=== PATIENT | female | born 1935 | race Caucasian/White ===

== ENCOUNTER 2016-11-30 12:50 | Outpatient (CLI) | payer MEDICARE, OTHER | END 2016-11-30 12:51 | disposition home or self-care (01) | DX: Z12.31 Encounter for screening mammogram for malignant neoplasm of breast (principal) ==

== ENCOUNTER 2018-06-23 06:01 | Day surgery (SDC) | payer MEDICARE, OTHER ==
[2018-06-23] MEDS ORDERED: PHENYLEPHRINE 2.5% OPHTH 2 ML DROPS ONE (06:26)
[2018-06-23] MEDS ORDERED: KETOROLAC 0.45% OPHTH DROPS ONE (06:26)
[2018-06-23] MEDS ORDERED: PROPARACAINE 0.5% OPHTH DROPS 15 ML ONE (06:26)
[2018-06-23] MEDS ORDERED: CYCLOPENTOLATE 1% OPHTH DROPS 2 ML ONE (06:26)
[2018-06-23] MEDS ORDERED: PROPARACAINE 0.5% OPHTH DROPS 15 ML LEFTEYE ONE ×2 (06:45→07:24)
[2018-06-23] MEDS ORDERED: KETOROLAC 0.45% OPHTH DROPS LEFTEYE ONE (06:45)
[2018-06-23] MEDS ORDERED: CYCLOPENTOLATE 1% OPHTH DROPS 2 ML LEFTEYE ONE (06:45)
[2018-06-23] MEDS ORDERED: PHENYLEPHRINE 2.5% OPHTH 2 ML DROPS LEFTEYE ONE (06:45)
--- NOTE | 2018-06-23 06:48 | ANESTHESIA ---
Pre-Anesthesia VS, & Labs - Diagnosis Left nuclear sclerotic cataract - Procedure Left phaco with IOL implant Vital Signs: Temp Pulse Resp BP Pulse Ox 36.5 C 74 18 124/75 92 06/23/18 06:38 06/23/18 06:38 06/23/18 06:38 06/23/18 06:38 06/23/18 06:38 Height 5 ft 2 in Weight (kg) 74.6 kg - NPO >8 hours - Is Patient ?: No Home Medications and Allergies Aspirin [Aspir 81] 81 mg PO DAILY 01/08/15 Carvedilol [Coreg] 6.25 mg PO DAILY 01/08/15 Cholecalciferol (Vitamin D3) [Vitamin D3] 1,000 unit PO DAILY 01/08/15 Glipizide [Glipizide ER] 2.5 mg PO DAILY 01/08/15 Levothyroxine [Synthroid] 50 mcg PO QDAC 01/08/15 Lisinopril 20 mg PO DAILY 01/08/15 Rosuvastatin Calcium [Crestor] 20 mg PO DAILY 01/08/15 Amlodipine Besylate 5 mg PO DAILY 01/10/15 Allergies/Adverse Reactions: Allergies Allergy/AdvReac Type Severity Reaction Status Date / Time No Known Drug Allergies Allergy Verified 01/08/15 07:51 Anes History & Medical History - Medical History Cardiovascular: reports: Hypertension, High cholesterol Pulmonary: reports: None, COPD (longtime smoking history) Gastrointestinal: reports: None Urinary: reports: None Musculoskeletal: reports: Osteoarthritis, Chronic back pain Endocrine/Autoimmune: reports: Type 2 diabetes, HyPOthyroidism Skin: reports: None - Surgical History General: Colonoscopy Cardiothoracic: Coronary stent Gynecologic: Hysterectomy, Oophrectomy Exam General: Alert Mouth Openin Fingerbreadth Mallampati classification: II Respiratory: Decreased breath sounds Cardiovascular: Regular rate, Normal S1, Normal S2 Mental/Cognitive Status: Alert/Oriented X3 Plan Anesthesia Type: MAC Consent for Procedure(s) Verified and Reviewed: No Code Status: Attempt Resuscitation ASA classification: 3-Severe systemic disease Is this case an emergency?: No
[2018-06-23] MEDS ORDERED: LACTATED RINGERS 500 ML IV ONE (06:52)
[2018-06-23] MEDS ORDERED: EPINEPHrine 1 MG/ML AMP ONE (07:08)
[2018-06-23] MEDS ORDERED: BRIMONIDINE 0.2% OPHTH DROPS 5 ML ONE (07:09)
[2018-06-23] MEDS ORDERED: TIMOLOL 0.5% OPHTH DROPS ONE (07:09)
[2018-06-23] MEDS ORDERED: TRIAMCIN/MOXIFLOX OPHTHALMIC 0.6 ML VIAL IO ONE (07:09)
[2018-06-23] MEDS ORDERED: BSS/LIDOCAINE/EPINEPHRINE 1 ML SYRINGE ONE (07:10)
[2018-06-23] MEDS ORDERED: VANCOMYCIN OPHTHALMI 8MG/0.8ML 8 MG/0.8 ML SYRINGE IO ONE (07:10)
[2018-06-23] MEDS ORDERED: CHONDR SULF/HYALURONATE SYRINGE IO ONE (07:28)
[2018-06-23] MEDS ORDERED: EPINEPHrine 1 MG/ML AMP IR ONE (07:28)
[2018-06-23] MEDS ORDERED: MIDAZOLAM 2 MG/2 ML VIAL IVP ONE (07:30)
[2018-06-23] MEDS ORDERED: BSS/LIDOCAINE/EPINEPHRINE 1 ML SYRINGE IO ONE (07:37)
[2018-06-23] MEDS ORDERED: BRIMONIDINE 0.2% OPHTH DROPS 5 ML OPTH ONE (07:39)
[2018-06-23] MEDS ORDERED: TIMOLOL 0.5% OPHTH DROPS OPTH ONE (07:39)
[2018-06-23 07:59] VITALS: BP 121/62
--- NOTE | 2018-06-23 09:48 | OPERATIVE REPORT ---
DATE OF SERVICE: 06/23/2018 Physician: Kike Garza MD PREOPERATIVE DIAGNOSIS: Visually significant cataract, left eye. This was her first cataract surgery. POSTOPERATIVE DIAGNOSIS: Visually significant cataract, left eye. NAME OF PROCEDURE: Phacoemulsification with posterior chamber intraocular lens implant, left eye. SURGEON: Dr. Kike Garza. ANESTHESIA: Monitored anesthesia care. COMPLICATIONS: None. OPERATIVE INDICATIONS: This is an 82-year-old woman with progressive vision loss in left eye due to 4+ nuclear sclerotic cataract. Best corrected visual acuity was 20/40 with glare to 20/80 in the lef t eye. Indications for surgery are overall decrease in vision, difficulty seeing street signs, diffi culty driving in low light or at night, and difficulty driving at night because of headlights from ot her vehicles and/or street lights. She was consented at length concerning risks and benefits of aleida ract surgery, after which she expressed a desire to proceed with surgery. OPERATIVE PROCEDURE: Patient was taken into OR #3 and placed under monitored anesthesia care. Surgi priya timeout was conducted confirming correct patient, correct procedure, and correct surgical site. She was given topical anesthesia and prepped and draped in usual sterile fashion. The eye was entere d at the 6 and 3-o'clock positions. Intracameral Shugarcaine was injected into the anterior chamber, followed by Viscoat. A continuous-tear curvilinear capsulorrhexis was performed. Nucleus was hydro dissected and phacoemulsified. The cortex was evacuated using automated infusion and aspiration. Pr ovisc was injected in the capsular bag, and a 21.0-diopter intraocular lens inserted in the bag. Olman roximately 0.8 mL of a mixture of triamcinolone, moxifloxacin, and vancomycin was injected subconjunc tivally in the superior quadrant for infection and inflammation prophylaxis. I and A was used to marlyn boris the viscoelastic materials. Eye was inflated to physiologic pressure using a balanced salt radha ution and found to be watertight. Patient was taken from the operating room in good condition and gi shruthi postoperative instructions. TD: 06/23/2018 07:55
== END 2018-06-23 06:02 | disposition home or self-care (01) ==
LOC: SDS 06:01
PROVIDERS: ATTEND Ophthalmology
PROC: 08RK3JZ Replacement of Left Lens with Synthetic Substitute, Percutaneous Approach (ICD-10-PCS; principal; 2018-06-23 07:30)
DX: H25.12 Age-related nuclear cataract, left eye (principal); E11.9 Type 2 diabetes mellitus without complications; I11.0 Hypertensive heart disease with heart failure; I50.9 Heart failure, unspecified; E78.00 Pure hypercholesterolemia, unspecified; E03.9 Hypothyroidism, unspecified; J44.9 Chronic obstructive pulmonary disease, unspecified; Z87.891 Personal history of nicotine dependence; Z95.5 Presence of coronary angioplasty implant and graft
CPT/HCPCS: 66984; A9270; J3490; V2632

== ENCOUNTER 2018-07-28 05:55 | Day surgery (SDC) | payer MEDICARE, OTHER ==
[2018-07-28] MEDS ORDERED: PHENYLEPHRINE 2.5% OPHTH 2 ML DROPS ONE (06:27)
[2018-07-28] MEDS ORDERED: KETOROLAC 0.45% OPHTH DROPS ONE (06:27)
[2018-07-28] MEDS ORDERED: CYCLOPENTOLATE 1% OPHTH DROPS 2 ML ONE (06:27)
[2018-07-28] MEDS ORDERED: PROPARACAINE 0.5% OPHTH DROPS 15 ML ONE (06:28)
[2018-07-28] MEDS ORDERED: LACTATED RINGERS 500 ML IV ONE (06:50)
[2018-07-28] MEDS ORDERED: EPINEPHrine 1 MG/ML AMP ONE (06:58)
[2018-07-28] MEDS ORDERED: TRIAMCIN/MOXIFLOX OPHTHALMIC 0.6 ML VIAL IO ONE ×3 (06:58→07:44)
[2018-07-28] MEDS ORDERED: VANCOMYCIN OPHTHALMI 8MG/0.8ML 8 MG/0.8 ML SYRINGE IO ONE (06:59)
[2018-07-28] MEDS ORDERED: TIMOLOL 0.5% OPHTH DROPS ONE (06:59)
[2018-07-28] MEDS ORDERED: BRIMONIDINE 0.2% OPHTH DROPS 5 ML ONE (06:59)
[2018-07-28] MEDS ORDERED: BSS/LIDOCAINE/EPINEPHRINE 1 ML SYRINGE ONE (06:59)
[2018-07-28] MEDS ORDERED: PROPARACAINE 0.5% OPHTH DROPS 15 ML RIGHTEYE ONE ×2 (07:00→07:44)
[2018-07-28] MEDS ORDERED: KETOROLAC 0.45% OPHTH DROPS RIGHTEYE ONE (07:00)
[2018-07-28] MEDS ORDERED: PHENYLEPHRINE 2.5% OPHTH 2 ML DROPS RIGHTEYE ONE (07:00)
[2018-07-28] MEDS ORDERED: CYCLOPENTOLATE 1% OPHTH DROPS 2 ML RIGHTEYE ONE (07:00)
--- NOTE | 2018-07-28 07:00 | ANESTHESIA ---
Pre-Anesthesia VS, & Labs - Diagnosis Right senile combined cataract - Procedure Right phaco with IOL implant Height 5 ft 2 in - NPO >8 hours - Is Patient ?: No - Lab Results Lab results reviewed: No Home Medications and Allergies Home Medications: Ambulatory Orders SITagliptin [Januvia] 100 mg PO DAILY 07/27/18 Aspirin [Aspir 81] 81 mg PO DAILY 01/08/15 Carvedilol [Coreg] 6.25 mg PO DAILY 01/08/15 Cholecalciferol (Vitamin D3) [Vitamin D3] 1,000 unit PO DAILY 01/08/15 Glipizide [Glipizide ER] 2.5 mg PO DAILY 01/08/15 Levothyroxine [Synthroid] 75 mcg PO QDAC 01/08/15 Lisinopril 20 mg PO DAILY 01/08/15 Rosuvastatin Calcium [Crestor] 20 mg PO DAILY 01/08/15 Amlodipine Besylate 5 mg PO DAILY 01/10/15 SITagliptin [Januvia] 100 mg PO DAILY 07/27/18 Allergies/Adverse Reactions: Allergies Allergy/AdvReac Type Severity Reaction Status Date / Time No Known Drug Allergies Allergy Verified 07/27/18 14:02 Anes History & Medical History - Anesthetic History Family history of Malignant Hyperthermia: Denies - Medical History Cardiovascular: reports: Congestive heart failure, Hypertension, High cholesterol Pulmonary: reports: Shortness of breath Gastrointestinal: reports: None Urinary: reports: None Neuro: reports: None Musculoskeletal: reports: Osteoarthritis Endocrine/Autoimmune: reports: Type 2 diabetes Skin: reports: None Smoking Status: Former smoker Psychosocial: reports: No issues indicated - Surgical History General: Colonoscopy Cardiothoracic: Coronary stent Gynecologic: Hysterectomy Exam General: Alert Mouth Opening: Greater than 4 Fingerbreadths Neck Mobility: Normal Mallampati classification: II Respiratory: Lungs clear Cardiovascular: Regular rate Extremities: No clubbing Mental/Cognitive Status: Alert/Oriented X3 Cognitive Status: Within normal limits Plan Anesthesia Type: MAC Consent for Procedure(s) Verified and Reviewed: Yes Code Status: Attempt Resuscitation ASA classification: 3-Severe systemic disease Is this case an emergency?: No
[2018-07-28] MEDS ORDERED: MIDAZOLAM 2 MG/2 ML VIAL IVP ONE (07:35)
[2018-07-28] MEDS ORDERED: CHONDR SULF/HYALURONATE SYRINGE IO ONE (07:43)
[2018-07-28] MEDS ORDERED: BRIMONIDINE 0.2% OPHTH DROPS 5 ML OPTH ONE (07:43)
[2018-07-28] MEDS ORDERED: EPINEPHrine 1 MG/ML AMP IVP ONE (07:43)
[2018-07-28] MEDS ORDERED: TIMOLOL 0.5% OPHTH DROPS OPTH ONE (07:43)
[2018-07-28] MEDS ORDERED: BSS/LIDOCAINE/EPINEPHRINE 1 ML SYRINGE IO ONE ×2 (07:44)
[2018-07-28 08:14] VITALS: BP 136/57
--- NOTE | 2018-07-28 08:21 | OPERATIVE REPORT ---
DATE OF SERVICE: 07/28/2018 Physician: Kike Garza MD PREOPERATIVE DIAGNOSIS: Visually significant cataract, right eye. Cataract surgery was performed on the left eye on June 23, 2018. POSTOPERATIVE DIAGNOSIS: Visually significant cataract, right eye. Cataract surgery was performed o n the left eye on June 23, 2018. PROCEDURE: Phacoemulsification with posterior chamber intraocular lens implant, right eye. SURGEON: Kike Garza MD ANESTHESIA: Monitored anesthesia care. COMPLICATIONS: None. OPERATIVE INDICATIONS: This is an 82-year-old woman with progressive vision loss in the right eye du e to 4+ nuclear sclerotic cataract. Best corrected visual acuity was 20/25 with glare to 20/70 in th e right eye. Indications for surgery are overall decrease in vision, difficulty seeing street signs, difficulty driving in low light or at night, difficulty driving at night because of headlights from other vehicles and/or street lights and difficulty with glare or bright lights in any situation. She was consented at length concerning risks and benefits of cataract surgery, after which she expressed her desire to proceed with surgery. OPERATIVE PROCEDURE: The patient was taken into OR #3 and placed under monitored anesthesia care. S urgical timeout was conducted confirming correct patient, correct procedure, and correct surgical sit e. She was given topical anesthesia, and prepped and draped in usual sterile fashion. The eye was e ntered at the 12 and 9 o'clock positions. Intracameral Shugarcaine was injected into the anterior ch vincent, followed by Viscoat. A continuous-tear curvilinear capsulorrhexis was performed. The nucleus was hydrodissected and phacoemulsified. Cortex was evacuated using automated infusion and aspiratio n. Provisc was injected in the capsular bag, and a 22.0 diopter intraocular lens was inserted in the bag. Approximately 0.8 mL of a mixture of triamcinolone, moxifloxacin and vancomycin was injected s ubconjunctivally in the superior quadrant for infection and inflammation prophylaxis. I and A, was u sed to evacuate the viscoelastic material. The eye was inflated to physiologic pressure using balanc ed salt solution and found to be watertight. The patient was taken from the operating room in good c ondition and given postoperative instructions. TD: 07/28/2018 08:07
== END 2018-07-28 05:56 | disposition home or self-care (01) ==
LOC: SDS 05:55
PROVIDERS: ATTEND Ophthalmology
PROC: 08RJ3JZ Replacement of Right Lens with Synthetic Substitute, Percutaneous Approach (ICD-10-PCS; principal; 2018-07-28 07:30)
DX: H25.11 Age-related nuclear cataract, right eye (principal); I50.9 Heart failure, unspecified; E11.9 Type 2 diabetes mellitus without complications; E78.00 Pure hypercholesterolemia, unspecified; Z87.891 Personal history of nicotine dependence; E03.9 Hypothyroidism, unspecified
CPT/HCPCS: 66984; A9270; J3490; V2632

== ENCOUNTER 2018-11-14 19:10 | Outpatient (CLI) | payer MEDICARE, OTHER | END 2018-11-14 19:11 | disposition critical access hospital (66) | LOC: EMS 19:10 | PROVIDERS: ATTEND Surgery | DX: R55 Syncope and collapse (principal); R47.89 Other speech disturbances | CPT/HCPCS: A0425; A0427 ==

== ENCOUNTER 2018-11-14 19:23 | Emergency (ER) | payer MEDICARE, OTHER ==
[2018-11-14 19:54] LABS: BASOPHILS % (AUTO) 0.7 %; EOSINOPHILS # (AUTO) 0.2 10^3/uL (0.0-0.7); EOSINOPHILS % (AUTO) 2.7 %; HGB - HEMOGLOBIN 9.7 g/dL (12.0-16.0); LYMPHOCYTES # (AUTO) 1.4 10^3/uL (1.5-3.5); LYMPHOCYTES % (AUTO) 22.3 %; MEAN CORPUSCULAR HEMOGLOBIN 28.7 pg (27.0-31.0); MEAN CORPUSCULAR HGB CONC 32.9 g/dL (32.0-36.0); MEAN CORPUSCULAR VOLUME 87.2 fL (81.0-99.0); MEAN PLATELET VOLUME 9.1 fL (7.9-10.8); MONOCYTES # (AUTO) 0.7 10^3/uL (0.0-1.0); MONOCYTES % (AUTO) 10.8 %; NEUTROPHILS % (AUTO) 63.5 %; PLT - PLATELET COUNT 155 10^3/uL (130-450); RED BLOOD COUNT 3.38 10^6/uL (4.20-5.40); WHITE BLOOD COUNT 6.3 x10^3/uL (4.8-10.8)
[2018-11-14 20:10] LABS: ALBUMIN 3.2 g/dL (3.2-5.5); ALBUMIN/GLOBULIN RATIO 1.5 (1.0-2.2); BILIRUBIN,TOTAL 0.6 mg/dL (0.2-1.0); CALCIUM 7.8 mg/dL (8.5-10.3); CREATININE 1.7 mg/dL (0.4-1.0); TOTAL PROTEIN 5.3 g/dL (6.7-8.2)
--- NOTE | 2018-11-14 20:44 | ED Physician Documentation ---
PD HPI SYNCOPE - Stated complaint Stated Complaint: SYNCOPE - Chief complaint Chief Complaint: General - History obtained from History obtained from: Patient, Family - History of Present Illness Witnessed: Witnessed Timing - onset: Today Duration: Minutes Preceding symptoms: Light headed. No: Headache, Chest pain, Abdominal pain, Nausea / vomiting Associated symptoms: Diaphoresis. No: Headache, Chest pain, Dyspnea Contributing factors: No: Recent med change, Decreased PO intake (She had finished eating and was seeming comfortable. She denied any abdominal pain cramps or nausea. She got up to go to the next room and looked pale and was sweaty. Her son helped her sit down and she appeared to pass out. There is no fall to it. She woke back up after a minute or so and he tried walking her to the next room and she was still only slightly awake and then seemed to faint completely again. He called 911. Instructed him to lay her down, which she did. She seemed to awaken a bit after that by EMS arrival. EMS did note her blood pressure to be in the 80s systolic and her heart rate to be 55-58. Her son says she had episodes similar to this without fully fainting after meals a couple of times in the last week. She has not had a recent change in medicines. She has had emotional stress with her being in the ICU and has not slept well the past week. She did have a little bit less food intake earlier in the week but had eaten okay this past day or 2.) Injury occurred: No: Fell, Head injury, Neck injury Review of Systems Constitutional: denies: Fever Nose: denies: Rhinorrhea / runny nose, Congestion Throat: denies: Sore throat Cardiac: denies: Chest pain / pressure, Palpitations, Pedal edema, Calf pain Respiratory: denies: Dyspnea, Cough, Wheezing GI: denies: Abdominal Pain, Nausea, Vomiting, Diarrhea Neurologic: reports: Near syncope, Syncope. denies: Generalized weakness, Altered mental status, Headache Psychiatric: reports: Insomnia. 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 Cardiovascular: Coronary stent - Present Medications Home Medications: Ambulatory Orders Medication Instructions Recorded Confirmed Aspirin [Aspir 81] 81 mg PO DAILY 01/08/15 11/14/18 Carvedilol [Coreg] 6.25 mg PO DAILY 01/08/15 11/14/18 Cholecalciferol (Vitamin D3) 1,000 unit PO DAILY 01/08/15 11/14/18 [Vitamin D3] Glipizide [Glipizide ER] 2.5 mg PO DAILY 01/08/15 11/14/18 Levothyroxine [Synthroid] 75 mcg PO QDAC 01/08/15 11/14/18 Lisinopril 20 mg PO DAILY 01/08/15 11/14/18 Rosuvastatin Calcium [Crestor] 20 mg PO DAILY 01/08/15 11/14/18 Amlodipine Besylate 5 mg PO DAILY 01/10/15 11/14/18 SITagliptin [Januvia] 100 mg PO DAILY 07/27/18 11/14/18 hydroCHLOROthiazide 50 mg PO DAILY 11/14/18 11/14/18 [Hydrochlorothiazide] - Allergies Allergies/Adverse Reactions: Allergies Allergy/AdvReac Type Severity Reaction Status Date / Time No Known Drug Allergies Allergy Verified 11/14/18 19:33 - Social History Does the pt smoke?: No Smoking Status: Former smoker Does the pt drink ETOH?: No Does the pt have substance abuse?: No PD ED PE NORMAL - Vitals Vital signs reviewed: Yes (Her vital signs are showing slightly low heart rate initially in the) - General General: Alert and oriented X 3, No acute distress, Well developed/nourished - HEENT HEENT: Ears normal, Moist mucous membranes, Pharynx benign - Neck Neck: Supple, no meningeal sign, No adenopathy - Cardiac Cardiac: RRR, No murmur - Respiratory Respiratory: Clear bilaterally - Abdomen Abdomen: Normal bowel sounds, Soft, Non tender - Back Back: No CVA TTP - Derm Derm: Normal color, Warm and dry - Extremities Extremities: No tenderness to palpate, Normal ROM s pain, No edema, No calf tenderness / cord - Neuro Neuro: Alert and oriented X 3, No motor deficit, Normal speech Results - Vitals Vitals: Vital Signs - 24 hr 11/14/18 11/14/1819 19:29 19:53 20:38 Temperature 36.0 C L Heart Rate 54 L 55 L 70 Heart Rate [ Sitting] Heart Rate [ Standing] Heart Rate [ Supine] Respiratory 16 14 18 Rate Blood Pressure 87/50 L 96/53 L 119/60 Blood Pressure [Sitting] Blood Pressure [Standing] Blood Pressure [Supine] O2 Saturation 94 95 96 11/14/18 11/14/18 11/14/18 21:43 22:28 23:04 Temperature 36.6 C Heart Rate 75 78 Heart Rate [ 96 Sitting] Heart Rate [ 88 Standing] Heart Rate [ 82 Supine] Respiratory 17 18 Rate Blood Pressure 137/68 H 143/77 H Blood Pressure 150/77 H [Sitting] Blood Pressure 156/78 H [Standing] Blood Pressure 135/84 H [Supine] O2 Saturation 97 96 Oxygen O2 Source Room air - EKG (time done) 19:42 Rate: Rate (enter#) (52) Rhythm: Sinus bradycardia [place]: Normal Intervals: Normal [place] QRS: Normal Ischemia: Normal ST segments. No: ST elevation c/w ischemia, ST depression - Labs Labs: Laboratory Tests 11/14/18 11/14/18 11/14/18 19:50 19:50 19:50 WBC 6.3 RBC 3.38 L Hgb 9.7 L Hct 29.5 L MCV 87.2 MCH 28.7 MCHC 32.9 RDW 17.0 H Plt Count 155 MPV 9.1 Neut # (Auto) 4.0 Lymph # (Auto) 1.4 L [place] # (Auto) 0.7 Eos # (Auto) 0.2 Baso # (Auto) 0.0 Absolute Nucleated RBC 0.01 Nucleated RBC % 0.1 Sodium 139 Potassium 3.8 Chloride 106 Carbon Dioxide 26 Anion Gap 7.0 BUN 37 H Creatinine 1.7 H Estimated GFR (MDRD) 29 L Glucose 185 H Calcium 7.8 L Magnesium 1.9 Total Bilirubin 0.6 AST 20 ALT 25 Alkaline Phosphatase 41 L Troponin I Total Protein 5.3 L Albumin 3.2 Globulin 2.1 Albumin/Globulin Ratio 1.5 Lipase 39 11/14/18 19:50 WBC RBC Hgb Hct MCV MCH MCHC RDW Plt Count MPV Neut # (Auto) Lymph # (Auto) [place] # (Auto) Eos # (Auto) Baso # (Auto) Absolute Nucleated RBC Nucleated RBC % Sodium Potassium Chloride Carbon Dioxide Anion Gap BUN Creatinine Estimated GFR (MDRD) Glucose Calcium Magnesium Total Bilirubin AST ALT Alkaline Phosphatase Troponin I < 0.04 Total Protein Albumin Globulin Albumin/Globulin Ratio Lipase PD MEDICAL DECISION MAKING - ED course Complexity details: considered differential (She had transient low blood pressure and heart rate. She has been not sleeping as well because her is in the ICU. She has been taking her medicines regularly. Her son says she has been eating okay and drinking fluids. On her however if her medications are just having an increased effect of her baseline even though the doses are the same. I would have her decrease her carvedilol given both some relative bradycardia and transient hypotension. She is also on lisinopril twice a day according to her med send list presented by her son. I would decrease that to once daily. She seems okay here and shared decision is to not necessarily need to admit her in the hospital as she has been doing well here for a few hours.), d/w patient Departure - Departure Disposition: 01 Home, Self Care Clinical Impression: Transient hypotension Syncopal episodes Qualifiers: Syncope type: unspecified Qualified Code(s): R55 - Syncope and collapse Condition: Stable Record reviewed to determine appropriate education?: Yes Instructions: ED Syncope Vasovagal Follow-Up: Justice Markham MD [Primary Care Provider] - Comments: Stay well-hydrated. Try to sleep well tonight. I would hold your carvedilol (Coreg) medication until follow-up with your primary care provider. Also take the lisinopril only once daily instead of twice as it says on your list. Continue your other medications. Return if further episodes of lightheadedness. Follow-up with your primary care later this week, call in the morning for an appointment. Discharge Date/Time: 11/14/18 23:04
[2018-11-14] MEDS ORDERED: SODIUM CHLORIDE 0.9% 500 ML IV ONE (21:09)
[2018-11-14 23:05] VITALS: BP 143/77
== END 2018-11-14 23:04 | disposition home or self-care (01) ==
LOC: EDUNIT# → ED 19:23
DX: I95.89 Other hypotension (principal); R00.1 Bradycardia, unspecified; R55 Syncope and collapse; I11.0 Hypertensive heart disease with heart failure; I50.9 Heart failure, unspecified; E11.9 Type 2 diabetes mellitus without complications; Z79.84 Long term (current) use of oral hypoglycemic drugs; Z79.82 Long term (current) use of aspirin; Z87.891 Personal history of nicotine dependence
CPT/HCPCS: 36415; 80053; 83690; 83735; 84484; 85025; 93005; 99284

== ENCOUNTER 2018-11-17 08:00 | Outpatient (CLI) | payer MEDICARE, OTHER ==
[2018-11-17 13:14] LABS: BASOPHILS # (AUTO) 0.1 10^3/uL (0.0-0.1); BASOPHILS % (AUTO) 0.6 %; EOSINOPHILS # (AUTO) 0.2 10^3/uL (0.0-0.7); EOSINOPHILS % (AUTO) 1.3 %; HGB - HEMOGLOBIN 11.9 g/dL (12.0-16.0); LYMPHOCYTES # (AUTO) 1.7 10^3/uL (1.5-3.5); LYMPHOCYTES % (AUTO) 11.1 %; MEAN CORPUSCULAR HEMOGLOBIN 29.1 pg (27.0-31.0); MEAN CORPUSCULAR HGB CONC 33.6 g/dL (32.0-36.0); MEAN CORPUSCULAR VOLUME 86.6 fL (81.0-99.0); MEAN PLATELET VOLUME 9.7 fL (7.9-10.8); MONOCYTES % (AUTO) 6.7 %; NEUTROPHILS % (AUTO) 80.3 %; PLT - PLATELET COUNT 183 10^3/uL (130-450); RED BLOOD COUNT 4.09 10^6/uL (4.20-5.40); RED CELL DISTRIBUTION WIDTH 16.8 % (12.0-15.0)
[2018-11-17 13:30] LABS: ALBUMIN 3.9 g/dL (3.2-5.5); ALBUMIN/GLOBULIN RATIO 1.2 (1.0-2.2); BILIRUBIN,TOTAL 0.7 mg/dL (0.2-1.0); CALCIUM 9.4 mg/dL (8.5-10.3); CREATININE 1.6 mg/dL (0.4-1.0); TOTAL PROTEIN 7.1 g/dL (6.7-8.2)
[2018-11-17 13:41] LABS: FERRITIN 16.5 ng/mL (11.0-306.8)
[2018-11-17 13:45] LABS: FOLATE 22.46 ng/mL (5.90 - >24.8)
== END 2018-11-17 23:59 | disposition home or self-care (01) ==
LOC: LAB.WCP 08:00
PROVIDERS: ATTEND Family Medicine
DX: D50.9 Iron deficiency anemia, unspecified (principal); E03.9 Hypothyroidism, unspecified
CPT/HCPCS: 36415; 80053; 82607; 82728; 82746; 83540; 83921; 84443; 84466; 85025

== ENCOUNTER 2018-11-22 09:16 | Outpatient (CLI) | payer MEDICARE, OTHER | END 2018-11-22 09:17 | disposition home or self-care (01) | LOC: DI 09:16 | PROVIDERS: ATTEND Family Medicine | DX: R55 Syncope and collapse (principal); I25.10 Atherosclerotic heart disease of native coronary artery without angina pectoris; D50.9 Iron deficiency anemia, unspecified; E03.9 Hypothyroidism, unspecified; I10 Essential (primary) hypertension; I07.1 Rheumatic tricuspid insufficiency | CPT/HCPCS: 93306 ==

== ENCOUNTER 2018-11-25 06:57 | Outpatient (CLI) | payer MEDICARE, OTHER | END 2018-11-25 06:58 | disposition short-term general hospital (02) | LOC: EMS 06:57 | PROVIDERS: ATTEND Surgery | DX: I95.9 Hypotension, unspecified (principal); R00.1 Bradycardia, unspecified | CPT/HCPCS: A0425; A0427 ==

== ENCOUNTER 2019-01-09 09:24 | Outpatient (CLI) | payer MEDICARE, OTHER | END 2019-01-09 09:25 | disposition critical access hospital (66) | LOC: EMS 09:24 | PROVIDERS: ATTEND Surgery | DX: S01.01XA Laceration without foreign body of scalp, initial encounter (principal); W01.190A Fall on same level from slipping, tripping and stumbling with subsequent striking against furniture, initial encounter; Y92.003 Bedroom of unspecified non-institutional (private) residence as the place of occurrence of the external cause | CPT/HCPCS: A0425; A0429 ==

== ENCOUNTER 2019-01-09 09:34 | Emergency (ER) | payer MEDICARE, OTHER ==
[2019-01-09] MEDS ORDERED: LIDOCAINE-EPINEPH-TETRACAINE 3 ML SYRINGE TOP STA (09:45)
[2019-01-09] MEDS ORDERED: ACETAMINOPHEN 325 MG TABLET PO STA (09:45)
--- NOTE | 2019-01-09 09:48 | ED Physician Documentation ---
PD HPI HEAD INJURY - Stated complaint Stated Complaint: FALL/ HEAD LAC - Chief complaint Chief Complaint: Trauma Hd/Nk - History obtained from History obtained from: Patient - History of Present Illness Mechanism of head injury: Fell (She says she was in the kitchen and turned and lost her footing and tripped and fell striking her forehead on the edge of the counter. She did fall to the ground but caught herself with her hands. She denied being knocked out. She did not feel badly prior to that.) Where head injury occurred: Home Timing - onset: Today Location of injury: Front Associated symptoms: No: LOC, AMS, Nausea / vomiting Symptoms worsen with: Palpation Contributing factors: No: Anticoagulated, Intoxicated Similar symptoms before: Has not had sx before Review of Systems Constitutional: denies: Fever, Chills Nose: denies: Rhinorrhea / runny nose, Congestion Throat: denies: Sore throat Cardiac: denies: Chest pain / pressure, Palpitations, Pedal edema Respiratory: denies: Cough GI: denies: Nausea, Vomiting, Diarrhea Skin: reports: Laceration (s) (just today) Neurologic: denies: Focal weakness, Syncope, Altered mental status PD PAST MEDICAL HISTORY - Past Medical History Cardiovascular: Congestive heart failure, Hypertension, High cholesterol Respiratory: Shortness of breath Neuro: None Endocrine/Autoimmune: Type 2 diabetes GI: None : None HEENT: None Psych: None Musculoskeletal: Osteoarthritis Derm: None - Past Surgical History 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 Cardiovascular: Coronary stent - Present Medications Home Medications: Ambulatory Orders Medication Instructions Recorded Confirmed Aspirin [Aspir 81] 81 mg PO DAILY 01/08/15 01/09/19 Carvedilol [Coreg] 6.25 mg PO DAILY 01/08/15 01/09/19 Cholecalciferol (Vitamin D3) 2,000 unit PO DAILY 01/08/15 01/09/19 [Vitamin D3] Glipizide [Glipizide ER] 2.5 mg PO DAILY 01/08/15 01/09/19 Levothyroxine [Synthroid] 75 mcg PO QDAC 01/08/15 01/09/19 Rosuvastatin Calcium [Crestor] 20 mg PO DAILY 01/08/15 01/09/19 Amlodipine Besylate 5 mg PO DAILY 01/10/15 01/09/19 SITagliptin [Januvia] 100 mg PO DAILY 07/27/18 01/09/19 Ferrous Sulfate 1 tab ORAL DAILY 01/09/19 01/09/19 Gabapentin 1 cap ORAL DAILY 01/09/19 01/09/19 - Allergies Allergies/Adverse Reactions: Allergies Allergy/AdvReac Type Severity Reaction Status Date / Time No Known Drug Allergies Allergy Verified 01/09/19 09:40 - Social History Does the pt smoke?: No Smoking Status: Former smoker Does the pt drink ETOH?: No Does the pt have substance abuse?: No PD ED PE NORMAL - Vitals Vital signs reviewed: Yes - General General: Alert and oriented X 3, No acute distress, Well developed/nourished - HEENT HEENT: Pharynx benign, Dentition benign, Other (Upper forehead into the frontal scalp shows a 6 cm laceration without any foreign body. It goes full-thickness through the skin showing the [place]ale[place]. No obvious foreign bodies. 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, No motor deficit, No sensory deficit, Normal speech Eye Opening: Spontaneous Motor: Obeys Commands Verbal: Oriented GCS Score: 15 Results - Vitals Vitals: Vital Signs - 24 hr 01/09/19 01/09/19 09:36 11:23 Temperature 36.5 C 36.8 C Heart Rate 89 69 Respiratory 18 16 Rate Blood Pressure 183/69 H 179/71 H O2 Saturation 95 96 Oxygen O2 Source Room air - Rads (name of study) head CT Radiology: Prelim report reviewed, EMP read contemporaneously (No acute bleeding or fractures.), See rad report Procedures - Laceration (location) frontal forehead and scalp Length in cm: 6 Wound type: Linear, Into subcut fat, Clean. No: Contaminated Neurovascular status: Sensory intact Anesthesia: LET, Lidocaine 1% with epi Wound Preparation: Wound explored, To the base. No: FB identified Deep layer closure: Vicryl, size #-0 - enter number (4), # sutures - enter number (5) Skin layer closure: Nylon, Running, Size #-0 - enter number (5), Sutures - enter # (18) Other: Patient tolerated well, No complications, Tetanus UTD Complexity: Intermediate PD MEDICAL DECISION MAKING - ED course Complexity details: considered differential, d/w patient Departure - Departure Disposition: 01 Home, Self Care Clinical Impression: Fall from slip, trip, or stumble Qualifiers: Encounter type: initial encounter Qualified Code(s): W01.0XXA - Fall on same level from slipping, tripping and stumbling without subsequent striking against object, initial encounter Laceration of forehead Qualifiers: Encounter type: initial encounter Qualified Code(s): S01.81XA - Laceration without foreign body of other part of head, initial encounter Condition: Stable Record reviewed to determine appropriate education?: Yes Instructions: ED Laceration Facial Sutr Tape Follow-Up: Justice Markham MD [Primary Care Provider] - Comments: It is okay to wash and shower. Clean off the wound twice a day with soap and water, or peroxide and water. Apply some antibiotic ointment to it to keep it moist. Also to watch for signs of infection such as purulence, redness or increasing pain. Return to your primary care or the ER at the specified time for suture removal. Suture removal 8 to 10 days. Discharge Date/Time: 01/09/19 11:26
--- NOTE | 2019-01-09 10:34 | CT Report ---
Reason: fell and struck frontal /forehead Procedure Date: 01/09/2019 Accession Number: [id number] / [id number] Procedure: CT - HEAD WO CPT Code: FULL RESULT: EXAM: CT HEAD EXAM DATE: 01/09/2019 10:19 AM. CLINICAL HISTORY: Fell and struck frontal/forehead. COMPARISON: None. TECHNIQUE: Multiaxial CT images were obtained from the foramen magnum to the vertex. Reformats: Sagittal and coronal. IV contrast: None. In accordance with CT protocol optimization, one or more of the following dose reduction techniques were utilized for this exam: automated exposure control, adjustment of mA and/or KV based on patient size, or use of iterative reconstructive technique. FINDINGS: Parenchyma: There is a small focal area of encephalomalacia involving the right frontal cortex and subcortical white matter consistent with sequela of remote infarction. There is confluent low density in the periventricular white matter most likely indicating chronic microvascular ischemic changes. No intraparenchymal hemorrhage. No evidence of mass, midline shift, or CT findings of acute infarction. Extraaxial Spaces: Normal for age. No subdural or epidural collections identified. Ventricles: Normal in size and position. Sinuses and Orbits: Imaged paranasal sinuses, orbits, and mastoids show no significant abnormality. Bones: No evidence of fracture or calvarial defect. Other: Soft tissue swelling over the right forehead and frontal scalp with small focal laceration. IMPRESSION: 1. Right frontal scalp injury with small laceration. No evidence of calvarial fracture or acute intracranial injury/hemorrhage. 2. 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 No evidence of acute infarction by CT. RAD[facility]
[2019-01-09 11:24] VITALS: BP 179/71
== END 2019-01-09 11:26 | disposition home or self-care (01) ==
LOC: EDUNIT# → ED 09:34
DX: S01.01XA Laceration without foreign body of scalp, initial encounter (principal); S01.81XA Laceration without foreign body of other part of head, initial encounter; W01.198A Fall on same level from slipping, tripping and stumbling with subsequent striking against other object, initial encounter; Y92.000 Kitchen of unspecified non-institutional (private) residence as the place of occurrence of the external cause; I10 Essential (primary) hypertension; E11.9 Type 2 diabetes mellitus without complications; Z79.84 Long term (current) use of oral hypoglycemic drugs; Z79.82 Long term (current) use of aspirin; Z87.891 Personal history of nicotine dependence
CPT/HCPCS: 12032; 70450; 99282; 99283; A9270

== ENCOUNTER 2019-02-25 08:46 | Inpatient (IN) | payer MEDICARE, OTHER ==
[2019-02-25] MEDS ORDERED: CHERRY SYRUP 10 ML UDC PO ONE (10:34)
[2019-02-25] MEDS ORDERED: IPRATROPIUM/ALBUTEROL 3 ML NEB INH STA (10:34)
[2019-02-25] MEDS ORDERED: DEXAMETHASONE 10 MG/ML VIAL PO STA (10:34)
--- NOTE | 2019-02-25 10:37 | ED Physician Documentation ---
PD HPI URI - Stated complaint Stated Complaint: CONGESTED/COUGH - Chief complaint Chief Complaint: Resp - History obtained from History obtained from: Patient, Family - History of Present Illness Timing - onset: How many weeks ago (1) Timing duration: Weeks (1) Timing details: Gradual onset, Still present Associated symptoms: Chills, Nasal congestion, Rhinorrhea, Productive cough, Dyspnea Improves by: Rest, Medication Worsened by: Activity Similar symptoms before: Diagnosis (pneumonia) Recently seen: Not recently seen - Additional information Additional information: 83-year-old female developed chills 1 week ago and subsequently developed a cough and congestion and the cough worsened throughout the week as did increasing exertional dyspnea. Her daughter has asked her to come to the emergency department the past 2 days in a row the patient is finally acquiesced and is here today. Review of Systems Constitutional: reports: Chills. denies: Fever Eyes: denies: Decreased vision Ears: denies: Ear pain Nose: reports: Rhinorrhea / runny nose, Congestion Throat: denies: Sore throat Cardiac: denies: Chest pain / pressure, Palpitations Respiratory: reports: Dyspnea, Cough, Wheezing GI: reports: Diarrhea. denies: Abdominal Pain, Nausea, Vomiting : denies: Dysuria, Frequency Skin: denies: Rash Musculoskeletal: denies: Neck pain, Back pain PD PAST MEDICAL HISTORY - Past Medical History Cardiovascular: Congestive heart failure, Hypertension, High cholesterol Respiratory: COPD, Shortness of breath Neuro: None Endocrine/Autoimmune: Type 2 diabetes GI: None PRISONER CLASSIFICATION INTERVIEWER: None : None HEENT: None Psych: None Musculoskeletal: Osteoarthritis Derm: None - Past Surgical History Past Surgical History: Yes General: Colonoscopy /PRISONER CLASSIFICATION INTERVIEWER: Hysterectomy Cardiovascular: Coronary stent - Present Medications Home Medications: Ambulatory Orders Medication Instructions Recorded Confirmed Aspirin [Aspir 81] 81 mg PO DAILY 01/08/15 01/09/19 Carvedilol [Coreg] 6.25 mg PO DAILY 01/08/15 01/09/19 Cholecalciferol (Vitamin D3) 2,000 unit PO DAILY 01/08/15 01/09/19 [Vitamin D3] Glipizide [Glipizide ER] 2.5 mg PO DAILY 01/08/15 01/09/19 Levothyroxine [Synthroid] 75 mcg PO QDAC 01/08/15 01/09/19 Rosuvastatin Calcium [Crestor] 20 mg PO DAILY 01/08/15 01/09/19 Amlodipine Besylate 5 mg PO DAILY 01/10/15 01/09/19 SITagliptin [Januvia] 100 mg PO DAILY 07/27/18 01/09/19 Ferrous Sulfate 1 tab ORAL DAILY 01/09/19 01/09/19 Gabapentin 1 cap ORAL DAILY 01/09/19 01/09/19 - Allergies Allergies/Adverse Reactions: Allergies Allergy/AdvReac Type Severity Reaction Status Date / Time No Known Drug Allergies Allergy Verified 02/25/19 09:03 - Social History Does the pt smoke?: No Smoking Status: Never smoker Does the pt drink ETOH?: No Does the pt have substance abuse?: No - Immunizations Immunizations are current?: Yes - POLST Patient has POLST: No PD ED PE NORMAL - Vitals Vital signs reviewed: Yes (hypoxia on RA) - General General: Alert and oriented X 3, No acute distress, Well developed/nourished - HEENT HEENT: Atraumatic, PERRL, EOMI, Other (minimal inflamation to the left TM along the umbo ) - Neck Neck: Supple, no meningeal sign, No bony TTP - Cardiac Cardiac: RRR, No murmur - Respiratory Respiratory: No respiratory distress, Other (marked diminished breath sounds bilat with audible wheeze) - Abdomen Abdomen: Soft, Non tender - Back Back: No CVA TTP, No spinal TTP - Derm Derm: Normal color, Warm and dry, No rash - Extremities Extremities: No deformity, No edema - Neuro Neuro: Alert and oriented X 3, fusing machine tender 2-12 intact, No motor deficit, No sensory deficit, Normal speech Eye Opening: Spontaneous Motor: Obeys Commands Verbal: Oriented GCS Score: 15 - Psych Psych: Normal mood, Normal affect Results - Vitals Vitals: Vital Signs - 24 hr 02/25/19 02/25/19 02/25/19 09:00 11:11 11:49 Temperature 36.1 C L Heart Rate 55 L 53 L 79 Respiratory 18 18 18 Rate Blood Pressure 117/61 O2 Saturation 87 L 92 02/25/19 11:53 Temperature Heart Rate 55 L Respiratory 20 Rate Blood Pressure 147/69 H O2 Saturation 91 L Oxygen O2 Source Nasal cannula Oxygen Flow Rate 2 - Labs Labs: Laboratory Tests 02/25/19 02/25/19 02/25/19 10:50 10:50 10:50 WBC 11.2 H RBC 4.14 L Hgb 12.3 Hct 38.7 MCV 93.5 MCH 29.7 MCHC 31.8 L RDW 13.5 Plt Count 207 MPV 10.8 Neut # (Auto) 9.1 H Lymph # (Auto) 1.3 L [place] # (Auto) 0.7 Eos # (Auto) 0.1 Baso # (Auto) 0.0 Absolute Nucleated RBC 0.00 Nucleated RBC % 0.0 Sodium 141 Potassium 3.7 Chloride 102 Carbon Dioxide 28 Anion Gap 11.0 BUN 23 H Creatinine 1.2 H Estimated GFR (MDRD) 43 L Glucose 129 H Lactic Acid Calcium 8.6 Total Bilirubin 0.7 AST 16 ALT 15 Alkaline Phosphatase 64 Troponin I < 0.04 B-Natriuretic Peptide Total Protein 7.3 Albumin 3.3 Globulin 4.0 Albumin/Globulin Ratio 0.8 L Lipase 28 02/25/19 02/25/19 10:50 10:50 WBC RBC Hgb Hct MCV MCH MCHC RDW Plt Count MPV Neut # (Auto) Lymph # (Auto) [place] # (Auto) Eos # (Auto) Baso # (Auto) Absolute Nucleated RBC Nucleated RBC % Sodium Potassium Chloride Carbon Dioxide Anion Gap BUN Creatinine Estimated GFR (MDRD) Glucose Lactic Acid 0.8 Calcium Total Bilirubin AST ALT Alkaline Phosphatase Troponin I B-Natriuretic Peptide 215 H Total Protein Albumin Globulin Albumin/Globulin Ratio Lipase - Rads (name of study) chest Radiology: Prelim report reviewed (Impression: 1. Mild congestive heart failure. Asymmetric right basilar opacity may be from atelectasis or ALIYAH airspace disease possible pneumonia consider follow-up two-view chest x-ray. Left basilar atelectasis.), EMP read indepedently, See rad report Procedures - IVC sono (time) 1235 Bedside IVC sono: IVC measures (cm) (1.71), IVC collapsed c insp (cm) (0.84), Collapsibility index (0.5), Euvolemia PD MEDICAL DECISION MAKING - ED course Complexity details: reviewed old records, reviewed results, re-evaluated patient, considered differential, d/w patient, d/w family ED course: 83-year-old female arrives to the emergency department with tight wheezes and hypoxia on examination. She is administered a DuoNeb treatment with some improvement her chest x-ray is read as possible CHF and I find no evidence of CHF. We did interrogate the inferior vena cava she has a collapse of 50% and BNP is in the low 200 range. The patient did respond to the DuoNeb treatment she was administered dexamethasone as well and she does appear to have infiltrate bilaterally on her chest x-ray. She has elevated white blood cell count and is afebrile. She is administered Rocephin here in the emergency department and admission for pneumonia with hypoxia is sought. Departure - Departure Disposition: [facility] DC/Xfer Clinical Impression: Pneumonia Qualifiers: Pneumonia type: due to unspecified organism Laterality: bilateral Lung location: lower lobe of lung Qualified Code(s): J18.1 - Lobar pneumonia, unspecified organism Condition: Stable
[2019-02-25 10:59] LABS: BASOPHILS % (AUTO) 0.3 %; EOSINOPHILS # (AUTO) 0.1 10^3/uL (0.0-0.7); EOSINOPHILS % (AUTO) 0.5 %; HGB - HEMOGLOBIN 12.3 g/dL (12.0-16.0); LYMPHOCYTES # (AUTO) 1.3 10^3/uL (1.5-3.5); LYMPHOCYTES % (AUTO) 11.5 %; MEAN CORPUSCULAR HEMOGLOBIN 29.7 pg (27.0-31.0); MEAN CORPUSCULAR HGB CONC 31.8 g/dL (32.0-36.0); MEAN CORPUSCULAR VOLUME 93.5 fL (81.0-99.0); MEAN PLATELET VOLUME 10.8 fL (7.9-10.8); MONOCYTES # (AUTO) 0.7 10^3/uL (0.0-1.0); MONOCYTES % (AUTO) 6.1 %; NEUTROPHILS # (AUTO) 9.1 10^3/uL (1.5-6.6); NEUTROPHILS % (AUTO) 81.2 %; PLT - PLATELET COUNT 207 10^3/uL (130-450); RED BLOOD COUNT 4.14 10^6/uL (4.20-5.40); RED CELL DISTRIBUTION WIDTH 13.5 % (12.0-15.0); WHITE BLOOD COUNT 11.2 x10^3/uL (4.8-10.8)
--- NOTE | 2019-02-25 11:09 | XRAY Report ---
Reason: chest pain Procedure Date: 02/25/2019 Accession Number: [id number] / [id number] Procedure: XR - Chest 1 View X-Ray CPT Code: 86610 FULL RESULT: EXAM: CHEST RADIOGRAPHY EXAM DATE: 02/25/2019 10:48 AM. CLINICAL HISTORY: Chest pain. COMPARISON: CHEST 2 VIEW PA/LAT 02/16/2017 9:53 AM. TECHNIQUE: 1 view. FINDINGS: Lungs/Pleura: Mild diffuse interstitial fullness. Elongated bibasilar opacities likely due to atelectasis. Asymmetric right basilar opacity. Mediastinum: Atherosclerotic aortic calcifications. Other: Bilateral shoulder calcific tendinosis. IMPRESSION: 1. Mild congestive heart failure. 2. Asymmetric right basilar opacity may be from atelectasis and airspace disease. Possible pneumonia. Consider follow-up two-view chest x-ray. 3. Left basilar atelectasis. RADIA
[2019-02-25 11:11] LABS: ALBUMIN 3.3 g/dL (3.2-5.5); ALBUMIN/GLOBULIN RATIO 0.8 (1.0-2.2); BILIRUBIN,TOTAL 0.7 mg/dL (0.2-1.0); CALCIUM 8.6 mg/dL (8.5-10.3); CREATININE 1.2 mg/dL (0.4-1.0); TOTAL PROTEIN 7.3 g/dL (6.7-8.2)
[2019-02-25] MEDS ORDERED: cefTRIAXone 1 GM in SODIUM CHLORIDE 0.9% MINIBAG 100 ML IV STA (11:32)
[2019-02-25] MEDS ORDERED: ACETAMINOPHEN 325 MG TABLET PO PRN (13:03)
[2019-02-25] MEDS ORDERED: ZOLPIDEM 5 MG TABLET PO PRN (13:03)
[2019-02-25] MEDS ORDERED: SODIUM CHLORIDE FLUSH 0.9% 10 ML SYRINGE IVP PRN (13:03)
[2019-02-25] MEDS ORDERED: ONDANSETRON 4 MG/2 ML VIAL IVP PRN (13:03)
[2019-02-25] MEDS ORDERED: ALBUTEROL NEB 2.5 MG/3 ML INH PRN (13:09)
[2019-02-25] MEDS ORDERED: IPRATROPIUM/ALBUTEROL 3 ML NEB INH PRN (13:10)
--- NOTE | 2019-02-25 14:05 | HISTORY & PHYSICAL EXAMINATION ---
Chief Complaint - Chief Complaint Chief Complaint: cough, SOB History of Present Illness - Admitted From Admitted From:: ER - History Obtained From History obtained from: pt - History of Present Illness HPI Comment/Other: Ms. Campuzano is 83-yrs-old female with a PMH significant for HTN, CKD, HLD, CHF, COPD, SOB, DM2, osteoarthritis, who present ER complain of cough, shortness of breath. Pt report she has not been well for a week. Then she developed cough with yellowish sputum. In this Wednesday she felt very chill but she denies fever. She denies chest pain, headache, abdominal pain, nausea, vomiting. CXR reveals mild congestive heart failure, asymmetric right basilar opacity, possible pneumonia, and left basilar atelectasis. Lab test reveals pt has 1.2 creatinine, elevated WBC to 11.2. Pt is afebrile at ER. Her sats was down to 87% on room air. pt was admitted for above medical reason. History - Past Medical History Cardiovascular: reports: Congestive heart failure, Hypertension, High cholesterol Respiratory: reports: COPD, Shortness of breath Neuro: reports: None Endocrine/Autoimmune: reports: Type 2 diabetes GI: reports: None PEER SPECIALIST: reports: None : reports: None HEENT: reports: None Psych: reports: None Musculoskeletal: reports: Osteoarthritis Derm: reports: None MRSA Hx?: No - Past Surgical History General: reports: Colonoscopy /PEER SPECIALIST: reports: Hysterectomy Cardiovascular: reports: Coronary stent - Family & Social History Family History Comment/Other: pt is living at [facility]. pt had three children, two sons and one daughter. Daughter is living with her now because her was from three monthsa ago. Social History Notes: pt report she quitted cigarette smoking 10 yrs ago. she denies alcohol and drug abuse. - POLST Patient has POLST: No Meds/Allgy - Home Medications Home Medications: Ambulatory Orders Medication Instructions Recorded Confirmed Aspirin [Aspir 81] 81 mg PO DAILY 01/08/15 02/25/19 Carvedilol [Coreg] 6.25 mg PO BID 01/08/15 02/25/19 Cholecalciferol (Vitamin D3) 2,000 unit PO DAILY 01/08/15 02/25/19 [Vitamin D3] Glipizide [Glipizide ER] 2.5 mg PO DAILY 01/08/15 02/25/19 Levothyroxine [Synthroid] 75 mcg PO QDAC 01/08/15 02/25/19 Rosuvastatin Calcium [Crestor] 30 mg PO DAILY 01/08/15 02/25/19 Amlodipine Besylate 5 mg PO DAILY 01/10/15 02/25/19 SITagliptin [Januvia] 100 mg PO DAILY 07/27/18 02/25/19 Ferrous Sulfate 325 mg ORAL DAILY 01/09/19 02/25/19 Gabapentin 1 cap ORAL TID 01/09/19 02/25/19 - Allergies Allergies/Adverse Reactions: Allergies Allergy/AdvReac Type Severity Reaction Status Date / Time No Known Drug Allergies Allergy Verified 02/25/19 09:03 Review of Systems - Constitutional Constitutional: reports: Fatigue, Chills. denies: Fever, Malaise, Weakness, Poor appetite, Diaphoresis, Night sweats - Eyes Eyes: denies: Pain, Irritation, Amaurosis, Blurred vision, Spots in vision, Field loss, Vision loss, Dipolpia - Ears, Nose & Throat Ears, Nose & Throat: denies: Ear pain, Hearing loss, Hearing aids, Tinnitus, Vertigo, Nasal pain, Nasal discharge, Nosebleeds, Nasal obstruction, Nasal congestion, Postnasal drainage, Sore throat, Hoarseness, Mouth lesions - Cardiovascular Cariovascular: reports: Exertional dyspnea. denies: Irregular heart rate, Palpitations, Chest pain, Edema, Lightheadedness, Syncope, Decr. exercise mervin erance - Respiratory Respiratory: reports: Sputum production, SOB with exertion. denies: Wheezing, Snoring, Hemoptysis, Orthopnea, SOB at rest, Apnea, Stridor, Pleuritic pain - Gastrointestinal Gastrointestinal: denies: Abdominal pain, Abdominal distention, Constipation, Diarrhea, Change in bowel habits, Rectal bleeding, Black stools, Bloody stools, Nausea, Bile emesis, Jarvis blood emesis, Coffee grounds emesis, Reflux/heartburn - Genitourinary Genitourinary: denies: Dysuria, Frequency, Urgency, Hematuria, Incontinence, Flank pain, Nocturia, Urethral discharge - Musculoskeletal Musculoskeletal: denies: Muscle pain, Back pain, Muscle aches, Stiffness, Limited range of motion, Muscle weakness, Gout, Joint pain - Integumentary Integumentary: denies: Rash, Pruritis, Lesions, Dryness, Lumps, Acne, Pigment changes, Nail changes - Neurological Neurological: denies: General weakness, Focal weakness, Headache, Dizziness, Numbness, Memory problems, Pre-existing deficit, Abnormal gait, Seizures, Incoordination, Slurred speech - Psychiatric Psychiatric: denies: Depression, Anxiety, Suicidal, Delusions, Hallucinations, Homicidal - Endocrine Endocrine: denies: Polyuria, Polydypsia, Polyphagia, Intolerance to cold, Intolerance to heat - Hematologic/Lymphatic Hematologic/Lymphatic: denies: Anemia, Bruising, Petechiae, Blood clots, Lymphadenopathy, Bleeding tendencies Exam - Vital Signs Reviewed Vital Signs: Yes Vital Signs: Vital Signs x48h Temp Pulse Resp BP Pulse Ox 02/25/19 13:32 73 19 150/70 H 93 02/25/19 11:53 55 L 20 147/69 H 91 L 02/25/19 11:49 79 18 92 02/25/19 11:11 53 L 18 02/25/19 09:00 36.1 C L 55 L 18 117/61 87 L - Physical Exam General Appearance: positive: No acute distress, Alert. negative: Lethargic Eyes Bilateral: positive: Normal inspection, PERRL, No lid inflammation, Conjunctivae nml ENT: positive: ENT inspection nml, Pharynx nml, No signs of dehydration. negative: Purulent nasal drainage, Pharyngeal erythema, Oral lesions Neck: positive: Nml inspection, Thyroid nml, No JVD, Trachea midline. negative: Thyromegaly, Lymphadenopathy (R), Lymphadenopathy (L), Stiff neck, Swelling/bruising, Tracheal deviation Respiratory: positive: Chest non-tender, No respiratory distress. negative: Wheezes, Rales, Rhonchi Cardiovascular: positive: Regular rate & rhythm, No murmur, No gallop. negative: Irregularly irregular, Extrasystoles, Tachycardia, Bradycardia, JVD present, Systolic murmur, Diastolic murmur Peripheral Pulses: positive: 2+ Abdomen: positive: Non-tender, No organomegaly, Nml bowel sounds, No distention. negative: Tenderness, Guarding, Rebound Back: positive: Nml inspection. negative: CVA tenderness (R), CVA tenderness (L) Skin: positive: Color nml, No rash, Warm, Dry. negative: Cyanosis, Diaphoresis, Pallor Extremities: positive: Non-tender, Nml appearance. negative: Calf tenderness, Shashi's sign/cords Neurologic/Psychiatric: positive: Oriented x3, Sensation nml, Mood/affect nml. negative: Weakness, Sensory loss, Facial droop, Slurred/abnml speech, Depressed mood/affect Sepsis Event Note (H) - Evaluation Current Stage of Sepsis: Ruled out Conclusion/Plan - Problem List (1) Pneumonia Conclusion/Plan: pt present cough with sputum, CXR indicate pneumonia antibiotics for pt sputum culture blood culture Qualifiers: Pneumonia type: due to unspecified organism Laterality: bilateral Lung location: lower lobe of lung Qualified Code(s): J18.1 - Lobar pneumonia, unspecified organism (2) Respiratory failure with hypoxia Conclusion/Plan: pt has 87% sat on room air, pt has pneumonia and hx of COPD treatment of underline of pneumonia and COPD O2 supplement as needed (3) DM2 (diabetes mellitus, type 2) Conclusion/Plan: pt take meds not insulin at home. glucose is 129 now slide scale, check A1C, hypoglycemia (4) HTN (hypertension) Conclusion/Plan: stable, will reconcile home BP meds (5) CKD (chronic kidney disease) stage 3, GFR 30-59 ml/min Conclusion/Plan: pt has hx of CKD stage 3, today GFR 43. hydration to pt, avoid nephrotoxical agent, daily lab monitor (6) COPD (chronic obstructive pulmonary disease) Conclusion/Plan: pt has no home INH. today pt has 87%sat on room air Albuterol and Duoneb PRN (7) CHF (congestive heart failure), NYHA class I Conclusion/Plan: pt has hx of CHF. in 11/15 ECHO reveals moderate right ventricle high abnormal pressure. pt seems to have right heart failure, diastolic precaution IVF. CXR did not reveals pleural effusion or pulmonary edema continue home meds, Coreg, Aspirin. closely monitor pt (8) Full code status Conclusion/Plan: pt request full code - Lab Results Fish Bones: 02/25/19 10:50 02/25/19 10:50 Core Measures - Anticipated LOS I expect patient to be DC'd or transferred within 96 hours.: Yes - DVT/VTE - Prophylaxis VTE/DVT Device ordered at admit?: Yes VTE/DVT Prophylaxis med ordered at admit?: Yes
[2019-02-25 14:14] LABS: HEMOGLOBIN A1C 0.68 g/dL; HEMOGLOBIN A1C % 6.6 % (4.6-6.2)
[2019-02-25] MEDS ORDERED: AZITHROMYCIN INJ 500 MG in SODIUM CHLORIDE 0.9% 250 ML IV SCH (16:00)
[2019-02-25] MEDS: SODIUM CHLORIDE FLUSH 0.9% 10 ML SYRINGE IVP SCH (16:07)
[2019-02-25] MEDS: SODIUM CHLORIDE 0.9% 500 ML IV PRN (16:07)
[2019-02-25] MEDS: INSULIN ASPART 300 UNIT/3 ML PEN SUBQ SCH ×2 (19:19→21:05)
[2019-02-25] MEDS: FAMOTIDINE 20 MG TABLET PO SCH (21:03)
[2019-02-25] MEDS: CARVEDILOL 3.125 MG TABLET PO SCH (21:03)
[2019-02-25] MEDS: guaiFENesin 600 MG TABLET PO SCH (21:03)
[2019-02-25] MEDS: GABAPENTIN 300 MG CAPSULE PO SCH (21:58)
[2019-02-25] MEDS: CEFEPIME 1 GM in SODIUM CHLORIDE 0.9% MINIBAG 100 ML IV SCH (21:58)
[2019-02-26] MEDS: SODIUM CHLORIDE FLUSH 0.9% 10 ML SYRINGE IVP SCH ×3 (04:38→17:07)
[2019-02-26 06:29] LABS: BASOPHILS % (AUTO) 0.1 %; EOSINOPHILS # (AUTO) 0.1 10^3/uL (0.0-0.7); EOSINOPHILS % (AUTO) 1.7 %; HGB - HEMOGLOBIN 11.9 g/dL (12.0-16.0); LYMPHOCYTES # (AUTO) 0.8 10^3/uL (1.5-3.5); LYMPHOCYTES % (AUTO) 11.6 %; MEAN CORPUSCULAR HEMOGLOBIN 29.5 pg (27.0-31.0); MEAN CORPUSCULAR HGB CONC 32.2 g/dL (32.0-36.0); MEAN CORPUSCULAR VOLUME 91.6 fL (81.0-99.0); MEAN PLATELET VOLUME 11.5 fL (7.9-10.8); MONOCYTES # (AUTO) 0.3 10^3/uL (0.0-1.0); MONOCYTES % (AUTO) 3.8 %; NEUTROPHILS # (AUTO) 5.7 10^3/uL (1.5-6.6); NEUTROPHILS % (AUTO) 82.5 %; PLT - PLATELET COUNT 200 10^3/uL (130-450); RED BLOOD COUNT 4.04 10^6/uL (4.20-5.40); RED CELL DISTRIBUTION WIDTH 13.2 % (12.0-15.0); WHITE BLOOD COUNT 6.9 x10^3/uL (4.8-10.8)
[2019-02-26] MEDS: CEFEPIME 1 GM in SODIUM CHLORIDE 0.9% MINIBAG 100 ML IV SCH ×3 (06:32→21:33)
[2019-02-26] MEDS: GABAPENTIN 300 MG CAPSULE PO SCH ×3 (06:34→21:32)
[2019-02-26] MEDS: LEVOTHYROXINE 25 MCG TABLET PO SCH (06:34)
[2019-02-26 06:37] LABS: CALCIUM 8.4 mg/dL (8.5-10.3); CREATININE 0.9 mg/dL (0.4-1.0); MAGNESIUM 2.3 mg/dL (1.7-2.8)
[2019-02-26] MEDS ORDERED: cefTRIAXone 1 GM in SODIUM CHLORIDE 0.9% MINIBAG 100 ML IV SCH (09:00)
[2019-02-26] MEDS ORDERED: cefTRIAXone 1 GM VIAL IVP SCH (09:00)
[2019-02-26] MEDS: INSULIN ASPART 300 UNIT/3 ML PEN SUBQ SCH ×4 (09:05→21:32)
[2019-02-26] MEDS: amLODIPine 5 MG TABLET PO SCH (09:19)
[2019-02-26] MEDS: FAMOTIDINE 20 MG TABLET PO SCH ×2 (09:19→21:32)
[2019-02-26] MEDS: CARVEDILOL 3.125 MG TABLET PO SCH ×2 (09:20→21:32)
[2019-02-26] MEDS: guaiFENesin 600 MG TABLET PO SCH ×2 (09:20→21:32)
[2019-02-26] MEDS: ASPIRIN EC 81 MG TABLET PO SCH (09:20)
[2019-02-26] MEDS: POLYETHYLENE GLYCOL 3350 17 GM PACKET PO SCH (09:24)
[2019-02-26] MEDS: ENOXAPARIN 40 MG/0.4 ML SYRINGE SUBQ SCH (09:40)
[2019-02-26] MEDS: IPRATROPIUM/ALBUTEROL 3 ML NEB INH SCH ×3 (11:33→20:18)
--- NOTE | 2019-02-26 16:37 | PROVIDER PROGRESS NOTE ---
Subjective - Subjective Pt reports feeling: Improved Subjective: pt report she felt better, breath better. but pt still has cough and mild shortness of breath. pt denies fever,chill, chest pain. Current Medications - Current Medications Current Medications: Active Medications Acetaminophen (Tylenol) 650 mg PO Q4HR PRN PRN Reason: Pain 1 to 4 Albuterol () 2.5 mg INH RTQ4H PRN PRN Reason: Wheezing Albuterol/Ipratropium (Duoneb) 3 ml INH Q4HR PRN PRN Reason: Wheezing Last Admin: 02/26/19 07:37 Dose: 3 ml Albuterol/Ipratropium (Duoneb) 3 ml INH RTQID [facility] Last Admin: 02/26/19 15:35 Dose: 3 ml Amlodipine Besylate (Norvasc) 5 mg PO DAILY [facility] Last Admin: 02/26/19 09:19 Dose: 5 mg Aspirin (Ecotrin) 81 mg PO DAILY [facility] Last Admin: 02/26/19 09:20 Dose: 81 mg Carvedilol (Coreg) 6.25 mg PO BID [facility] Last Admin: 02/26/19 09:20 Dose: 6.25 mg Enoxaparin Sodium (Lovenox) 40 mg SUBQ DAILY [facility] Last Admin: 02/26/19 09:40 Dose: 40 mg Famotidine (Pepcid) 20 mg PO BID [facility] Last Admin: 02/26/19 09:19 Dose: 20 mg Gabapentin (Neurontin) 300 mg PO TID [facility] Last Admin: 02/26/19 14:31 Dose: 300 mg Guaifenesin (Mucinex) 600 mg PO BID [facility] Last Admin: 02/26/19 09:20 Dose: 600 mg Sodium Chloride (Normal Saline 0.9%) 500 mls @ 0 mls/hr IV Q24H PRN PRN Reason: TKO RATE Last Infusion: 02/26/19 15:30 Dose: 20 mls/hr Cefepime HCl 1 gm/ Sodium (Chloride) 100 mls @ 200 mls/hr IV TID [facility] Last Infusion: 02/26/19 14:56 Dose: Infused Insulin Aspart (Novolog) 1 - 9 unit SUBQ 0800,1200,1700,2100 [facility]; Protocol Last Admin: 02/26/19 12:35 Dose: 3 unit Levothyroxine Sodium (Synthroid) 75 mcg PO QDAC [facility] Last Admin: 02/26/19 06:34 Dose: 75 mcg Ondansetron HCl (Zofran Inj) 4 mg IVP Q6HR PRN PRN Reason: Nausea / Vomiting Polyethylene Glycol (Miralax) 17 gm PO DAILY [facility] Last Admin: 02/26/19 09:24 Dose: 17 gm Sodium Chloride (Normal Saline Flush 0.9%) 10 ml IVP PRN PRN PRN Reason: NEEDED PER PROVIDER ORDERS Sodium Chloride (Normal Saline Flush 0.9%) 10 ml IVP 0100,0900,1700 [facility] Last Admin: 02/26/19 09:24 Dose: Not Given Zolpidem Tartrate (Ambien) 5 mg PO QPM PRN PRN Reason: Insomnia Aspirin [Aspir 81] 81 mg PO DAILY 01/08/15 Carvedilol [Coreg] 6.25 mg PO BID 01/08/15 Cholecalciferol (Vitamin D3) [Vitamin D3] 2,000 unit PO DAILY 01/08/15 Glipizide [Glipizide ER] 2.5 mg PO DAILY 01/08/15 Levothyroxine [Synthroid] 75 mcg PO QDAC 01/08/15 Rosuvastatin Calcium [Crestor] 30 mg PO DAILY 01/08/15 Amlodipine Besylate 5 mg PO DAILY 01/10/15 SITagliptin [Januvia] 100 mg PO DAILY 07/27/18 Ferrous Sulfate 325 mg ORAL DAILY 01/09/19 Gabapentin 1 cap ORAL TID 01/09/19 Objective - Vital Signs/Intake & Output Reviewed Vital Signs: Yes Vital Signs: Vital Signs x48h Temp Pulse Pulse Resp BP Pulse Ox 02/26/19 15:55 36.6 C 53 L 18 130/76 94 02/26/19 15:35 68 20 02/26/19 11:34 76 20 02/26/19 10:00 36.9 C 63 18 150/58 H 90 L Intake & Output: Intake & Output 02/23/19 02/24/19 02/25/19 02/26/19 23:59 23:59 23:59 23:59 Intake Total 326 1039.333 Balance 326 1039.333 - Objective General Appearance: positive: No acute distress, Alert. negative: Lethargic Eyes Bilateral: positive: Normal inspection, PERRL, No lid inflammation, Conjunctivae nml ENT: positive: ENT inspection nml, Pharynx nml, No signs of dehydration. negative: Purulent nasal drainage, Pharyngeal erythema, Oral lesions Neck: positive: Nml inspection, Thyroid nml, No JVD, Trachea midline. negative: Thyromegaly, Lymphadenopathy (R), Lymphadenopathy (L), Stiff neck, Swelling/bruising, Tracheal deviation Respiratory: positive: Chest non-tender, No respiratory distress. negative: Wheezes, Rales, Rhonchi Cardiovascular: positive: Regular rate & rhythm, No murmur, No gallop. negative: Irregularly irregular, Extrasystoles, Tachycardia, Bradycardia, JVD present, Systolic murmur, Diastolic murmur Peripheral Pulses: 2+ Radial (R), 2+ Radial (L), 2+ Dorsalis pedis (R), 2+ Dorsalis pedis (L) Abdomen: positive: Non-tender, No organomegaly, Nml bowel sounds, No distention. negative: Tenderness, Guarding, Rebound Back: positive: Nml inspection. negative: CVA tenderness (R), CVA tenderness (L) Skin: positive: Color nml, No rash, Warm, Dry. negative: Cyanosis, Diaphoresis, Pallor Extremities: positive: Non-tender, Nml appearance. negative: Calf tenderness, Shashi's sign/cords Neurologic/Psychiatric: positive: Oriented x3, Motor nml, Sensation nml, Mood/affect nml. negative: Weakness, Sensory loss, Facial droop, Slurred/abnml speech, Depressed mood/affect - Lab Results Fish Bones: 02/26/19 06:10 02/26/19 06:10 Other Labs: Lab Results x24hrs 02/26/19 02/26/19 02/26/19 Range/Units 16:31 11:36 07:47 WBC (4.8-10.8) x10^3/uL RBC (4.20-5.40) 10^6/uL Hgb (12.0-16.0) g/dL Hct (37.0-47.0) % MCV (81.0-99.0) fL MCH (27.0-31.0) pg MCHC (32.0-36.0) g/dL RDW (12.0-15.0) % Plt Count (130-450) 10^3/uL MPV (7.9-10.8) fL Neut # (Auto) (1.5-6.6) 10^3/uL Lymph # (Auto) (1.5-3.5) 10^3/uL [place] # (Auto) (0.0-1.0) 10^3/uL Eos # (Auto) (0.0-0.7) 10^3/uL Baso # (Auto) (0.0-0.1) 10^3/uL Absolute Nucleated RBC x10^3/uL Nucleated RBC % /100WBC Sodium (135-145) mmol/L Potassium (3.5-5.0) mmol/L Chloride (101-111) mmol/L Carbon Dioxide (21-32) mmol/L Anion Gap (6-13) BUN (6-20) mg/dL Creatinine (0.4-1.0) mg/dL Estimated GFR (MDRD) (>89) Glucose (70-100) mg/dL POC Whole Bld Glucose 165 H 213 H 174 H (70 - 100) mg/dL Calcium (8.5-10.3) mg/dL Magnesium (1.7-2.8) mg/dL Troponin I (<0.49) ng/mL TSH (0.34-5.60) uIU/mL 02/26/19 02/26/19 02/26/19 Range/Units 06:10 06:10 06:10 WBC 6.9 (4.8-10.8) x10^3/uL RBC 4.04 L (4.20-5.40) 10^6/uL Hgb 11.9 L (12.0-16.0) g/dL Hct 37.0 (37.0-47.0) % MCV 91.6 (81.0-99.0) fL MCH 29.5 (27.0-31.0) pg MCHC 32.2 (32.0-36.0) g/dL RDW 13.2 (12.0-15.0) % Plt Count 200 (130-450) 10^3/uL MPV 11.5 H (7.9-10.8) fL Neut # (Auto) 5.7 (1.5-6.6) 10^3/uL Lymph # (Auto) 0.8 L (1.5-3.5) 10^3/uL [place] # (Auto) 0.3 (0.0-1.0) 10^3/uL Eos # (Auto) 0.1 (0.0-0.7) 10^3/uL Baso # (Auto) 0.0 (0.0-0.1) 10^3/uL Absolute Nucleated RBC 0.00 x10^3/uL Nucleated RBC % 0.0 /100WBC Sodium 142 (135-145) mmol/L Potassium 4.3 (3.5-5.0) mmol/L Chloride 104 (101-111) mmol/L Carbon Dioxide 27 (21-32) mmol/L Anion Gap 11.0 (6-13) BUN 27 H (6-20) mg/dL Creatinine 0.9 (0.4-1.0) mg/dL Estimated GFR (MDRD) 60 L (>89) Glucose 193 H (70-100) mg/dL POC Whole Bld Glucose (70 - 100) mg/dL Calcium 8.4 L (8.5-10.3) mg/dL Magnesium 2.3 (1.7-2.8) mg/dL Troponin I (<0.49) ng/mL TSH 1.29 (0.34-5.60) uIU/mL 02/25/19 02/25/19 02/25/19 Range/Units 21:02 16:40 16:33 WBC (4.8-10.8) x10^3/uL RBC (4.20-5.40) 10^6/uL Hgb (12.0-16.0) g/dL Hct (37.0-47.0) % MCV (81.0-99.0) fL MCH (27.0-31.0) pg MCHC (32.0-36.0) g/dL RDW (12.0-15.0) % Plt Count (130-450) 10^3/uL MPV (7.9-10.8) fL Neut # (Auto) (1.5-6.6) 10^3/uL Lymph # (Auto) (1.5-3.5) 10^3/uL [place] # (Auto) (0.0-1.0) 10^3/uL Eos # (Auto) (0.0-0.7) 10^3/uL Baso # (Auto) (0.0-0.1) 10^3/uL Absolute Nucleated RBC x10^3/uL Nucleated RBC % /100WBC Sodium (135-145) mmol/L Potassium (3.5-5.0) mmol/L Chloride (101-111) mmol/L Carbon Dioxide (21-32) mmol/L Anion Gap (6-13) BUN (6-20) mg/dL Creatinine (0.4-1.0) mg/dL Estimated GFR (MDRD) (>89) Glucose (70-100) mg/dL POC Whole Bld Glucose 263 H 276 H (70 - 100) mg/dL Calcium (8.5-10.3) mg/dL Magnesium (1.7-2.8) mg/dL Troponin I < 0.04 (<0.49) ng/mL TSH (0.34-5.60) uIU/mL ABX Reporting Has patient been on IV antibiotics over the past 48 hours?: Yes Sepsis Event Note (H) - Evaluation Current Stage of Sepsis: Ruled out Assessment/Plan - Problem List (1) Pneumonia Impression: 02/26 pt's WBC is normal. pt report her breath is better. 94% sats on 2 liter of O2. but pt present cough with pulmonary congestion continue antibiotics Cefepime sputum is pending blood culture is negative pt present cough with sputum, CXR indicate pneumonia antibiotics for pt sputum culture blood culture (2) Respiratory failure with hypoxia Conclusion/Plan: 02/26 94% sats on 2 liter of O2 treat underline of pneumonia and COPD pt has 87% sat on room air, pt has pneumonia and hx of COPD treatment of underline of pneumonia and COPD O2 supplement as needed (3) DM2 (diabetes mellitus, type 2) Conclusion/Plan: pt take meds not insulin at home. glucose is 129 now slide scale, check A1C, hypoglycemia (4) HTN (hypertension) Conclusion/Plan: stable, will reconcile home BP meds (5) CKD (chronic kidney disease) stage 3, GFR 30-59 ml/min Conclusion/Plan: pt has hx of CKD stage 3, today GFR 43. hydration to pt, avoid nephrotoxical a gent, daily lab monitor (6) COPD (chronic obstructive pulmonary disease) Conclusion/Plan: pt has no home INH. today pt has 87%sat on room air Albuterol and Duoneb PRN (7) CHF (congestive heart failure), NYHA class I Conclusion/Plan: pt has hx of CHF. in 11/15 ECHO reveals moderate right ventricle high abnormal pressure. pt seems to have right heart failure, diastolic precaution IVF. CXR did not reveals pleural effusion or pulmonary edema continue home meds, Coreg, Aspirin. closely monitor pt Qualifiers: Pneumonia type: due to unspecified organism Laterality: bilateral Lung location: lower lobe of lung Qualified Code(s): J18.1 - Lobar pneumonia, unspecified organism
[2019-02-26] MEDS: SODIUM CHLORIDE 0.9% 500 ML IV PRN (22:15)
[2019-02-27] MEDS: SODIUM CHLORIDE FLUSH 0.9% 10 ML SYRINGE IVP SCH ×4 (02:06→23:47)
[2019-02-27] MEDS: CEFEPIME 1 GM in SODIUM CHLORIDE 0.9% MINIBAG 100 ML IV SCH ×3 (06:10→21:27)
[2019-02-27] MEDS: LEVOTHYROXINE 25 MCG TABLET PO SCH (06:11)
[2019-02-27] MEDS: GABAPENTIN 300 MG CAPSULE PO SCH ×3 (06:12→21:27)
[2019-02-27 06:47] LABS: BASOPHILS % (AUTO) 0.2 %; EOSINOPHILS % (AUTO) 0.1 %; HGB - HEMOGLOBIN 12.1 g/dL (12.0-16.0); LYMPHOCYTES # (AUTO) 1.8 10^3/uL (1.5-3.5); LYMPHOCYTES % (AUTO) 13.7 %; MEAN CORPUSCULAR HEMOGLOBIN 29.1 pg (27.0-31.0); MEAN CORPUSCULAR HGB CONC 31.7 g/dL (32.0-36.0); MEAN CORPUSCULAR VOLUME 91.8 fL (81.0-99.0); MEAN PLATELET VOLUME 11.6 fL (7.9-10.8); MONOCYTES # (AUTO) 0.7 10^3/uL (0.0-1.0); MONOCYTES % (AUTO) 5.5 %; NEUTROPHILS # (AUTO) 10.2 10^3/uL (1.5-6.6); PLT - PLATELET COUNT 259 10^3/uL (130-450); RED BLOOD COUNT 4.16 10^6/uL (4.20-5.40); RED CELL DISTRIBUTION WIDTH 13.3 % (12.0-15.0); WHITE BLOOD COUNT 12.8 x10^3/uL (4.8-10.8)
[2019-02-27 07:11] LABS: CALCIUM 8.3 mg/dL (8.5-10.3)
[2019-02-27] MEDS: INSULIN ASPART 300 UNIT/3 ML PEN SUBQ SCH ×4 (07:28→21:26)
[2019-02-27] MEDS: CARVEDILOL 3.125 MG TABLET PO SCH ×2 (08:01→21:26)
[2019-02-27] MEDS: ASPIRIN EC 81 MG TABLET PO SCH (08:01)
[2019-02-27] MEDS: amLODIPine 5 MG TABLET PO SCH (08:01)
[2019-02-27] MEDS: ENOXAPARIN 40 MG/0.4 ML SYRINGE SUBQ SCH (08:02)
[2019-02-27] MEDS: FAMOTIDINE 20 MG TABLET PO SCH ×2 (08:02→21:26)
[2019-02-27] MEDS: POLYETHYLENE GLYCOL 3350 17 GM PACKET PO SCH (08:02)
[2019-02-27] MEDS: guaiFENesin 600 MG TABLET PO SCH ×2 (08:02→21:26)
[2019-02-27] MEDS: IPRATROPIUM/ALBUTEROL 3 ML NEB INH SCH ×4 (08:10→17:52)
[2019-02-27] MEDS: VANCOMYCIN INJ 1 GM in SODIUM CHLORIDE 0.9% 250 ML IV SCH (08:51)
--- NOTE | 2019-02-27 16:00 | PROVIDER PROGRESS NOTE ---
Subjective - Prog Note Date Prog Note Date: 02/27/19 - Subjective Pt reports feeling: Improved Subjective: pt report she still has cough and felt tired. pt denies fever, chill, shortness of breath, chest pain. Current Medications - Current Medications Current Medications: Active Medications Acetaminophen (Tylenol) 650 mg PO Q4HR PRN PRN Reason: Pain 1 to 4 Albuterol () 2.5 mg INH RTQ4H PRN PRN Reason: Wheezing Albuterol/Ipratropium (Duoneb) 3 ml INH Q4HR PRN PRN Reason: Wheezing Last Admin: 02/26/19 07:37 Dose: 3 ml Albuterol/Ipratropium (Duoneb) 3 ml INH RTQID [facility] Last Admin: 02/27/19 15:07 Dose: 3 ml Amlodipine Besylate (Norvasc) 5 mg PO DAILY [facility] Last Admin: 02/27/19 08:01 Dose: 5 mg Aspirin (Ecotrin) 81 mg PO DAILY [facility] Last Admin: 02/27/19 08:01 Dose: 81 mg Carvedilol (Coreg) 6.25 mg PO BID [facility] Last Admin: 02/27/19 08:01 Dose: 6.25 mg Enoxaparin Sodium (Lovenox) 40 mg SUBQ DAILY [facility] Last Admin: 02/27/19 08:02 Dose: 40 mg Famotidine (Pepcid) 20 mg PO BID [facility] Last Admin: 02/27/19 08:02 Dose: 20 mg Gabapentin (Neurontin) 300 mg PO TID [facility] Last Admin: 02/27/19 13:56 Dose: 300 mg Guaifenesin (Mucinex) 600 mg PO BID [facility] Last Admin: 02/27/19 08:02 Dose: 600 mg Sodium Chloride (Normal Saline 0.9%) 500 mls @ 0 mls/hr IV Q24H PRN PRN Reason: TKO RATE Last Admin: 02/26/19 22:15 Dose: 20 mls/hr Cefepime HCl 1 gm/ Sodium (Chloride) 100 mls @ 200 mls/hr IV TID [facility] Last Infusion: 02/27/19 14:41 Dose: Infused Vancomycin HCl 1 gm/ Sodium (Chloride) 250 mls @ 167 mls/hr IV Q18H [facility] Last Infusion: 02/27/19 11:13 Dose: Infused Insulin Aspart (Novolog) 1 - 9 unit SUBQ 0800,1200,1700,2100 [facility]; Protocol Last Admin: 02/27/19 11:51 Dose: 1 unit Levothyroxine Sodium (Synthroid) 75 mcg PO QDAC [facility] Last Admin: 02/27/19 06:11 Dose: 75 mcg Ondansetron HCl (Zofran Inj) 4 mg IVP Q6HR PRN PRN Reason: Nausea / Vomiting Polyethylene Glycol (Miralax) 17 gm PO DAILY [facility] Last Admin: 02/27/19 08:02 Dose: 17 gm Sodium Chloride (Normal Saline Flush 0.9%) 10 ml IVP PRN PRN PRN Reason: NEEDED PER PROVIDER ORDERS Sodium Chloride (Normal Saline Flush 0.9%) 10 ml IVP 0100,0900,1700 [facility] Last Admin: 02/27/19 08:02 Dose: Not Given Zolpidem Tartrate (Ambien) 5 mg PO QPM PRN PRN Reason: Insomnia Aspirin [Aspir 81] 81 mg PO DAILY 01/08/15 Carvedilol [Coreg] 6.25 mg PO BID 01/08/15 Cholecalciferol (Vitamin D3) [Vitamin D3] 2,000 unit PO DAILY 01/08/15 Glipizide [Glipizide ER] 2.5 mg PO DAILY 01/08/15 Levothyroxine [Synthroid] 75 mcg PO QDAC 01/08/15 Rosuvastatin Calcium [Crestor] 30 mg PO DAILY 01/08/15 Amlodipine Besylate 5 mg PO DAILY 01/10/15 SITagliptin [Januvia] 100 mg PO DAILY 07/27/18 Ferrous Sulfate 325 mg ORAL DAILY 01/09/19 Gabapentin 1 cap ORAL TID 01/09/19 Objective - Vital Signs/Intake & Output Reviewed Vital Signs: Yes Vital Signs: Vital Signs x48h Temp Pulse Pulse Resp BP Pulse Ox 02/27/19 15:08 70 16 02/27/19 11:47 74 18 02/27/19 08:12 70 18 02/27/19 08:00 36.6 C 74 18 172/71 H 96 Intake & Output: Intake & Output 02/24/19 02/25/19 02/26/19 02/27/19 23:59 23:59 23:59 23:59 Intake Total 326 1746.068 8954 Balance 326 7754.958 2953 - Objective General Appearance: positive: No acute distress, Alert. negative: Lethargic Eyes Bilateral: positive: Normal inspection, PERRL, No lid inflammation, Conjunctivae nml ENT: positive: ENT inspection nml, Pharynx nml. negative: Purulent nasal drainage, Pharyngeal erythema, Oral lesions Neck: positive: Nml inspection, Thyroid nml, No JVD, Trachea midline. negative: Thyromegaly, Stiff neck, Swelling/bruising, Tracheal deviation Respiratory: positive: Chest non-tender, No respiratory distress. negative: Wheezes, Rales, Rhonchi Cardiovascular: positive: Regular rate & rhythm, No murmur, No gallop, Irregularly irregular. negative: Extrasystoles, Tachycardia, Bradycardia, JVD present, Systolic murmur, Diastolic murmur Peripheral Pulses: 2+ Radial (R), 2+ Radial (L), 2+ Dorsalis pedis (R), 2+ Dorsalis pedis (L) Abdomen: positive: Non-tender, No organomegaly, Nml bowel sounds, No distention. negative: Tenderness, Guarding, Rebound Back: positive: Nml inspection. negative: CVA tenderness (R), CVA tenderness (L) Skin: positive: Color nml, No rash, Warm, Dry. negative: Cyanosis, Diaphoresis, Pallor Extremities: positive: Non-tender, Nml appearance. negative: Calf tenderness, Joint swelling, Shashi's sign/cords Neurologic/Psychiatric: positive: Oriented x3, Sensation nml, Mood/affect nml. negative: Weakness, Sensory loss, Facial droop, Slurred/abnml speech, Depressed mood/affect - Lab Results Fish Bones: 02/27/19 05:35 02/27/19 05:35 Other Labs: Lab Results x24hrs 02/27/19 02/27/19 02/27/19 Range/Units 11:30 07:28 05:35 WBC (4.8-10.8) x10^3/uL RBC (4.20-5.40) 10^6/uL Hgb (12.0-16.0) g/dL Hct (37.0-47.0) % MCV (81.0-99.0) fL MCH (27.0-31.0) pg MCHC (32.0-36.0) g/dL RDW (12.0-15.0) % Plt Count (130-450) 10^3/uL MPV (7.9-10.8) fL Neut # (Auto) (1.5-6.6) 10^3/uL Lymph # (Auto) (1.5-3.5) 10^3/uL [place] # (Auto) (0.0-1.0) 10^3/uL Eos # (Auto) (0.0-0.7) 10^3/uL Baso # (Auto) (0.0-0.1) 10^3/uL Absolute Nucleated RBC x10^3/uL Nucleated RBC % /100WBC Sodium 142 (135-145) mmol/L Potassium 4.1 (3.5-5.0) mmol/L Chloride 104 (101-111) mmol/L Carbon Dioxide 25 (21-32) mmol/L Anion Gap 13.0 (6-13) BUN 31 H (6-20) mg/dL Creatinine 1.0 (0.4-1.0) mg/dL Estimated GFR (MDRD) 53 L (>89) Glucose 126 H (70-100) mg/dL POC Whole Bld Glucose 166 H 127 H (70 - 100) mg/dL Calcium 8.3 L (8.5-10.3) mg/dL 02/27/19 02/26/19 02/26/19 Range/Units 05:35 21:04 16:31 WBC 12.8 H (4.8-10.8) x10^3/uL RBC 4.16 L (4.20-5.40) 10^6/uL Hgb 12.1 (12.0-16.0) g/dL Hct 38.2 (37.0-47.0) % MCV 91.8 (81.0-99.0) fL MCH 29.1 (27.0-31.0) pg MCHC 31.7 L (32.0-36.0) g/dL RDW 13.3 (12.0-15.0) % Plt Count 259 (130-450) 10^3/uL MPV 11.6 H (7.9-10.8) fL Neut # (Auto) 10.2 H (1.5-6.6) 10^3/uL Lymph # (Auto) 1.8 (1.5-3.5) 10^3/uL [place] # (Auto) 0.7 (0.0-1.0) 10^3/uL Eos # (Auto) 0.0 (0.0-0.7) 10^3/uL Baso # (Auto) 0.0 (0.0-0.1) 10^3/uL Absolute Nucleated RBC 0.00 x10^3/uL Nucleated RBC % 0.0 /100WBC Sodium (135-145) mmol/L Potassium (3.5-5.0) mmol/L Chloride (101-111) mmol/L Carbon Dioxide (21-32) mmol/L Anion Gap (6-13) BUN (6-20) mg/dL Creatinine (0.4-1.0) mg/dL Estimated GFR (MDRD) (>89) Glucose (70-100) mg/dL POC Whole Bld Glucose 220 H 165 H (70 - 100) mg/dL Calcium (8.5-10.3) mg/dL ABX Reporting Has patient been on IV antibiotics over the past 48 hours?: Yes Sepsis Event Note (H) - Evaluation Current Stage of Sepsis: Ruled out Assessment/Plan - Problem List (1) Pneumonia Impression: 02/27 pt's WBC is significant going up. pt had one time steroid on ER, it may c ontribute. pt still present cough and weakness. pt still need O2 support. add vancomycin continue Cefepime supplement O2 as needed continue breath treatment 02/26 pt's WBC is normal. pt report her breath is better. 94% sats on 2 liter of O2. but pt present cough with pulmonary congestion continue antibiotics Cefepime sputum is pending blood culture is negative pt present cough with sputum, CXR indicate pneumonia antibiotics for pt sputum culture blood culture (2) Respiratory failure with hypoxia Conclusion/Plan: 02/27 continue treat underline of pneumonia and COPD 02/26 94% sats on 2 liter of O2 treat underline of pneumonia and COPD pt has 87% sat on room air, pt has pneumonia and hx of COPD treatment of underline of pneumonia and COPD O2 supplement as needed (3) DM2 (diabetes mellitus, type 2) Conclusion/Plan: pt take meds not insulin at home. glucose is 129 now slide scale, check A1C, hypoglycemia (4) HTN (hypertension) Conclusion/Plan: stable, will reconcile home BP meds (5) CKD (chronic kidney disease) stage 3, GFR 30-59 ml/min Conclusion/Plan: 02/27 pt has increase BUN, and decrease GFR, slight hydration with NS IVF lab monitor pt has hx of CKD stage 3, today GFR 43. hydration to pt, avoid nephrotoxical agent, daily lab monitor (6) COPD (chronic obstructive pulmonary disease) Conclusion/Plan: pt has no home INH. today pt has 87%sat on room air Albuterol and Duoneb PRN (7) CHF (congestive heart failure), NYHA class I Conclusion/Plan: pt has hx of CHF. in 11/15 ECHO reveals moderate right ventricle high abnormal pressure. pt seems to have right heart failure, diastolic precaution IVF. CXR did not reveals pleural effusion or pulmonary edema continue home meds, Coreg, Aspirin. closely monitor pt Qualifiers: Pneumonia type: due to unspecified organism Laterality: bilateral Lung location: lower lobe of lung Qualified Code(s): J18.1 - Lobar pneumonia, unspecified organism
[2019-02-27] MEDS ORDERED: SODIUM CHLORIDE 0.9% 1,000 ML IV SCH (17:00)
[2019-02-28] MEDS: VANCOMYCIN INJ 1 GM in SODIUM CHLORIDE 0.9% 250 ML IV SCH (03:27)
[2019-02-28 05:07] LABS: BASOPHILS % (AUTO) 0.2 %; EOSINOPHILS # (AUTO) 0.1 10^3/uL (0.0-0.7); EOSINOPHILS % (AUTO) 0.9 %; HGB - HEMOGLOBIN 11.3 g/dL (12.0-16.0); LYMPHOCYTES # (AUTO) 1.5 10^3/uL (1.5-3.5); LYMPHOCYTES % (AUTO) 15.9 %; MEAN CORPUSCULAR HGB CONC 31.8 g/dL (32.0-36.0); MEAN CORPUSCULAR VOLUME 91.3 fL (81.0-99.0); MEAN PLATELET VOLUME 10.9 fL (7.9-10.8); MONOCYTES # (AUTO) 0.6 10^3/uL (0.0-1.0); MONOCYTES % (AUTO) 6.7 %; NEUTROPHILS # (AUTO) 7.2 10^3/uL (1.5-6.6); NEUTROPHILS % (AUTO) 75.8 %; PLT - PLATELET COUNT 224 10^3/uL (130-450); RED BLOOD COUNT 3.89 10^6/uL (4.20-5.40); RED CELL DISTRIBUTION WIDTH 13.3 % (12.0-15.0); WHITE BLOOD COUNT 9.6 x10^3/uL (4.8-10.8)
[2019-02-28 05:18] LABS: CALCIUM 8.1 mg/dL (8.5-10.3); CREATININE 0.9 mg/dL (0.4-1.0)
[2019-02-28] MEDS: LEVOTHYROXINE 25 MCG TABLET PO SCH (06:03)
[2019-02-28] MEDS: CEFEPIME 1 GM in SODIUM CHLORIDE 0.9% MINIBAG 100 ML IV SCH (06:04)
[2019-02-28] MEDS: GABAPENTIN 300 MG CAPSULE PO SCH (06:04)
[2019-02-28] MEDS: INSULIN ASPART 300 UNIT/3 ML PEN SUBQ SCH ×2 (07:54→11:42)
[2019-02-28] MEDS: ENOXAPARIN 40 MG/0.4 ML SYRINGE SUBQ SCH (08:02)
[2019-02-28] MEDS: CARVEDILOL 3.125 MG TABLET PO SCH (08:02)
[2019-02-28] MEDS: ASPIRIN EC 81 MG TABLET PO SCH (08:02)
[2019-02-28] MEDS: amLODIPine 5 MG TABLET PO SCH (08:02)
[2019-02-28] MEDS: SODIUM CHLORIDE FLUSH 0.9% 10 ML SYRINGE IVP SCH (08:03)
[2019-02-28] MEDS: POLYETHYLENE GLYCOL 3350 17 GM PACKET PO SCH (08:03)
[2019-02-28] MEDS: FAMOTIDINE 20 MG TABLET PO SCH (08:03)
[2019-02-28] MEDS: guaiFENesin 600 MG TABLET PO SCH (08:13)
[2019-02-28] MEDS ORDERED: amLODIPine 5 MG TABLET PO ONE (10:40)
[2019-02-28] MEDS: IPRATROPIUM/ALBUTEROL 3 ML NEB INH SCH ×2 (10:56→10:57)
--- NOTE | 2019-02-28 12:05 | Discharge Plan ---
Discharge Plan Problem Reviewed?: Yes Disposition: Home, Self Care Condition: Poor Prescriptions: Albuterol Sulfate [Proventil Hfa Inhaler] 1 - 2 puffs INH Q4H PRN #1 inhaler PRN Reason: Shortness Of Air/Wheezing Amlodipine Besylate 10 mg PO DAILY #20 tablet Cephalexin [Keflex] 500 mg PO BID #14 capsule Ipratropium/Albuterol [Combivent Respimat] 4 gm IH Q6H PRN #1 aer.w.adap PRN Reason: Shortness Of Air/Wheezing Saccharomyces Boulardii [Florastor] 250 mg PO DAILY #7 capsule Diet: Diabetic Activity Restrictions: Activity as Tolerated Shower Restrictions: No (fall precaution) Instruction Topics: Cephalexin tablets or capsules, Pneumonia, Albuterol inhalation aerosol, Albuterol Ipratropium solution for inhalation, Amlodipine tablets Health Concerns: [pneumonia and COPD Plan of Treatment: continue antibiotics course and INH breath treatment as needed Care Goals: stabilization of your medical conditions Assessment: CXR reveal you have pneumonia. Breath treatment help your O2 saturation Additional Instructions or Follow Up instructions: you may followup your PCP in one week, continue your antibiotics course treatment, have breath treatment as needed. Should your symptoms return or worsen, you may present ER, call 911 or your PCP for help. Follow-Up Care: Outpatient Rehab - PT No Smoking: If you smoke, Please STOP! Call for help. Follow-up with: Justice Markham MD [Primary Care Provider] -
--- NOTE | 2019-02-28 12:13 | DISCHARGE SUMMARY ---
Discharge Summary Discharge Date: 02/28/19 Discharging Provider: MANSFIELD Primary Care Provider: Dr. Markham Condition at Discharge: Poor Discharge Disposition: 01 Home, Self Care Discharge Facility Name: home - DIAGNOSES Admission Diagnoses: (1) Pneumonia (2) Respiratory failure with hypoxia (3) DM2 (diabetes mellitus, type 2) (4) HTN (hypertension) (5) CKD (chronic kidney disease) stage 3, GFR 30-59 ml/min (6) COPD (chronic obstructive pulmonary disease) (7) CHF (congestive heart failure), NYHA class I Discharge Diagnoses with Status of Each Condition: (1) Pneumonia pt's WBC is normal. pt has comfortable to breath at room air, nurse report her sats is 94% at room air. O2 desat study by RT reveals pt is not qualified for home O2. RT report pt walked 200 feet and pt did not require O2. pt is prescribed antibiotics to finish the treatment course. (2) Respiratory failure with hypoxia resolve. pt has no difficult to breath at room air, nurse report her sats is 94% at room air. O2 desat study by RT reveals pt is not qualified for home O2. (3) DM2 (diabetes mellitus, type 2) stable, continue home regimen, followup PCP (4) HTN (hypertension) increase Norsc to 10mg daily from 5mg daily, followup PCP (5) CKD (chronic kidney disease) stage 3, GFR 30-59 ml/min improved and stable (6) COPD (chronic obstructive pulmonary disease) pt was found to have tobacco smoker for over 40 yrs, stop smoking 10 yrs ago. pt is prescribed Albuterol and Combivent PRN (7) CHF (congestive heart failure), NYHA class I stable, and followup PCP management. - HPI History of Present Illness: Ms. Campuzano is 83-yrs-old female with a PMH significant for HTN, CKD, HLD, CHF, COPD, SOB, DM2, osteoarthritis, who present ER complain of cough, shortness of breath. Pt report she has not been well for a week. Then she developed cough with yellowish sputum. In this Wednesday she felt very chill but she denies fever. She denies chest pain, headache, abdominal pain, nausea, vomiting. CXR reveals mild congestive heart failure, asymmetric right basilar opacity, possible pneumonia, and left basilar atelectasis. Lab test reveals pt has 1.2 creatinine, elevated WBC to 11.2. Pt is afebrile at ER. Her sats was down to 87% on room air. pt was admitted for above medical reason. - HOSPITAL COURSE Hospital Course: pt was admitted for SOB, and hypoxia with cough. pt was found to have Pneumonia. pt was found to have COPD as well. pt's daughter report pt smoke cigarette for over 40 yrs. pt was treated with antibiotics and breath treatment. after treatment, pt is comfortable breath. pt's WBC became normal. 94% sats on room air per nurse report. Desat study by RT is reported pt is not qualified for home O2. pt is prescribed antibiotics and breath treat Albuterol and Combivent for d/c home - ALLERGIES Allergies/Adverse Reactions: Allergies Allergy/AdvReac Type Severity Reaction Status Date / Time No Known Drug Allergies Allergy Verified 02/25/19 09:03 - MEDICATIONS Home Medications: Ambulatory Orders Medication Instructions Recorded Confirmed Aspirin [Aspir 81] 81 mg PO DAILY 01/08/15 02/25/19 Carvedilol [Coreg] 6.25 mg PO BID 01/08/15 02/25/19 Cholecalciferol (Vitamin D3) 2,000 unit PO DAILY 01/08/15 02/25/19 [Vitamin D3] Glipizide [Glipizide ER] 2.5 mg PO DAILY 01/08/15 02/25/19 Levothyroxine [Synthroid] 75 mcg PO QDAC 01/08/15 02/25/19 Rosuvastatin Calcium [Crestor] 30 mg PO DAILY 01/08/15 02/25/19 SITagliptin [Januvia] 100 mg PO DAILY 07/27/18 02/25/19 Ferrous Sulfate 325 mg ORAL DAILY 01/09/19 02/25/19 Gabapentin 1 cap ORAL TID 01/09/19 02/25/19 Albuterol Sulfate [Proventil Hfa 1 - 2 puffs INH Q4H PRN #1 inhaler 02/28/19 Inhaler] Amlodipine Besylate 10 mg PO DAILY #20 tablet 02/28/19 Cephalexin [Keflex] 500 mg PO BID #14 capsule 02/28/19 Ipratropium/Albuterol [Combivent 4 gm IH Q6H PRN #1 aer.w.adap 02/28/19 Respimat] Saccharomyces Boulardii [Florastor] 250 mg PO DAILY #7 capsule 02/28/19 - PHYSICAL EXAM AT DISCHARGE General Appearance: positive: No acute distress, Alert. negative: Lethargic Eyes Bilateral: positive: Normal inspection, PERRL, No lid inflammation, Conjunctivae nml ENT: positive: ENT inspection nml, Pharynx nml, No signs of dehydration. negative: Purulent nasal drainage, Pharyngeal erythema, Oral lesions Neck: positive: Nml inspection, Thyroid nml, No JVD. negative: Trachea midline, Thyromegaly, Lymphadenopathy (R), Lymphadenopathy (L), Stiff neck, Swelling/bruising, Tracheal deviation Respiratory: positive: Chest non-tender, No respiratory distress. negative: Wheezes, Rales, Rhonchi Cardiovascular: positive: Regular rate & rhythm, No murmur, No gallop. negative: Irregularly irregular, Extrasystoles, Tachycardia, Bradycardia, JVD present, Systolic murmur, Diastolic murmur Peripheral Pulses: positive: 2+ Abdomen: positive: Non-tender, No organomegaly, Nml bowel sounds, No distention. negative: Tenderness, Guarding, Rebound Back: positive: Nml inspection. negative: CVA tenderness (R), CVA tenderness (L) Skin: positive: Color nml, No rash, Warm, Dry. negative: Cyanosis, Diaphoresis, Pallor Extremities: positive: Non-tender, Full ROM, Nml appearance. negative: Calf tenderness, Joint swelling, Shashi's sign/cords Neurologic/Psychiatric: positive: Oriented x3, Motor nml, Sensation nml, Mood/affect nml. negative: Weakness, Sensory loss, Facial droop, Slurred/abnml speech, Depressed mood/affect - LABS Result Diagrams: 02/28/19 04:50 02/28/19 04:50 - SEPSIS Current Stage of Sepsis: Ruled out - FOLLOW UP Follow Up: you may followup your PCP in one week, continue your antibiotics course treatmen t, have breath treatment as needed. Should your symptoms return or worsen, you may present ER, call 911 or your PCP for help. - TIME SPENT Time Spent in Discharge (Minutes): 55
[2019-02-28 12:58] VITALS: BP 145/73
[2019-03-01] MEDS ORDERED: amLODIPine 5 MG TABLET PO SCH (09:00)
== END 2019-02-28 14:13 | disposition home or self-care (01) | DRG 193 ==
LOC: ED 08:46 → MS2 13:03
PROVIDERS: ADMIT Nurse Practitioner Gerontology; ATTEND Nurse Practitioner Gerontology
DX: J18.1 Lobar pneumonia, unspecified organism (principal); J96.91 Respiratory failure, unspecified with hypoxia; I13.0 Hypertensive heart and chronic kidney disease with heart failure and stage 1 through stage 4 chronic kidney disease, or unspecified chronic kidney disease; I50.30 Unspecified diastolic (congestive) heart failure; E11.22 Type 2 diabetes mellitus with diabetic chronic kidney disease; N18.3 Chronic kidney disease, stage 3 (moderate); J44.9 Chronic obstructive pulmonary disease, unspecified; E78.5 Hyperlipidemia, unspecified; I11.0 Hypertensive heart disease with heart failure; I50.9 Heart failure, unspecified; E78.00 Pure hypercholesterolemia, unspecified; E11.9 Type 2 diabetes mellitus without complications; Z87.891 Personal history of nicotine dependence; M19.90 Unspecified osteoarthritis, unspecified site; Z95.5 Presence of coronary angioplasty implant and graft; Z79.82 Long term (current) use of aspirin; Z79.84 Long term (current) use of oral hypoglycemic drugs
CPT/HCPCS: 36415; 71045; 80048; 80053; 83036; 83605; 83690; 83735; 83880; 84443; 84484; 85025; 87040; 87070; 87077; 87181; 87205; 94640; 94761; 96365; 99284; A9270; J1650; J3370

== ENCOUNTER 2019-03-11 08:11 | Outpatient (CLI) | payer MEDICARE, OTHER ==
--- NOTE | 2019-03-11 21:45 | XRAY Report ---
Reason: PNEUMONIA,RIGHT LOWER LOBE Procedure Date: 03/11/2019 Accession Number: [id number] / [id number] Procedure: XR - Chest 2 View X-Ray CPT Code: 82994 FULL RESULT: EXAM: CHEST RADIOGRAPHY EXAM DATE: 03/11/2019 08:13 AM. CLINICAL HISTORY: Pneumonia, right LOWER LOBE. COMPARISON: CHEST 1 VIEW 02/25/2019 10:34 AM. TECHNIQUE: 2 views. FINDINGS: Lungs/Pleura: No focal pneumonia or edema evident with note of minimal basilar scarring. No pleural effusion. No pneumothorax. Normal volumes. Mediastinum: Heart and mediastinal contours are unremarkable. Other: None. IMPRESSION: No acute process seen in the chest. RADIA
== END 2019-03-11 08:12 | disposition home or self-care (01) ==
LOC: DI 08:11
PROVIDERS: ATTEND Family Medicine
DX: J18.9 Pneumonia, unspecified organism (principal)
CPT/HCPCS: 71046

== ENCOUNTER 2019-03-14 10:52 | Outpatient (CLI) | payer MEDICARE, OTHER | END 2019-03-14 10:53 | disposition home or self-care (01) | LOC: DI.WCP 10:52 | PROVIDERS: ATTEND Physician Assistant | DX: Z53.9 Procedure and treatment not carried out, unspecified reason (principal) ==

== ENCOUNTER 2019-06-21 16:08 | Emergency (ER) | payer MEDICARE, OTHER ==
[2019-06-21 16:15] VITALS: BP 100/84
[2019-06-21] MEDS ORDERED: BUFFERED LIDOCAINE 10 ML SYRINGE SUBQ STA (17:09)
--- NOTE | 2019-06-21 17:10 | ED Physician Documentation ---
PD HPI LOWER EXT INJURY - Stated complaint Stated Complaint: L KNEE LAC - Chief complaint Chief Complaint: Laceration - History obtained from History obtained from: Patient - History of Present Illness PD HPI LOW EXT INJURY LOCATION: Left (83-year-old woman who is up-to-date on tetanus tripped and fell impacting her left knee on the pavement. She has minimal pain but has a laceration there. She is able to walk and bear weight without issue. No other injuries.) Review of Systems Constitutional: reports: Reviewed and negative Cardiac: reports: Reviewed and negative Respiratory: reports: Reviewed and negative PD PAST MEDICAL HISTORY - Past Medical History Cardiovascular: Congestive heart failure, Hypertension, High cholesterol Respiratory: COPD, Shortness of breath Neuro: None Endocrine/Autoimmune: Type 2 diabetes GI: None TELEPHONE ANSWERER: None : None HEENT: None Psych: None Musculoskeletal: Osteoarthritis Derm: None - Past Surgical History Past Surgical History: Yes General: Colonoscopy /TELEPHONE ANSWERER: Hysterectomy Cardiovascular: Coronary stent - Present Medications Home Medications: Ambulatory Orders Medication Instructions Recorded Confirmed Aspirin [Aspir 81] 81 mg PO DAILY 01/08/15 02/25/19 Carvedilol [Coreg] 6.25 mg PO BID 01/08/15 02/25/19 Cholecalciferol (Vitamin D3) 2,000 unit PO DAILY 01/08/15 02/25/19 [Vitamin D3] Glipizide [Glipizide ER] 2.5 mg PO DAILY 01/08/15 02/25/19 Levothyroxine [Synthroid] 75 mcg PO QDAC 01/08/15 02/25/19 Rosuvastatin Calcium [Crestor] 30 mg PO DAILY 01/08/15 02/25/19 SITagliptin [Januvia] 100 mg PO DAILY 07/27/18 02/25/19 Ferrous Sulfate 325 mg ORAL DAILY 01/09/19 02/25/19 Gabapentin 1 cap ORAL TID 01/09/19 02/25/19 Albuterol Sulfate [Proventil Hfa 1 - 2 puffs INH Q4H PRN #1 inhaler 02/28/19 Inhaler] Amlodipine Besylate 10 mg PO DAILY #20 tablet 02/28/19 Cephalexin [Keflex] 500 mg PO BID #14 capsule 02/28/19 Ipratropium/Albuterol [Combivent 4 gm IH Q6H PRN #1 aer.w.adap 02/28/19 Respimat] Saccharomyces Boulardii [Florastor] 250 mg PO DAILY #7 capsule 02/28/19 - Allergies Allergies/Adverse Reactions: Allergies Allergy/AdvReac Type Severity Reaction Status Date / Time No Known Drug Allergies Allergy Verified 06/21/19 16:12 - Social History Does the pt smoke?: No Smoking Status: Former smoker Does the pt drink ETOH?: No Does the pt have substance abuse?: No - Immunizations Immunizations are current?: Yes - POLST Patient has POLST: No PD ED PE NORMAL - Vitals Vital signs reviewed: Yes - General General: Alert and oriented X 3, No acute distress - Extremities Extremities: Other (There is a 3 cm shallow jagged laceration that is vertical over the left kneecap. No underlying bony tenderness or effusion or limited range of motion.) - Neuro Neuro: Alert and oriented X 3, Normal speech Results - Vitals Vitals: Vital Signs - 24 hr 06/21/19 16:13 Temperature 36.6 C Heart Rate 90 Respiratory 17 Rate Blood Pressure 100/84 H O2 Saturation 96 Oxygen O2 Source Room air Procedures - Laceration (location) L knee Length in cm: 3 Wound type: Stellate, Into subcut fat Anesthesia: Lidocaine 1%, With bicarb Wound Preparation: Irrigated copiously NS Skin layer closure: Nylon, Running, Size #-0 - enter number (4-0) Other: Patient tolerated well, No complications, Neurovascular intact, Tetanus UTD Complexity: Simple Departure - Departure Disposition: 01 Home, Self Care Clinical Impression: Laceration of left knee Qualifiers: Encounter type: initial encounter Qualified Code(s): S81.012A - Laceration without foreign body, left knee, initial encounter Condition: Good Record reviewed to determine appropriate education?: Yes Instructions: ED Laceration All Comments: Come back for any signs of infection which would include: Redness, swelling, drainage, increased pain, or fevers. You can wash it soap and water. Keep it covered and moist with bacitracin ointment which is available over the counter; avoid neosporin. Follow-up with your physician in 14 days for suture removal.
== END 2019-06-21 17:40 | disposition home or self-care (01) ==
LOC: ED 16:08
DX: S81.012A Laceration without foreign body, left knee, initial encounter (principal); W01.0XXA Fall on same level from slipping, tripping and stumbling without subsequent striking against object, initial encounter; I10 Essential (primary) hypertension; E11.9 Type 2 diabetes mellitus without complications; Z79.84 Long term (current) use of oral hypoglycemic drugs; Z79.82 Long term (current) use of aspirin; Z87.891 Personal history of nicotine dependence
CPT/HCPCS: 12002; 99281

== ENCOUNTER 2020-08-20 10:34 | Outpatient (CLI) | payer MEDICARE, OTHER ==
--- NOTE | 2020-08-20 13:32 | XRAY Report ---
PROCEDURE: Chest 2 View X-Ray INDICATIONS: SHORTNESS OF BREATH TECHNIQUE: 2 view(s) of the chest. COMPARISON: Chest x-ray 03/11/2019 FINDINGS: Surgical changes and devices: None. Lungs and pleura: No pleural effusions or pneumothorax. Chronic interstitial changes are present. Mediastinum: Mediastinal contours are normal. Heart size is normal. Bones and chest wall: No suspicious bony abnormalities. Soft tissues appear unremarkable. IMPRESSION: No acute pulmonary process. Reviewed by: Vernell Wiseman MD on 08/20/2020 1:30 PM [facility] Approved by: Vernell Wiseman MD on 08/20/2020 1:30 PM [facility] Station ID: [id number]
== END 2020-08-20 23:59 | disposition home or self-care (01) ==
LOC: DI.WCP 10:34
PROVIDERS: ATTEND Family Medicine
DX: R06.02 Shortness of breath (principal)

== ENCOUNTER 2021-03-19 08:00 | Outpatient (CLI) | payer MEDICARE, OTHER ==
[2021-03-19 18:03] LABS: BASOPHILS # (AUTO) 0.1 10^3/uL (0.0-0.1); BASOPHILS % (AUTO) 0.6 %; EOSINOPHILS # (AUTO) 0.2 10^3/uL (0.0-0.7); EOSINOPHILS % (AUTO) 2.3 %; HCT - HEMATOCRIT 44.6 % (37.0-47.0); LYMPHOCYTES # (AUTO) 1.8 10^3/uL (1.5-3.5); MEAN CORPUSCULAR HEMOGLOBIN 30.1 pg (27.0-31.0); MEAN CORPUSCULAR HGB CONC 31.4 g/dL (32.0-36.0); MEAN CORPUSCULAR VOLUME 95.9 fL (81.0-99.0); MEAN PLATELET VOLUME 11.9 fL (7.9-10.8); MONOCYTES # (AUTO) 0.6 10^3/uL (0.0-1.0); MONOCYTES % (AUTO) 7.1 %; NEUTROPHILS # (AUTO) 5.8 10^3/uL (1.5-6.6); NEUTROPHILS % (AUTO) 68.6 %; PLT - PLATELET COUNT 203 10^3/uL (130-450); RED BLOOD COUNT 4.65 10^6/uL (4.20-5.40); WHITE BLOOD COUNT 8.4 x10^3/uL (4.8-10.8)
[2021-03-19 18:23] LABS: CREATININE,URINE 141.5 mg/dL; MICROALBUM/CREATININE RATIO,UR 262.9 ug/mg (<30.0); MICROALBUMIN,URINE 37.2 mg/dL (0-300.0)
[2021-03-19 18:55] LABS: % IRON SATURATION 28 % (20-50); ALBUMIN 4.4 g/dL (3.2-5.5); ALBUMIN/GLOBULIN RATIO 1.2 (1.0-2.2); ALKALINE PHOSPHATASE 62 IU/L (42-121); ALT ALANINE AMINOTRANSFERASE 19 IU/L (10-60); AST ASPARTATE AMINOTRANSFERASE 20 IU/L (10-42); BILIRUBIN,TOTAL 0.9 mg/dL (0.2-1.0); BUN - BLOOD UREA NITROGEN 31 mg/dL (6-20); CALCIUM 9.6 mg/dL (8.5-10.3); CARBON DIOXIDE - CO2 29 mmol/L (21-32); CHLORIDE 105 mmol/L (101-111); CHOL/HDL RATIO 2.4 (<4.4); CHOLESTEROL 135 mg/dL; CREATININE 1.1 mg/dL (0.4-1.0); GFR - MDRD 47 (>89); GLUCOSE 138 mg/dL (70-100); HDL CHOLESTEROL 56 mg/dL; IRON 94 ug/dL (28-170); LDL CHOLESTEROL,CALCULATED 60 mg/dL; LDL/HDL RATIO 1.1 (<4.4); POTASSIUM 4.4 mmol/L (3.5-5.0); SODIUM 144 mmol/L (135-145); TOTAL IRON BINDING CAPACITY 337 ug/dL (250-450); TOTAL PROTEIN 8.1 g/dL (6.7-8.2); TRANSFERRIN 241 mg/dL (192-382); TRIGLYCERIDES 96 mg/dL; VLDL CHOLESTEROL 19 mg/dL
[2021-03-19 19:04] LABS: THYROID STIMULATING HORMONE 8.36 uIU/mL (0.34-5.60)
[2021-03-19 19:10] LABS: FERRITIN 51.8 ng/mL (11.0-306.8)
[2021-03-19 19:33] LABS: FREE T4 (FREE THYROXINE) 0.98 ng/dL (0.58-1.64)
[2021-03-19 20:50] LABS: ESTIMATED AVERAGE GLUCOSE 128 mg/dL (70-100); HEMOGLOBIN A1c% 6.1 % (4.27-6.07)
== END 2021-03-19 23:59 | disposition home or self-care (01) ==
LOC: LAB.WCP 08:00
PROVIDERS: ATTEND Family Medicine
DX: E11.9 Type 2 diabetes mellitus without complications (principal); D50.9 Iron deficiency anemia, unspecified
CPT/HCPCS: 36415; 80053; 80061; 82043; 82570; 82607; 82728; 83036; 83540; 83721; 84439; 84443; 84466; 85025

== ENCOUNTER 2021-06-17 16:31 | Outpatient (CLI) | payer MEDICARE, OTHER ==
--- NOTE | 2021-06-18 08:19 | XRAY Report ---
PROCEDURE: Chest 2 View X-Ray INDICATIONS: SHORTNESS OF BREATH TECHNIQUE: 2 view(s) of the chest. COMPARISON: August 20, 2020 FINDINGS: SUPPORT DEVICES: None. LUNG/PLEURA: Coarsened interstitial markings. A linear platelike density projects over the thoracic s pine on the lateral view, which may reflect atelectasis and/or scarring. No pleural effusion or pneum othorax. MEDIASTINUM: The cardiomediastinal silhouette is within normal limits. Atheromatous change of the aor ta. BONES/SOFT TISSUES: No acute abnormality. IMPRESSION: 1.Basilar plate atelectasis versus scar. Reviewed by: Felton Waters MD on 06/18/2021 8:18 AM PDT Approved by: Felton Waters MD on 06/18/2021 8:18 AM PDT Station ID: [id number]
== END 2021-06-17 16:32 | disposition home or self-care (01) ==
LOC: DI.N 16:31
PROVIDERS: ATTEND Family Medicine
DX: R06.02 Shortness of breath (principal); J44.9 Chronic obstructive pulmonary disease, unspecified; R91.8 Other nonspecific abnormal finding of lung field
CPT/HCPCS: 36415; 80048; 85025

== ENCOUNTER 2021-06-17 16:47 | Outpatient (CLI) | payer MEDICARE, OTHER ==
[2021-06-17 21:32] LABS: BASOPHILS # (AUTO) 0.1 10^3/uL (0.0-0.1); BASOPHILS % (AUTO) 0.7 %; EOSINOPHILS # (AUTO) 0.2 10^3/uL (0.0-0.7); HCT - HEMATOCRIT 39.7 % (37.0-47.0); HGB - HEMOGLOBIN 12.2 g/dL (12.0-16.0); LYMPHOCYTES # (AUTO) 1.5 10^3/uL (1.5-3.5); LYMPHOCYTES % (AUTO) 14.2 %; MEAN CORPUSCULAR HEMOGLOBIN 30.3 pg (27.0-31.0); MEAN CORPUSCULAR HGB CONC 30.7 g/dL (32.0-36.0); MEAN CORPUSCULAR VOLUME 98.5 fL (81.0-99.0); MEAN PLATELET VOLUME 10.5 fL (7.9-10.8); MONOCYTES # (AUTO) 0.7 10^3/uL (0.0-1.0); MONOCYTES % (AUTO) 6.7 %; PLT - PLATELET COUNT 245 10^3/uL (130-450); RED BLOOD COUNT 4.03 10^6/uL (4.20-5.40); RED CELL DISTRIBUTION WIDTH 14.8 % (12.0-15.0); WHITE BLOOD COUNT 10.5 x10^3/uL (4.8-10.8)
[2021-06-17 21:33] LABS: CALCIUM 8.7 mg/dL (8.5-10.3); CREATININE 1.4 mg/dL (0.4-1.0)
== END 2021-06-17 16:48 | disposition home or self-care (01) ==
LOC: LAB.N 16:47
PROVIDERS: ATTEND Family Medicine
DX: R06.02 Shortness of breath (principal)
CPT/HCPCS: 36415; 80048; 85025

== ENCOUNTER 2021-06-26 07:44 | Outpatient (CLI) | payer MEDICARE, OTHER | END 2021-06-26 07:45 | disposition critical access hospital (66) | LOC: EMS 07:44 | DX: R06.02 Shortness of breath (principal) | CPT/HCPCS: A0425; A0429 ==

== ENCOUNTER 2021-06-26 07:57 | Inpatient (IN) | payer MEDICARE, OTHER ==
--- NOTE | 2021-06-26 08:04 | ED Physician Documentation ---
PD HPI DYSPNEA - Stated complaint Stated Complaint: SOA - History obtained from History obtained from: Patient, EMS - Additional information Additional information: This is an 85-year-old woman presents by ambulance for shortness of breath and weakness. She states that she has been sick for 6 days, that said it is in question because she had a chest x-ray done outpatient for the symptoms on June 17 which showed atelectasis versus scar, but no acute findings otherwise. States that she has a mild cough but is mostly just short of breath and weak. Denies chest pain or pedal edema. States that she has no medical history, but he is on medications for cholesterol, type 2 diabetes, and is on Coreg. She was noted to be in A. fib prehospital with rates in the low 100s, and room air sats of 60s. She was not previously diagnosed with A. fib as far as we can tell. Review of Systems Constitutional: denies: Fever, Chills Cardiac: denies: Chest pain / pressure, Palpitations Respiratory: reports: Dyspnea, Cough GI: denies: Abdominal Pain, Nausea, Vomiting, Diarrhea PD PAST MEDICAL HISTORY - Past Medical History Cardiovascular: Congestive heart failure, Hypertension, High cholesterol Respiratory: COPD, Shortness of breath Neuro: None Endocrine/Autoimmune: Type 2 diabetes GI: None FITNESS SPECIALIST: None : None HEENT: None Psych: None Musculoskeletal: Osteoarthritis Derm: None - Past Surgical History Past Surgical History: Yes General: Colonoscopy /FITNESS SPECIALIST: Hysterectomy Cardiovascular: Coronary stent - Present Medications Home Medications: Ambulatory Orders Medication Instructions Recorded Confirmed Aspirin [Aspir 81] 81 mg PO DAILY 01/08/15 02/25/19 Carvedilol [Coreg] 12.5 mg PO BID 01/08/15 02/25/19 Glipizide [Glipizide ER] 2.5 mg PO DAILY 01/08/15 02/25/19 Levothyroxine [Synthroid] 75 mcg PO QDAC 01/08/15 02/25/19 Rosuvastatin Calcium [Crestor] 20 mg PO DAILY 01/08/15 02/25/19 SITagliptin [Januvia] 100 mg PO DAILY 07/27/18 02/25/19 Gabapentin 1 cap ORAL TID 01/09/19 02/25/19 Amlodipine Besylate 10 mg PO DAILY #20 tablet 02/28/19 - Allergies Allergies/Adverse Reactions: Allergies Allergy/AdvReac Type Severity Reaction Status Date / Time No Known Drug Allergies Allergy Verified 06/26/21 08:10 - Social History Does the pt smoke?: No Smoking Status: Former smoker Does the pt drink ETOH?: No Does the pt have substance abuse?: No - Immunizations Immunizations are current?: Yes - POLST Patient has POLST: No PD ED PE NORMAL - Vitals Vital signs reviewed: Yes (PO2 65% on RA) - General General: No acute distress, Well developed/nourished, Other (She is quite hard of hearing) - HEENT HEENT: PERRL, EOMI - Neck Neck: Supple, no meningeal sign, No bony TTP - Cardiac Cardiac: Other (Irregularly irregular without murmur) - Respiratory Respiratory: Other (Diminished throughout with mild crackles at the bases, she is tachypneic with seemingly small tidal volumes.) - Abdomen Abdomen: Normal bowel sounds, Soft, Non tender - Back Back: No CVA TTP, No spinal TTP - Derm Derm: Normal color, Warm and dry - Extremities Extremities: Other (Venous stasis changes but no edema or tenderness of the calves.) - Neuro Neuro: Alert and oriented X 3, Normal speech Results - Vitals Vitals: Vital Signs - 24 hr 06/26/21 06/26/21 06/26/21 07:58 08:40 09:10 Temperature 36.5 C 36.7 C Heart Rate 100 98 96 Respiratory 24 20 24 Rate Blood Pressure 142/98 H 147/87 H 119/85 H O2 Saturation 65 L 98 96 06/26/21 06/26/21 06/26/21 09:30 10:00 10:35 Temperature 36.3 C L 36.4 C L Heart Rate 82 93 91 Respiratory 11 L 10 L 22 Rate Blood Pressure 137/79 H 140/64 H 128/67 O2 Saturation 98 98 98 06/26/21 11:00 Temperature 36.7 C Heart Rate 85 Respiratory 14 Rate Blood Pressure 127/80 O2 Saturation 98 Oxygen O2 Source Nasal cannula Oxygen Flow Rate 4 - EKG (time done) 0814 Rate: Rate (enter#) (101) Rhythm: Atrial fibrillation (w 1 pvc) [place]: Normal QRS: Low voltage Ischemia: Non specific changes Computer interpretation: Agree with computer - Labs Labs: Laboratory Tests 06/26/21 06/26/21 06/26/21 09:08 09:08 09:08 WBC 10.7 RBC 4.20 Hgb 12.8 Hct 42.3 MCV 100.7 H MCH 30.5 MCHC 30.3 L RDW 16.3 H Plt Count 233 MPV 10.5 Neut # (Auto) 9.4 H Lymph # (Auto) 0.8 L [place] # (Auto) 0.4 Eos # (Auto) 0.0 Baso # (Auto) 0.0 Absolute Nucleated RBC 0.06 Nucleated RBC % 0.6 PT 13.1 H INR 1.2 D-Dimer 367.4 H Sodium 141 Potassium 4.1 Chloride 100 L Carbon Dioxide 30 Anion Gap 11.0 BUN 38 H Creatinine 1.0 Estimated GFR (MDRD) 53 L Glucose 165 H Calcium 8.7 Phosphorus 5.1 H Total Bilirubin 0.6 AST 19 ALT 27 Alkaline Phosphatase 70 Troponin I High Sens B-Natriuretic Peptide Total Protein 7.2 Albumin 3.9 Globulin 3.3 Albumin/Globulin Ratio 1.2 Lipase 27 Nasal Adenovirus (PCR) Nasal B. parapertussis DNA (PCR) Nasal Coronavir 229E PCR Nasal Coronavir HKU1 PCR Nasal Coronavir NL63 PCR Nasal Coronavir OC43 PCR Nasal Enterovir/Rhinovir PCR Nasal Influenza B PCR Nasal Influenza A PCR Nasal Parainfluen 1 PCR Nasal Parainfluen 2 PCR Nasal Parainfluen 3 PCR Nasal Parainfluen 4 PCR Nasal RSV (PCR) Nasal B.pertussis DNA PCR Nasal C.pneumoniae (PCR) Shine Human Metapneumo PCR Nasal M.pneumoniae (PCR) Nasal SARS-CoV-2 (PCR) 06/26/21 06/26/21 06/26/21 09:08 09:08 09:15 WBC RBC Hgb Hct MCV MCH MCHC RDW Plt Count MPV Neut # (Auto) Lymph # (Auto) [place] # (Auto) Eos # (Auto) Baso # (Auto) Absolute Nucleated RBC Nucleated RBC % PT INR D-Dimer Sodium Potassium Chloride Carbon Dioxide Anion Gap BUN Creatinine Estimated GFR (MDRD) Glucose Calcium Phosphorus Total Bilirubin AST ALT Alkaline Phosphatase Troponin I High Sens 50.4 H* B-Natriuretic Peptide 740 H Total Protein Albumin Globulin Albumin/Globulin Ratio Lipase Nasal Adenovirus (PCR) NOT DETECTED Nasal B. parapertussis DNA (PCR) NOT DETECTED Nasal Coronavir 229E PCR NOT DETECTED Nasal Coronavir HKU1 PCR NOT DETECTED Nasal Coronavir NL63 PCR NOT DETECTED Nasal Coronavir OC43 PCR NOT DETECTED Nasal Enterovir/Rhinovir PCR NOT DETECTED Nasal Influenza B PCR NOT DETECTED Nasal Influenza A PCR NOT DETECTED Nasal Parainfluen 1 PCR NOT DETECTED Nasal Parainfluen 2 PCR NOT DETECTED Nasal Parainfluen 3 PCR NOT DETECTED Nasal Parainfluen 4 PCR NOT DETECTED Nasal RSV (PCR) NOT DETECTED Nasal B.pertussis DNA PCR NOT DETECTED Nasal C.pneumoniae (PCR) NOT DETECTED Shine Human Metapneumo PCR NOT DETECTED Nasal M.pneumoniae (PCR) NOT DETECTED Nasal SARS-CoV-2 (PCR) NOT DETECTED - Rads (name of study) Single view portable chest x-ray shows congestive heart failure and probable pulmonary hypertension Radiology: EMP read contemporaneously CTA chest Radiology: EMP read contemporaneously (CT angiography of the chest, PE protocol shows right larger than left pleural effusions, peribronchial cuffing, subpleural scarring needing follow-up, no PE.) PD MEDICAL DECISION MAKING - ED course ED course: 85-year-old woman presents by ambulance for shortness of breath worsening for the last week with generalized weakness. Found to be in new onset A. fib or at least unknown onset A. fib, but she is rate controlled. Sats in the 60s and requiring 4 L of oxygen. Exam consistent with CHF but not particularly hype rvolemic corresponding labs corroborating this. She was given Lasix here and presented to the hospitalist for admission at 11:28 AM. Departure - Departure Disposition: 66 [facility] DC/Xfer Clinical Impression: Congestive heart failure, Hypoxemia
--- NOTE | 2021-06-26 08:33 | XRAY Report ---
PROCEDURE: Chest 1 View X-Ray INDICATIONS: dyspnea TECHNIQUE: One view of the chest was acquired. COMPARISON: 06/17/2021 FINDINGS: Surgical changes and devices: None. Lungs and pleura: Interval worsening. Interstitial pulmonary edema. Small right pleural effusion. Pat maurilio bibasilar atelectasis. Mediastinum: Mild cardiomegaly. Central hilar vascular enlargement suggests probable pulmonary arteri al hypertension. Bones and chest wall: No suspicious bony lesions. Overlying soft tissues appear unremarkable. IMPRESSION: 1. Congestive heart failure exacerbation. 2. Probable pulmonary arterial hypertension. Reviewed by: Baron Robertson MD on 06/26/2021 8:32 AM PDT Approved by: Baron Robertson MD on 06/26/2021 8:32 AM PDT Station ID: [id number]
[2021-06-26] MEDS ORDERED: IOVERSOL 320 100 ML VIAL IVP ONE (08:46)
[2021-06-26 09:22] LABS: BASOPHILS % (AUTO) 0.2 %; EOSINOPHILS % (AUTO) 0.2 %; HCT - HEMATOCRIT 42.3 % (37.0-47.0); HGB - HEMOGLOBIN 12.8 g/dL (12.0-16.0); LYMPHOCYTES # (AUTO) 0.8 10^3/uL (1.5-3.5); LYMPHOCYTES % (AUTO) 7.6 %; MEAN CORPUSCULAR HEMOGLOBIN 30.5 pg (27.0-31.0); MEAN CORPUSCULAR HGB CONC 30.3 g/dL (32.0-36.0); MEAN CORPUSCULAR VOLUME 100.7 fL (81.0-99.0); MEAN PLATELET VOLUME 10.5 fL (7.9-10.8); MONOCYTES # (AUTO) 0.4 10^3/uL (0.0-1.0); MONOCYTES % (AUTO) 3.9 %; NEUTROPHILS # (AUTO) 9.4 10^3/uL (1.5-6.6); NEUTROPHILS % (AUTO) 87.4 %; NRBC ABSOLUTE COUNT (AUTO) 0.06 x10^3/uL; NUCLEATED RED BLOOD CELLS AUTO 0.6 /100WBC; PLT - PLATELET COUNT 233 10^3/uL (130-450); RED CELL DISTRIBUTION WIDTH 16.3 % (12.0-15.0); WHITE BLOOD COUNT 10.7 x10^3/uL (4.8-10.8)
[2021-06-26 09:34] LABS: ALBUMIN 3.9 g/dL (3.2-5.5); ALBUMIN/GLOBULIN RATIO 1.2 (1.0-2.2); BILIRUBIN,TOTAL 0.6 mg/dL (0.2-1.0); CALCIUM 8.7 mg/dL (8.5-10.3); PHOSPHORUS 5.1 mg/dL (2.5-4.6); POTASSIUM 4.1 mmol/L (3.5-5.0); TOTAL PROTEIN 7.2 g/dL (6.7-8.2)
[2021-06-26 09:39] LABS: INR 1.2 (0.8-1.2); PT - PROTHROMBIN TIME 13.1 secs (9.9-12.6)
[2021-06-26 09:45] LABS: D-DIMER 367.4 ng/mL (200.0-255.0)
[2021-06-26] MEDS ORDERED: FUROSEMIDE 40 MG/4 ML VIAL IVP STA (09:59)
[2021-06-26 10:33] LABS: B. PARAPERTUSSIS- RESP PCR PAN NOT DETECTED; B. PERTUSSIS- RESP PCR PANEL NOT DETECTED; C. PNEUMONIAE- RESP PCR PANEL NOT DETECTED; CORONAVIRUS 229E-RESP PCR NOT DETECTED; CORONAVIRUS HKU1-RESP PCR NOT DETECTED; CORONAVIRUS NL63-RESP PCR NOT DETECTED; CORONAVIRUS OC43-RESP PCR NOT DETECTED; HUMAN METAPNEUMOVIRUS NOT DETECTED; INFLUENZA A- RESP PCR PANEL NOT DETECTED; INFLUENZA B - RESP PCR PANEL NOT DETECTED; M. PNEUMONIAE- RESP PCR PANEL NOT DETECTED; PARAINFLUENZA VIRUS 1 NOT DETECTED; PARAINFLUENZA VIRUS 2 NOT DETECTED; PARAINFLUENZA VIRUS 3 NOT DETECTED; PARAINFLUENZA VIRUS 4 NOT DETECTED; RHINOVIRUS/ENTEROVIRUS NOT DETECTED; RSV- RESP PCR PANEL NOT DETECTED; SARS-CoV-2 -RESP PCR PANEL NOT DETECTED
--- NOTE | 2021-06-26 11:18 | CT Report ---
PROCEDURE: ANGIO CHEST W/WO INDICATIONS: pe protocol, dyspnea, poss PH on cxr CONTRAST: IV CONTRAST: Optiray 320 ml: 80 PO CONTRAST: *NO PO CONTRAST TECHNIQUE: After the administration of intravenous contrast, 5 mm thick sections acquired from the pulmonary api leidy to the posterior costophrenic angles. 7 mm thick coronal MIP reformats were acquired. For radia tion dose reduction, the following was used: automated exposure control, adjustment of mA and/or kV according to patient size. COMPARISON: None FINDINGS: CHEST: Lungs: Diffuse peribronchial cuffing suggestive of nonspecific bronchitis and/or reactive airways dis ease. Patchy streaky opacities seen in both lung bases without definite focal consolidation. Ill-defi roxanne subpleural nodularity measuring 9-10 mm seen in the right middle lobe as well as the left lower l obe. Please see montage image for exact locations. Recommend follow-up with CT chest in 3 months give n the absence of prior studies, to exclude underlying pulmonary nodule. This could represent nodular atelectasis/scarring. Pleura: Bilateral pleural effusions, moderate on the right and small on the left. No pneumothorax. Heart: Enlarged. Moderate to severe coronary atherosclerosis. No pericardial effusion. There is reflu x of contrast into the hepatic veins and IVC keeping with decreased cardiac output. Lymph nodes: Scattered shotty subcentimeter hilar and mediastinal lymph nodes Thyroid: Not well seen Aorta: Normal in size. Scattered atheromatous calcifications seen in the aorta. Pulmonary arteries: No intraluminal filling defects seen. Central pulmonary arteries appear enlarged raising possibility of pulmonary arterial hypertension. Esophagus: Moderate hiatal hernia noted Bones: Diffuse spondolytic changes and facet arthropathy. No compression fracture. Upper abdomen: Left renal calculus measuring 3 mm. IMPRESSION: No evidence of pulmonary embolism. No aortic dissection. Bilateral small-moderate pleural effusions, right larger than left with adjacent atelectasis. Diffuse peribronchial cuffing suggestive of nonspecific bronchitis and/or reactive airways disease. Possible areas of subpleural nodular scarring/atelectasis involving the right middle lobe and left lo wer lobe although recommend follow-up with [address] chest given the absence of any prior s tudies for comparison purposes. Additional chronic and incidental findings as above. CLINICAL RECOMMENDATION STATEMENTS: In patients <35 years with an ITN detected on CT, MRI, or extrathyroidal ultrasound, the Committee re commends further evaluation with dedicated thyroid ultrasound if the nodule is "e1 cm and has no susp icious imaging features, and if the patient has normal life expectancy. In patients "e35 years with an ITN detected on CT, MRI, or extrathyroidal ultrasound, the Committee r ecommends further evaluation with dedicated thyroid ultrasound if the nodule is "e1.5 cm and has no s uspicious imaging features, and if the patient has normal life expectancy. (ACR, 2014) Reviewed by: Rick Doshi MD on 06/26/2021 11:16 AM PDT Approved by: Rick Doshi MD on 06/26/2021 11:16 AM PDT Station ID: [id number]
[2021-06-26] MEDS ORDERED: ACETAMINOPHEN 325 MG TABLET PO PRN (11:30)
[2021-06-26] MEDS ORDERED: ONDANSETRON 4 MG/2 ML VIAL IVP PRN (11:30)
--- NOTE | 2021-06-26 11:42 | HISTORY & PHYSICAL EXAMINATION ---
Chief Complaint - Chief Complaint Chief Complaint: SOB History of Present Illness - Admitted From Admitted From:: medical floor - History Obtained From Records Reviewed: [facility], ER notes History obtained from: pt - History of Present Illness HPI Comment/Other: This is an 85-year-old woman with Past medical history significant for HTN, CKD, HLD, CHF, COPD, Pulmonary hypertension, chronic SOB, DM2, osteoarthritis, who present ER complain of shortness of breath and weakness. She report she has been sick for 6 days. Her main complaint is shortness of breath. she report mild cough but denies fever, chill, or chest pain. she report her COVID test was negative, and she has been vaccinated. Patient went to see her PCP, patient had x-ray done 8 days ago which show basilar plate atelectasis versus scar. when pt was arrival, pt was found to have 65% on room air. Today chest x-ray show congestive heart failure exacerbation, probably pulmonary artery hypertension. Patient also had a CTA of the chest which show no evidence of pulmonary embolism, no aortic dissection, Bilaterally small to moderate pleural effusions, and right larger than left with an adjacent atelectasis, Diffuse peribronchial cuffing suggestive of nonspecific bronchitis or reactive airway disease. Routine laboratory tests that show patient had slightly elevated troponin at 50, BNP is 740. EKG show atrial fibrillation with heart rate at 101. Given above pt's medical conditions, Medical team was consulted for admission of this patient. Discussed the care goal with patient, patient clearly state she hope to be DNR History - Past Medical History Cardiovascular: reports: Congestive heart failure, Hypertension, High cholesterol Respiratory: reports: COPD, Shortness of breath Neuro: reports: None Endocrine/Autoimmune: reports: Type 2 diabetes GI: reports: None [employer]: reports: None : reports: None HEENT: reports: None Psych: reports: None Musculoskeletal: reports: Osteoarthritis Derm: reports: None MRSA Hx?: Yes - Past Surgical History General: reports: Colonoscopy /[employer]: reports: Hysterectomy Cardiovascular: reports: Coronary stent - Family & Social History Family History Comment/Other: pt is living at [facility]. pt had three children, two sons and one daughter. Daughter is living with her now because her was from three monthsa ago. Social History Notes: pt report she quitted cigarette smoking 10 yrs ago. she denies alcohol and drug abuse. - POLST Patient has POLST: No Meds/Allgy - Home Medications Home Medications: Ambulatory Orders Medication Instructions Recorded Confirmed Aspirin [Aspir 81] 81 mg PO DAILY 01/08/15 06/26/21 Carvedilol [Coreg] 12.5 mg PO BID 01/08/15 06/26/21 Glipizide [Glipizide ER] 2.5 mg PO DAILY 01/08/15 06/26/21 Levothyroxine [Synthroid] 75 mcg PO QDAC 01/08/15 06/26/21 Rosuvastatin Calcium [Crestor] 20 mg PO QPM 01/08/15 06/26/21 Gabapentin 300 mg PO TID 01/09/19 06/26/21 Amlodipine Besylate 10 mg PO DAILY #20 tablet 02/28/19 06/26/21 - Allergies Allergies/Adverse Reactions: Allergies Allergy/AdvReac Type Severity Reaction Status Date / Time No Known Drug Allergies Allergy Verified 06/26/21 08:10 Review of Systems - Constitutional Constitutional: reports: Weakness. denies: Fever, Chills - Eyes Eyes: denies: Pain - Ears, Nose & Throat Ears, Nose & Throat: denies: Ear pain, Nosebleeds - Cardiovascular Cariovascular: reports: Exertional dyspnea, Decr. exercise tolerance. denies: Palpitations, Chest pain - Respiratory Respiratory: reports: Cough, SOB at rest, SOB with exertion. denies: Sputum production, Wheezing - Gastrointestinal Gastrointestinal: denies: Abdominal pain, Diarrhea, Nausea, Vomiting - Genitourinary Genitourinary: denies: Dysuria - Musculoskeletal Musculoskeletal: denies: Muscle pain - Integumentary Integumentary: denies: Rash - Neurological Neurological: reports: General weakness. denies: Focal weakness, Headache, Abnormal gait, Seizures, Incoordination, Slurred speech - Psychiatric Psychiatric: denies: Depression Exam - Vital Signs Vital Signs: Vital Signs x48h Temp Pulse Resp BP Pulse Ox 06/26/21 11:00 36.7 C 85 14 127/80 98 06/26/21 10:35 91 22 128/67 98 06/26/21 10:00 36.4 C L 93 10 L 140/64 H 98 06/26/21 09:30 36.3 C L 82 11 L 137/79 H 98 10/28/21 09:10 36.7 C 96 24 119/85 H 96 06/26/21 08:40 98 20 147/87 H 98 06/26/21 07:58 36.5 C 100 24 142/98 H 65 L - Physical Exam General Appearance: positive: Alert, Mild distress. negative: Lethargic Eyes Bilateral: positive: Normal inspection, PERRL, No lid inflammation ENT: positive: ENT inspection nml, No signs of dehydration Neck: positive: Nml inspection, Trachea midline. negative: Thyromegaly, Tracheal deviation Respiratory: positive: Chest non-tender, Rales. negative: Wheezes Cardiovascular: positive: Regular rate & rhythm, No murmur, Tachycardia. negative: Bradycardia, Systolic murmur, Diastolic murmur Peripheral Pulses: positive: 2+ Abdomen: positive: Non-tender, Nml bowel sounds, No distention. negative: Tenderness Back: positive: Nml inspection Skin: positive: Color nml, Warm, Dry, Other (right sacral area has stage 2 pressure ulcer, size 2X1.5cm size). negative: Cyanosis Extremities: positive: Non-tender, Nml appearance Neurologic/Psychiatric: positive: Oriented x3, Sensation nml. negative: Sensory loss, Facial droop, Slurred/abnml speech Sepsis Event Note (H) - Evaluation Current Stage of Sepsis: Ruled out Conclusion/Plan - Problem List (1) Acute respiratory failure with hypoxia Conclusion/Plan: patient's oxygen saturation was down to 65% on room air At admission. CTA show mild to moderate pleural effusion, right more than left. Chest x-ray also show congestive heart failure exacerbation, Patient also had elevated BNP. It is mainly likely cause by patient's CHF exacerbation, fluid overloaded, Also patient had a history of pulmonary hypertension, COPD, Plus bronchitis in the CTA imaging study. We will have supplemental oxygen as needed, Lasix for diuretics, Breathing treatment for COPD, Low dosage of azithromycin. We will order echo (2) CHF exacerbation Conclusion/Plan: CTA show mild to moderate pleural effusion, right more than left. Chest x-ray also show congestive heart failure exacerbation, Patient also had elevated BNP. Echo study on today show patient had EF 40 to 45%, RVSP at 50 mmHG with Mild to moderate Right ventricular pressure abnormal. Patient was already given intravenous Lasix in the ER, we will continue. Fluids restriction, daily weight. I&Os, Continue home coreg, Lipitor, Add low dosage lisinopril, Patient may follow-up with building architect as outpatient. (3) Atrial fibrillation Conclusion/Plan: Patient had new a fibrillation in the EKG. Patient denies palpitation, Or chest pain. Heart rate is at 101. We will resume home Coreg, add metoprolol as needed, Resume home aspirin, Continue telemetry and vital signs monitor (4) Elevated troponin Conclusion/Plan: Patient had elevated troponin 50, patient denies chest pain, Patient had a new atrial fibrillation in EKG. 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 We will continue check troponin, Resume home aspirin, And coreg, Telemetry and vital signs monitor (5) Pulmonary hypertension Conclusion/Plan: Patient has a history of pulmonary hypertension, echo show patient had RVSP 50 mmHg, This is likely the reason why patient had a chronic shortness of breathing in the home. Patient may follow-up with her building architect as out-pt. (6) COPD (chronic obstructive pulmonary disease) Conclusion/Plan: Patient has history of COPD, Patient is likely no COPD exacerbation. add Duoneb as needed, Continue supplemental oxygen as needed (7) Diabetes mellitus Conclusion/Plan: Patient did not take insulin for her diabetic At home. Patient had a CTA. We will start with sliding scale with insulin, Glucose check, A1c check (8) HTN (hypertension) Conclusion/Plan: Stable, we will resume patient's home coreg, with intravenous Lasix, Continue vital signs monitor (9) CKD (chronic kidney disease) stage 3, GFR 30-59 ml/min Conclusion/Plan: Patient has history of CKD, today her creatinine is 1.0. 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
[2021-06-26] MEDS ORDERED: AZITHROMYCIN 250 MG TABLET PO STA ×2 (12:01→12:44)
[2021-06-26] MEDS ORDERED: IPRATROPIUM/ALBUTEROL 3 ML NEB INH PRN (12:08)
[2021-06-26] MEDS ORDERED: METOPROLOL 5 MG/5 ML VIAL IVP PRN (13:16)
[2021-06-26] MEDS: INSULIN ASPART 300 UNIT/3 ML PEN SUBQ SCH ×3 (13:29→21:29)
[2021-06-26] MEDS: GABAPENTIN 100 MG CAPSULE PO SCH ×2 (13:42→21:28)
[2021-06-26] MEDS: ASPIRIN CHEW 81 MG TABLET PO SCH (13:42)
[2021-06-26] MEDS: carvediloL 12.5 MG TABLET PO SCH ×2 (13:43→21:29)
--- NOTE | 2021-06-26 14:06 | PHARMACY PROGRESS NOTE ---
- Best Possible Medication History Admit Date and Time: 06/26/21 1130 Processed by: Pharmacy Medication History completed: Yes Secondary Source(s): Physician records, Pharmacy records, Insurance records As the person ultimately responsible for medication therapy, providers are able to order a medication from an existing home medication list in [facility] via the "Reconcile Routine" prior to Confirmation of that medication by academic support coordinator. Such practice is discouraged except when the physician, in their clinical judgment, deems that a medical need exists for a medication without regard to previous use.
[2021-06-26] MEDS: SODIUM CHLORIDE FLUSH 0.9% 10 ML SYRINGE IVP SCH (17:46)
[2021-06-26] MEDS: FUROSEMIDE 40 MG/4 ML VIAL IVP SCH (17:46)
[2021-06-26] MEDS ORDERED: carvediloL 12.5 MG TABLET PO SCH (21:00)
[2021-06-26] MEDS: ATORVASTATIN 10 MG TABLET PO SCH (21:27)
[2021-06-27] MEDS: SODIUM CHLORIDE FLUSH 0.9% 10 ML SYRINGE IVP SCH ×3 (01:30→16:35)
[2021-06-27] MEDS: FUROSEMIDE 40 MG/4 ML VIAL IVP SCH (05:16)
[2021-06-27] MEDS: GABAPENTIN 100 MG CAPSULE PO SCH ×3 (05:16→20:39)
[2021-06-27 06:10] LABS: BASOPHILS % (AUTO) 0.1 %; EOSINOPHILS # (AUTO) 0.1 10^3/uL (0.0-0.7); EOSINOPHILS % (AUTO) 1.4 %; HCT - HEMATOCRIT 40.8 % (37.0-47.0); HGB - HEMOGLOBIN 12.5 g/dL (12.0-16.0); LYMPHOCYTES # (AUTO) 0.8 10^3/uL (1.5-3.5); LYMPHOCYTES % (AUTO) 9.5 %; MEAN CORPUSCULAR HEMOGLOBIN 31.2 pg (27.0-31.0); MEAN CORPUSCULAR HGB CONC 30.6 g/dL (32.0-36.0); MEAN CORPUSCULAR VOLUME 101.7 fL (81.0-99.0); MEAN PLATELET VOLUME 10.6 fL (7.9-10.8); MONOCYTES # (AUTO) 0.6 10^3/uL (0.0-1.0); MONOCYTES % (AUTO) 6.8 %; NEUTROPHILS # (AUTO) 7.1 10^3/uL (1.5-6.6); NEUTROPHILS % (AUTO) 81.6 %; NRBC ABSOLUTE COUNT (AUTO) 0.06 x10^3/uL; NUCLEATED RED BLOOD CELLS AUTO 0.7 /100WBC; PLT - PLATELET COUNT 178 10^3/uL (130-450); RED BLOOD COUNT 4.01 10^6/uL (4.20-5.40); RED CELL DISTRIBUTION WIDTH 16.2 % (12.0-15.0); WHITE BLOOD COUNT 8.7 x10^3/uL (4.8-10.8)
[2021-06-27 06:20] LABS: CALCIUM 8.5 mg/dL (8.5-10.3); POTASSIUM 3.7 mmol/L (3.5-5.0)
[2021-06-27] MEDS: LEVOTHYROXINE 75 MCG TABLET PO SCH (06:37)
[2021-06-27] MEDS: INSULIN ASPART 300 UNIT/3 ML PEN SUBQ SCH ×4 (08:03→20:40)
[2021-06-27] MEDS: AZITHROMYCIN 250 MG TABLET PO SCH (09:01)
[2021-06-27] MEDS: lisinopriL 5 MG TABLET PO SCH (09:01)
[2021-06-27] MEDS: ENOXAPARIN 40 MG/0.4 ML SYRINGE SUBQ SCH (09:01)
[2021-06-27] MEDS: SODIUM CHLORIDE FLUSH 0.9% 10 ML SYRINGE IVP PRN (09:01)
[2021-06-27] MEDS: ASPIRIN CHEW 81 MG TABLET PO SCH (09:01)
[2021-06-27] MEDS: carvediloL 12.5 MG TABLET PO SCH ×2 (09:01→20:39)
[2021-06-27 09:09] LABS: ESTIMATED AVERAGE GLUCOSE 123 mg/dL (70-100); HEMOGLOBIN A1c% 5.9 % (4.27-6.07)
--- NOTE | 2021-06-27 11:24 | PROVIDER PROGRESS NOTE ---
Assessment/Plan - Problem List (1) Acute respiratory failure with hypoxia Assessment/Plan: 1029, improved, patient had 94% oxygen saturation on 4 L oxygen now. Patient had mild to moderate bilaterally pleural effusion, right more than left. We will continue diuretics, continue supplemental oxygen As needed patient's oxygen saturation was down to 65% on room air At admission. CTA show mild to moderate pleural effusion, right more than left. Chest x-ray also show congestive heart failure exacerbation, Patient also had elevated BNP. It is mainly likely cause by patient's CHF exacerbation, fluid overloaded, Also patient had a history of pulmonary hypertension, COPD, Plus bronchitis in the CTA imaging study. We will have supplemental oxygen as needed, Lasix for diuretics, Breathing treatment for COPD, Low dosage of azithromycin. We will order echo (2) CHF exacerbation Conclusion/Plan: 1029, Patient had negative balance 1100 fluids after diuretics, Creatinine remain 1.0. BNP is trending down, Patient had a 94% oxygen saturation on 4 L oxygen. pt is improved. Patient's blood pressure is tolerated diuretics now. You may continue 40 mg Lasix bid on today, may be adjustable to Lasix dosage according to patient conditions. CTA show mild to moderate pleural effusion, right more than left. Chest x-ray also show congestive heart failure exacerbation, Patient also had elevated BNP. Echo study on today show patient had EF 40 to 45%, RVSP at 50 mmHG with Mild to moderate Right ventricular pressure abnormal. Patient was already given intravenous Lasix in the ER, we will continue. Fluids restriction, daily weight. I&Os, Continue home coreg, Lipitor, Add low dosage lisinopril, Patient may follow-up with motor runner as outpatient. (3) Atrial fibrillation Conclusion/Plan: 1029, heart rate is controlled. pt has bruise over her body, falls at home. Use aspirin as blood thinner now, continue use Coreg and Continue telemetry. Patient had new a fibrillation in the EKG. Patient denies palpitation, Or chest pain. Heart rate is at 101. We will resume home Coreg, add metoprolol as needed, Resume home aspirin, Continue telemetry and vital signs monitor (4) Elevated troponin Conclusion/Plan: 1029, troponin now is a slightly reduced 45, It is likely demand ischemia with slightly elevated troponin. Continue telemetry and vital signs monitor Patient had elevated troponin 50, patient denies chest pain, Patient had a new atrial fibrillation in EKG. 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 We will continue check troponin, Resume home aspirin, And coreg, Telemetry and vital signs monitor (5) Pulmonary hypertension Conclusion/Plan: Patient has a history of pulmonary hypertension, echo show patient had RVSP 50 mmHg, This is likely the reason why patient had a chronic shortness of breathing in the home. Patient may follow-up with her motor runner as out-pt. (6) COPD (chronic obstructive pulmonary disease) Conclusion/Plan: Patient has history of COPD, Patient is likely no COPD exacerbation. add Duoneb as needed, Continue supplemental oxygen as needed (7) Diabetes mellitus Conclusion/Plan: Patient did not take insulin for her diabetic At home. Patient had a CTA. We will start with sliding scale with insulin, Glucose check, A1c check (8) HTN (hypertension) Conclusion/Plan: Stable, we will resume patient's home coreg, with intravenous Lasix, Continue vital signs monitor (9) CKD (chronic kidney disease) stage 3, GFR 30-59 ml/min Conclusion/Plan: Patient has history of CKD, today her creatinine is 1.0. 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 At this moment, we will consult with PT and OT. - Current Meds Current Meds: Current Medications Generic Name Dose Route Start Last Admin Trade Name Freq PRN Reason Stop Dose Admin Aspirin 81 mg 06/26/21 12:00 06/27/21 09:01 Aspirin Chew 81 Mg Tablet PO 81 mg DAILY [facility]US Administration Atorvastatin Calcium 20 mg 06/26/21 21:00 06/26/21 21:27 Atorvastatin 10 Mg Tablet PO 20 mg QPM [facility] Administration Azithromycin 250 mg 06/27/21 09:00 06/27/21 09:01 Azithromycin 250 Mg Tablet PO 250 mg DAILY [facility]US Administration Carvedilol 12.5 mg 06/26/21 13:08 06/27/21 09:01 Carvedilol 12.5 Mg Tablet PO 12.5 mg BID [facility]US Administration Enoxaparin Sodium 40 mg 06/27/21 09:00 06/27/21 09:01 Enoxaparin 40 Mg/0.4 Ml Syringe SUBQ 40 mg DAILY [facility] Administration Furosemide 40 mg 06/26/21 16:00 06/27/21 05:16 Furosemide 40 Mg/4 Ml Vial IVP 40 mg BIDDIURETIC [facility]US Administration Gabapentin 100 mg 06/26/21 14:00 06/27/21 05:16 Gabapentin 100 Mg Capsule PO 100 mg TID [facility]US Administration Insulin Aspart 1 - 9 unit 06/26/21 12:00 06/27/21 08:03 Insulin Aspart 300 Unit/3 Ml Pen SUBQ Not Given 0800,1200,1700,2100 [facility] Protocol Levothyroxine Sodium 75 mcg 06/27/21 07:00 06/27/21 06:37 Levothyroxine 75 Mcg Tablet PO 75 mcg QDAC [facility] Administration Lisinopril 5 mg 06/27/21 09:00 06/27/21 09:01 Lisinopril 5 Mg Tablet PO 5 mg DAILY [facility]US Administration Sodium Chloride 10 ml 06/26/21 11:30 06/27/21 09:01 Sodium Chloride Flush 0.9% 10 Ml Syringe IVP 10 ml PRN PRN Administration NEEDED PER PROVIDER ORDERS Sodium Chloride 10 ml 06/26/21 17:00 06/27/21 05:16 Sodium Chloride Flush 0.9% 10 Ml Syringe IVP 10 ml 0100,0900,1700 [facility] Administration - Lab Result Fish Bone Diagrams: 06/27/21 06:03 06/27/21 06:03 - Additional Planning My Orders: My Active Orders 06/26/21 Lunch Carb-controlled Diet [DIET] 06/26/21 11:30 Activity Orders [RC] Q2HR IO [RC] IOSHIFT Initiate Bowel Care Protocol [RC] .protocol Initiate Line Care Protocol [RC] QSHIFT Initiate Personal Care Protoco [RC] .protocol Telemetry- [RC] Q4HR Vital Signs [RC] 0800,1600,0000 Acetaminophen [Tylenol] 650 mg PO Q4HR PRN Ondansetron Inj [Zofran Inj] 4 mg IVP Q6HR PRN Sodium Chloride Flush 0.9% [Normal Saline Flush 0.9%] 10 ml IVP PRN PRN Code Status [OTHERS] Routine Condition of Patient [OTHERS] Routine DVT Prophylaxis [OTHERS] Routine 06/26/21 11:32 IV Insert [RC] .ONCE SCDs [RC] QSHIFT 06/26/21 11:33 Echo Transthoracic Complete [ECHO] Stat 06/26/21 11:34 Fluid Restriction [RC] ONCE 06/26/21 11:37 Blood Glucose Checks - Eating [RC] 0800,1200,1700,2100 Initiate Hypoglycemia Protocol [RC] .protocol 06/26/21 12:00 Aspirin Chewable [[facility] [place] Aspirin] 81 mg PO DAILY Insulin Aspart [NovoLOG] 1 - 9 unit SUBQ 0800,1200,1700,2100 06/26/21 12:08 Ipratropium/Albuterol [Duoneb] 3 ml INH Q4HR PRN 06/26/21 13:05 Miscellaenous Nursing Order [RC] DAILY Wound Care - MAC [RC] .ONCE 06/26/21 13:06 Turn and Reposition [RC] PRN 06/26/21 13:08 carvediloL [Coreg] 12.5 mg PO BID 06/26/21 13:12 Daily Weight [RC] 0600 06/26/21 13:16 Metoprolol Inj [Lopressor Inj] 5 mg IVP Q6H PRN 06/26/21 13:29 Code Status [OTHERS] Routine 06/26/21 14:00 Gabapentin [Neurontin] 100 mg PO TID 06/26/21 14:51 Nutrition Consult [CONS] Routine 06/26/21 16:00 FUROSEMIDE INJ 40mg VIAL [LASIX INJ 40 mg VIAL] 40 mg IVP BIDDIURETIC 06/26/21 17:00 Sodium Chloride Flush 0.9% [Normal Saline Flush 0.9%] 10 ml IVP 0100,0900,1700 06/26/21 21:00 Atorvastatin [Lipitor] 20 mg PO QPM 06/26/21 23:01 RT [Oxygen Therapy] [RC] .PRN 06/27/21 07:00 Levothyroxine [Synthroid] 75 mcg PO QDAC 06/27/21 09:00 Azithromycin [Zithromax] 250 mg PO DAILY Enoxaparin [Lovenox] 40 mg SUBQ DAILY lisinopriL [Zestril] 5 mg PO DAILY 06/28/21 05:00 BMP - BASIC METABOLIC PANEL [CHEM] DAILYLAB BNP - B-NATRIURETIC PEPTIDE [IAI] DAILYLAB CBC - COMP BLD CT W/AUTO DIFF [HEME] DAILYLAB 06/29/21 05:00 BMP - BASIC METABOLIC PANEL [CHEM] DAILYLAB BNP - B-NATRIURETIC PEPTIDE [IAI] DAILYLAB CBC - COMP BLD CT W/AUTO DIFF [HEME] DAILYLAB 06/30/21 05:00 BMP - BASIC METABOLIC PANEL [CHEM] DAILYLAB BNP - B-NATRIURETIC PEPTIDE [IAI] DAILYLAB CBC - COMP BLD CT W/AUTO DIFF [HEME] DAILYLAB 07/01/21 05:00 BMP - BASIC METABOLIC PANEL [CHEM] DAILYLAB BNP - B-NATRIURETIC PEPTIDE [IAI] DAILYLAB CBC - COMP BLD CT W/AUTO DIFF [HEME] DAILYLAB Subjective - Subjective Patient Reports: Feeling Better, Resting Comfortably Objective Vital Signs: Vital Signs - 24 hr 06/26/21 06/26/21 06/26/21 11:30 12:00 12:30 Temperature 36.6 C 36.4 C L 36.6 C Heart Rate 84 94 81 Heart Rate [ Brachial] Heart Rate [ Monitoring electrodes] Respiratory 15 14 14 Rate Blood Pressure 131/71 H 132/79 H 131/79 H Blood Pressure [Right Brachial artery] O2 Saturation 97 97 98 06/26/21 06/26/21 06/26/21 14:45 15:39 18:23 Temperature 36.5 C 36.5 C Heart Rate Heart Rate [ 80 Brachial] Heart Rate [ 97 Monitoring electrodes] Respiratory 18 16 18 Rate Blood Pressure Blood Pressure 117/91 H 119/68 [Right Brachial artery] O2 Saturation 92 92 96 06/26/21 06/27/21 06/27/21 20:05 00:40 05:41 Temperature 36.6 C 36.7 C 37.3 C Heart Rate Heart Rate [ 85 78 89 Brachial] Heart Rate [ Monitoring electrodes] Respiratory 20 21 21 Rate Blood Pressure Blood Pressure 112/66 95/54 L 109/55 L [Right Brachial artery] O2 Saturation 94 94 90 L 06/27/21 07:28 Temperature 36.7 C Heart Rate Heart Rate [ 94 Brachial] Heart Rate [ Monitoring electrodes] Respiratory 18 Rate Blood Pressure Blood Pressure 108/57 L [Right Brachial artery] O2 Saturation 94 Oxygen O2 Source Nasal cannula Oxygen Flow Rate 4 I&O (Last 24 Hrs): Intake and Output Totals x24h 06/25/21 06/26/21 06/27/21 23:59 23:59 23:59 Intake Total 280 195 Output Total 1400 500 Balance -1120 -305 General: Alert, Oriented x3, Cooperative, No acute distress HEENT: Atraumatic Lymphatic: no adenopathy Neuro: Alert, Non Focal, Oriented Times 3 Cardiovascular: Regular rate, Normal S1, Normal S2 Respiratory: Chest non-tender, No respiratory distress Abdomen: Normal bowel sounds, Soft Extremities: Normal pulses - Results Results: Laboratory Results WBC 8.7 x10^3/uL (4.8-10.8) 06/27/21 06:03 RBC 4.01 10^6/uL (4.20-5.40) L 06/27/21 06:03 Hgb 12.5 g/dL (12.0-16.0) 06/27/21 06:03 Hct 40.8 % (37.0-47.0) 06/27/21 06:03 MCV 101.7 fL (81.0-99.0) H 06/27/21 06:03 MCH 31.2 pg (27.0-31.0) H 06/27/21 06:03 MCHC 30.6 g/dL (32.0-36.0) L 06/27/21 06:03 RDW 16.2 % (12.0-15.0) H 06/27/21 06:03 Plt Count 178 10^3/uL (130-450) 06/27/21 06:03 MPV 10.6 fL (7.9-10.8) 06/27/21 06:03 Neut # (Auto) 7.1 10^3/uL (1.5-6.6) H 06/27/21 06:03 Lymph # (Auto) 0.8 10^3/uL (1.5-3.5) L 06/27/21 06:03 [place] # (Auto) 0.6 10^3/uL (0.0-1.0) 06/27/21 06:03 Eos # (Auto) 0.1 10^3/uL (0.0-0.7) 06/27/21 06:03 Baso # (Auto) 0.0 10^3/uL (0.0-0.1) 06/27/21 06:03 Absolute Nucleated RBC 0.06 x10^3/uL 06/27/21 06:03 Nucleated RBC % 0.7 /100WBC 06/27/21 06:03 PT 13.1 secs (9.9-12.6) H 06/26/21 09:08 INR 1.2 (0.8-1.2) 06/26/21 09:08 D-Dimer 367.4 ng/mL (200.0-255.0) H 06/26/21 09:08 Sodium 145 mmol/L (135-145) 06/27/21 06:03 Potassium 3.7 mmol/L (3.5-5.0) 06/27/21 06:03 Chloride 99 mmol/L (101-111) L 06/27/21 06:03 Carbon Dioxide 34 mmol/L (21-32) H 06/27/21 06:03 Anion Gap 12.0 (6-13) 06/27/21 06:03 BUN 34 mg/dL (6-20) H 06/27/21 06:03 Creatinine 1.0 mg/dL (0.4-1.0) 06/27/21 06:03 Estimated GFR (MDRD) 53 (>89) L 06/27/21 06:03 Glucose 109 mg/dL (70-100) H 06/27/21 06:03 Estimat Average Glucose 123 mg/dL (70-100) H 06/27/21 06:03 Hemoglobin A1c % 5.9 % (4.27-6.07) 06/27/21 06:03 Calcium 8.5 mg/dL (8.5-10.3) 06/27/21 06:03 Phosphorus 5.1 mg/dL (2.5-4.6) H 06/26/21 09:08 Total Bilirubin 0.6 mg/dL (0.2-1.0) 06/26/21 09:08 AST 19 IU/L (10-42) 06/26/21 09:08 ALT 27 IU/L (10-60) 06/26/21 09:08 Alkaline Phosphatase 70 IU/L (42-121) 06/26/21 09:08 Troponin I High Sens 45.5 ng/L (2.3-14.8) H* 06/26/21 15:01 B-Natriuretic Peptide 588 pg/mL (5-100) H 06/27/21 06:03 Total Protein 7.2 g/dL (6.7-8.2) 06/26/21 09:08 Albumin 3.9 g/dL (3.2-5.5) 06/26/21 09:08 Globulin 3.3 g/dL (2.1-4.2) 06/26/21 09:08 Albumin/Globulin Ratio 1.2 (1.0-2.2) 06/26/21 09:08 Lipase 27 U/L (22-51) 06/26/21 09:08 TSH 5.11 uIU/mL (0.34-5.60) 06/26/21 09:08 Nasal Adenovirus (PCR) NOT DETECTED 06/26/21 09:15 Nasal B. parapertussis DNA (PCR) NOT DETECTED 06/26/21 09:15 Nasal Coronavir 229E PCR NOT DETECTED 06/26/21 09:15 Nasal Coronavir HKU1 PCR NOT DETECTED 06/26/21 09:15 Nasal Coronavir NL63 PCR NOT DETECTED 06/26/21 09:15 Nasal Coronavir OC43 PCR NOT DETECTED 06/26/21 09:15 Nasal Enterovir/Rhinovir PCR NOT DETECTED 06/26/21 09:15 Nasal Influenza B PCR NOT DETECTED 06/26/21 09:15 Nasal Influenza A PCR NOT DETECTED 06/26/21 09:15 Nasal Parainfluen 1 PCR NOT DETECTED 06/26/21 09:15 Nasal Parainfluen 2 PCR NOT DETECTED 06/26/21 09:15 Nasal Parainfluen 3 PCR NOT DETECTED 06/26/21 09:15 Nasal Parainfluen 4 PCR NOT DETECTED 06/26/21 09:15 Nasal RSV (PCR) NOT DETECTED 06/26/21 09:15 Nasal B.pertussis DNA PCR NOT DETECTED 06/26/21 09:15 Nasal C.pneumoniae (PCR) NOT DETECTED 06/26/21 09:15 Shine Human Metapneumo PCR NOT DETECTED 06/26/21 09:15 Nasal M.pneumoniae (PCR) NOT DETECTED 06/26/21 09:15 Nasal SARS-CoV-2 (PCR) NOT DETECTED 06/26/21 09:15 - Procedures Procedures: Procedures CARPAL TUNNEL RELEASE (01/14/15) REPLACEMENT OF LEFT LENS WITH SYNTH SUB, PERC APPROACH (06/23/18) REPLACEMENT OF RIGHT LENS WITH SYNTH SUB, PERC APPROACH (07/28/18) Sepsis Event Note (H) - Evaluation Current Stage of Sepsis: Ruled out ABX Reporting Has patient been on IV antibiotics over the past 48 hours?: No Current Medications - Current Medications Current Medications: Active Medications Acetaminophen (Acetaminophen 325 Mg Tablet) 650 mg PO Q4HR PRN PRN Reason: Pain 1 to 4 Albuterol/Ipratropium (Ipratropium/Albuterol 3 Ml Neb) 3 ml INH Q4HR PRN PRN Reason: Wheezing Aspirin (Aspirin Chew 81 Mg Tablet) 81 mg PO DAILY [facility] Last Admin: 06/27/21 09:01 Dose: 81 mg Documented by: Atorvastatin Calcium (Atorvastatin 10 Mg Tablet) 20 mg PO QPM [facility] Last Admin: 06/26/21 21:27 Dose: 20 mg Documented by: Azithromycin (Azithromycin 250 Mg Tablet) 250 mg PO DAILY [facility] Last Admin: 06/27/21 09:01 Dose: 250 mg Documented by: Carvedilol (Carvedilol 12.5 Mg Tablet) 12.5 mg PO BID [facility] Last Admin: 06/27/21 09:01 Dose: 12.5 mg Documented by: Enoxaparin Sodium (Enoxaparin 40 Mg/0.4 Ml Syringe) 40 mg SUBQ DAILY [facility] Last Admin: 06/27/21 09:01 Dose: 40 mg Documented by: Furosemide (Furosemide 40 Mg/4 Ml Vial) 40 mg IVP BIDDIURETIC [facility] Last Admin: 06/27/21 05:16 Dose: 40 mg Documented by: Gabapentin (Gabapentin 100 Mg Capsule) 100 mg PO TID [facility] Last Admin: 06/27/21 05:16 Dose: 100 mg Documented by: Insulin Aspart (Insulin Aspart 300 Unit/3 Ml Pen) 1 - 9 unit SUBQ 0800,1200,17 00,2100 [facility]; Protocol Last Admin: 06/27/21 08:03 Dose: Not Given Documented by: Levothyroxine Sodium (Levothyroxine 75 Mcg Tablet) 75 mcg PO QDAC [facility] Last Admin: 06/27/21 06:37 Dose: 75 mcg Documented by: Lisinopril (Lisinopril 5 Mg Tablet) 5 mg PO DAILY [facility] Last Admin: 06/27/21 09:01 Dose: 5 mg Documented by: Metoprolol Tartrate (Metoprolol 5 Mg/5 Ml Vial) 5 mg IVP Q6H PRN PRN Reason: Tachycardia Ondansetron HCl (Ondansetron 4 Mg/2 Ml Vial) 4 mg IVP Q6HR PRN PRN Reason: Nausea / Vomiting Sodium Chloride (Sodium Chloride Flush 0.9% 10 Ml Syringe) 10 ml IVP PRN PRN PRN Reason: NEEDED PER PROVIDER ORDERS Last Admin: 06/27/21 09:01 Dose: 10 ml Documented by: Sodium Chloride (Sodium Chloride Flush 0.9% 10 Ml Syringe) 10 ml IVP 0100,0900,1700 [facility] Last Admin: 06/27/21 05:16 Dose: 10 ml Documented by: Aspirin [Aspir 81] 81 mg PO DAILY 01/08/15 Carvedilol [Coreg] 12.5 mg PO BID 01/08/15 Glipizide [Glipizide ER] 2.5 mg PO DAILY 01/08/15 Levothyroxine [Synthroid] 75 mcg PO QDAC 01/08/15 Rosuvastatin Calcium [Crestor] 20 mg PO QPM 01/08/15 Gabapentin 300 mg PO TID 01/09/19
[2021-06-27] MEDS: MULTIVITAMIN W/MINERALS TABLET PO SCH (12:22)
[2021-06-27] MEDS: ATORVASTATIN 10 MG TABLET PO SCH (20:39)
[2021-06-28] MEDS: SODIUM CHLORIDE FLUSH 0.9% 10 ML SYRINGE IVP SCH ×5 (00:35→21:07)
[2021-06-28 05:53] LABS: BASOPHILS % (AUTO) 0.1 %; EOSINOPHILS # (AUTO) 0.3 10^3/uL (0.0-0.7); EOSINOPHILS % (AUTO) 2.5 %; HCT - HEMATOCRIT 41.5 % (37.0-47.0); HGB - HEMOGLOBIN 12.5 g/dL (12.0-16.0); LYMPHOCYTES # (AUTO) 1.1 10^3/uL (1.5-3.5); LYMPHOCYTES % (AUTO) 10.3 %; MEAN CORPUSCULAR HEMOGLOBIN 30.9 pg (27.0-31.0); MEAN CORPUSCULAR HGB CONC 30.1 g/dL (32.0-36.0); MEAN CORPUSCULAR VOLUME 102.5 fL (81.0-99.0); MEAN PLATELET VOLUME 10.9 fL (7.9-10.8); MONOCYTES # (AUTO) 0.7 10^3/uL (0.0-1.0); MONOCYTES % (AUTO) 6.4 %; NEUTROPHILS # (AUTO) 8.6 10^3/uL (1.5-6.6); NEUTROPHILS % (AUTO) 80.2 %; NRBC ABSOLUTE COUNT (AUTO) 0.03 x10^3/uL; NUCLEATED RED BLOOD CELLS AUTO 0.3 /100WBC; PLT - PLATELET COUNT 178 10^3/uL (130-450); RED BLOOD COUNT 4.05 10^6/uL (4.20-5.40); RED CELL DISTRIBUTION WIDTH 15.9 % (12.0-15.0); WHITE BLOOD COUNT 10.7 x10^3/uL (4.8-10.8)
[2021-06-28 06:03] LABS: CALCIUM 8.3 mg/dL (8.5-10.3); CREATININE 0.9 mg/dL (0.4-1.0); POTASSIUM 3.6 mmol/L (3.5-5.0)
[2021-06-28] MEDS: GABAPENTIN 100 MG CAPSULE PO SCH ×3 (06:03→23:54)
[2021-06-28] MEDS: LEVOTHYROXINE 75 MCG TABLET PO SCH (06:03)
[2021-06-28] MEDS: ENOXAPARIN 40 MG/0.4 ML SYRINGE SUBQ SCH (09:02)
[2021-06-28] MEDS: FUROSEMIDE 20 MG/2 ML VIAL IVP SCH ×2 (09:03→16:39)
[2021-06-28] MEDS: lisinopriL 5 MG TABLET PO SCH (09:04)
[2021-06-28] MEDS: carvediloL 12.5 MG TABLET PO SCH ×2 (09:04→21:02)
[2021-06-28] MEDS: MULTIVITAMIN W/MINERALS TABLET PO SCH (09:04)
[2021-06-28] MEDS: ASPIRIN CHEW 81 MG TABLET PO SCH (09:04)
[2021-06-28] MEDS: AZITHROMYCIN 250 MG TABLET PO SCH (09:04)
[2021-06-28] MEDS: INSULIN ASPART 300 UNIT/3 ML PEN SUBQ SCH ×4 (10:30→21:08)
[2021-06-28] MEDS ORDERED: MORPHINE 2 MG/ML CARPUJECT IVP STA (12:20)
[2021-06-28] MEDS ORDERED: LEVALBUTEROL 1.25 MG/3 ML NEB INH STA (12:21)
[2021-06-28] MEDS ORDERED: LEVALBUTEROL 1.25 MG/3 ML NEB INH ONE (12:35)
--- NOTE | 2021-06-28 13:06 | XRAY Report ---
PROCEDURE: Chest 1 View X-Ray INDICATIONS: Worsening SOB TECHNIQUE: One view of the chest was acquired. COMPARISON: Chest regress and CT dated 06/26/2021 FINDINGS: Overlying EKG wires. Surgical changes and devices: None. Lungs and pleura: Small pleural effusions bilaterally. Interstitial and alveolar opacities worse at t he lung bases. There is cephalization of the pulmonary vasculature. Mediastinum: Mediastinal contours appear normal. Heart size is mildly enlarged. Vascular calcificat ions within the aorta. Bones and chest wall: No suspicious bony lesions. Overlying soft tissues appear unremarkable. IMPRESSION: Findings most consistent with fluid overload likely CHF given mild cardiomegaly. This includes inters titial and alveolar opacities suggestive of pulmonary edema and small bilateral pleural effusions. In fectious process not completely excluded. Reviewed by: Doron Batres DO on 06/28/2021 12:05 PM KYLEE Approved by: Doron Batres DO on 06/28/2021 12:05 PM KYLEE Station ID: [id number]
[2021-06-28 13:11] LABS: ABG BASE EXCESS 7.6 mmol/L (-2.0-3.0); ABG HCO3 36.9 mmol/L (22.0-26.0); ABG OXYGEN SATURATION 93 % (94-98); ABG PH 7.29 (7.35-7.45); ABG PO2 70 mmHg (80-100)
[2021-06-28 13:12] LABS: ALLEN TEST POSITIVE
[2021-06-28 13:16] LABS: ABG PCO2 79 mmHg (34-45); ABG TCO2 39.3 MMOL/L (21.0-29.0)
--- NOTE | 2021-06-28 13:46 | PROVIDER PROGRESS NOTE ---
Assessment/Plan - Problem List (1) Acute respiratory acidosis Assessment/Plan: The patient had visibly worsening air hunger in the early afternoon. She was using accessory muscles of respiration and respiratory rate increased to 36. ABG was done that showed she was failing, retaining CO2 and becoming acidotic. We will transfer the patient to the ICU to ventilate using BiPAP. Patient agreed to this but it was confirmed by calling her son and discussed with him (2) Acute respiratory failure with hypoxia Assessment/Plan: She continues to require supplemental oxygen for low oxygen saturations, treating CHF which is the underlying cause We will continue diuretics, continue supplemental oxygen (3) CHF exacerbation Conclusion/Plan: Echo showed patient has EF 40 to 45%, RVSP at 50 mmHG with mild to moderate Right ventricular abnormality Patient has negative balance after diuretics. BNP is trending down. Will continue 40 mg Lasix bid Follow daily weight. I&Os, Continue home coreg, Lipitor, low dosage lisinopril, Patient will need follow-up with cardiology as outpatient. (4) Atrial fibrillation Conclusion/Plan: Patient has new a fibrillation in the EKG. Patient denies palpitation or chest pain. Heart rate is less than 100. Pt has bruise on her body, falls at home. Uses aspirin as blood thinner now, Continue use Coreg and continue telemetry. (5) Elevated troponin Conclusion/Plan: Patient had elevated troponin 50>> 45, patient denies chest pain, has a new atrial fibrillation in EKG.Likely elevated but flat due to CHF. (6) Pulmonary hypertension Conclusion/Plan: Patient has a history of pulmonary hypertension, Echo showed patient has RVSP 50 mmHg, This is likely the reason why patient had a chronic shortness of breathing in the home. Patient should follow-up with a student finance specialist as out-pt. (7) COPD (chronic obstructive pulmonary disease) Conclusion/Plan: Patient has history of COPD, Patient is likely not in COPD exacerbation. Added Duoneb as needed, and today Xopenex prn Continue supplemental oxygen as needed (8) Diabetes mellitus Conclusion/Plan: Patient did not take insulin for her diabetes at home. Her A1c is 5.9 We started sliding scale with insulin, Glucose checks while here. (9) HTN (hypertension) Conclusion/Plan: Stable, we are continuing patient's home coreg, and with intravenous Lasix and ALIYAH, Continue vital signs monitor (10) CKD (chronic kidney disease) stage 3, GFR 30-59 ml/min Conclusion/Plan: Patient has history of CKD, here her creatinine is 1.0. We will follow while on diuretics for her fluid overloaded, will continue monitoring BMP daily (11) Hypothyroidism Conclusion/Plan: Her TSH is 5.11, will continue her home Synthroid dose. (12)weakness Patient presented with weakness, physical deconditioning. We initially consulted with PT and OT, but this will be cancelled as she went to ICU for BIPAP today. - Current Meds Current Meds: Current Medications Generic Name Dose Route Start Last Admin Trade Name Freq PRN Reason Stop Dose Admin Aspirin 81 mg 06/26/21 12:00 06/28/21 09:04 Aspirin Chew 81 Mg Tablet PO 81 mg DAILY VENUS Administration Atorvastatin Calcium 20 mg 06/26/21 21:00 06/27/21 20:39 Atorvastatin 10 Mg Tablet PO 20 mg QPM VENUS Administration Azithromycin 250 mg 06/27/21 09:00 06/28/21 09:04 Azithromycin 250 Mg Tablet PO 250 mg DAILY VENUS Administration Carvedilol 12.5 mg 06/26/21 13:08 06/28/21 09:04 Carvedilol 12.5 Mg Tablet PO 12.5 mg BID VENUS Administration Enoxaparin Sodium 40 mg 06/27/21 09:00 06/28/21 09:02 Enoxaparin 40 Mg/0.4 Ml Syringe SUBQ 40 mg DAILY VENUS Administration Furosemide 20 mg 06/28/21 09:00 06/28/21 09:03 Furosemide 20 Mg/2 Ml Vial IVP 20 mg BIDDIURETIC VENUS Administration Gabapentin 100 mg 06/26/21 14:00 06/28/21 06:03 Gabapentin 100 Mg Capsule PO 100 mg TID VENUS Administration Insulin Aspart 1 - 9 unit 06/26/21 12:00 06/28/21 11:50 Insulin Aspart 300 Unit/3 Ml Pen SUBQ 3 unit 0800,1200,1700,2100 VENUS Administration Protocol Levothyroxine Sodium 75 mcg 06/27/21 07:00 06/28/21 06:03 Levothyroxine 75 Mcg Tablet PO 75 mcg QDAC VENUS Administration Lisinopril 5 mg 06/27/21 09:00 06/28/21 09:04 Lisinopril 5 Mg Tablet PO 5 mg DAILY VENUS Administration Multivitamins/Minerals 1 tab 06/27/21 12:00 06/28/21 09:04 Multivitamin W/Minerals Tablet PO 1 tab DAILYWM VENUS Administration Sodium Chloride 10 ml 06/26/21 11:30 06/27/21 09:01 Sodium Chloride Flush 0.9% 10 Ml Syringe IVP 10 ml PRN PRN Administration NEEDED PER PROVIDER ORDERS Sodium Chloride 10 ml 06/26/21 17:00 06/28/21 09:05 Sodium Chloride Flush 0.9% 10 Ml Syringe IVP 10 ml 0100,0900,1700 VENUS Administration - Lab Result Fish Bone Diagrams: 06/28/21 05:47 06/28/21 05:47 - Additional Planning My Orders: My Active Orders 06/28/21 12:18 RT - Obtain Arterial Specimen [RC] .ONCE 06/28/21 12:20 Morphine Inj (Carpuject) [Morphine (Carpuject)] 2 mg IVP Q2HR PRN 06/28/21 12:21 Resp Teach Nebulizer/MDI [RC] .ONCE 06/28/21 13:35 Transfer [Admit \ Transfer \ Status] [RC] .ONCE 06/28/21 13:36 BIPAP/CPAP - RT [RC] Q2H 06/28/21 13:42 Omer Insertion [RC] QSHIFT IO [RC] Q1HR Initiate Bowel Care Protocol [RC] QSHIFT Initiate Flu Vaccine Screening [RC] ONCE Initiate ICU Electrolyte Prot. [RC] .protocol Initiate Line Care Protocol [RC] .protocol Initiate Personal Care Protoco [RC] .protocol Initiate Pneumonia Vaccine Scr [RC] ONCE Vital Signs [RC] Q4HR MRSA PCR,CCU ADMIT Routine 06/28/21 13:43 Omer Continuation and Care [RC] QSHIFT Oxygen Therapy [RC] Q12H Telemetry- [RC] Q4HR 06/28/21 16:00 TROPONIN I HIGH SENSITIVITY [IAI] Timed 06/29/21 05:00 MAGNESIUM [CHEM] DAILYLAB Objective Vital Signs: Vital Signs - 24 hr 06/27/21 06/27/21 06/27/21 14:32 15:58 20:37 Temperature 36.8 C 37.1 C Heart Rate Heart Rate [ 73 82 Brachial] Heart Rate [ Monitoring electrodes] Respiratory 18 19 Rate Blood Pressure 103/47 L 111/59 L 99/53 L [Left Brachial artery] Blood Pressure [Right Brachial artery] O2 Saturation 93 94 06/28/21 06/28/21 06/28/21 00:35 05:30 06:28 Temperature 37.1 C 36.8 C Heart Rate Heart Rate [ 98 Brachial] Heart Rate [ 83 98 Monitoring electrodes] Respiratory 20 24 24 Rate Blood Pressure 119/68 122/68 [Left Brachial artery] Blood Pressure [Right Brachial artery] O2 Saturation 95 94 96 06/28/21 06/28/21 06/28/21 07:45 11:29 12:34 Temperature 36.8 C 37.6 C Heart Rate 82 Heart Rate [ 84 86 Brachial] Heart Rate [ Monitoring electrodes] Respiratory 20 36 H 28 H Rate Blood Pressure [Left Brachial artery] Blood Pressure 111/56 L 102/68 [Right Brachial artery] O2 Saturation 94 95 Oxygen O2 Source Nasal cannula Oxygen Flow Rate 4 I&O (Last 24 Hrs): Intake and Output Totals x24h 06/26/21 06/27/21 06/28/21 23:59 23:59 23:59 Intake Total 280 835 440 Output Total 1400 850 450 [facility]1120 -15 -10 - Results Results: Laboratory Results WBC 10.7 x10^3/uL (4.8-10.8) 06/28/21 05:47 RBC 4.05 10^6/uL (4.20-5.40) L 06/28/21 05:47 Hgb 12.5 g/dL (12.0-16.0) 06/28/21 05:47 Hct 41.5 % (37.0-47.0) 06/28/21 05:47 MCV 102.5 fL (81.0-99.0) H 06/28/21 05:47 MCH 30.9 pg (27.0-31.0) 06/28/21 05:47 MCHC 30.1 g/dL (32.0-36.0) L 06/28/21 05:47 RDW 15.9 % (12.0-15.0) H 06/28/21 05:47 Plt Count 178 10^3/uL (130-450) 06/28/21 05:47 MPV 10.9 fL (7.9-10.8) H 06/28/21 05:47 Neut # (Auto) 8.6 10^3/uL (1.5-6.6) H 06/28/21 05:47 Lymph # (Auto) 1.1 10^3/uL (1.5-3.5) L 06/28/21 05:47 Cal[place]oun # (Auto) 0.7 10^3/uL (0.0-1.0) 06/28/21 05:47 Eos # (Auto) 0.3 10^3/uL (0.0-0.7) 06/28/21 05:47 Baso # (Auto) 0.0 10^3/uL (0.0-0.1) 06/28/21 05:47 Absolute Nucleated RBC 0.03 x10^3/uL 06/28/21 05:47 Nucleated RBC % 0.3 /100WBC 06/28/21 05:47 PT 13.1 secs (9.9-12.6) H 06/26/21 09:08 INR 1.2 (0.8-1.2) 06/26/21 09:08 D-Dimer 367.4 ng/mL (200.0-255.0) H 06/26/21 09:08 Bld Gas Analysis Time 1311 06/28/21 13:04 Sample Site RIGHT RADIAL 06/28/21 13:04 ABG pH 7.29 (7.35-7.45) L 06/28/21 13:04 ABG pCO2 79 mmHg (34-45) H* 06/28/21 13:04 ABG pO2 70 mmHg (80-100) L 06/28/21 13:04 ABG HCO3 36.9 mmol/L (22.0-26.0) H 06/28/21 13:04 ABG Total CO2 39.3 MMOL/L (21.0-29.0) H* 06/28/21 13:04 ABG O2 Saturation 93 % (94-98) L 06/28/21 13:04 ABG Base Excess 7.6 mmol/L (-2.0-3.0) H 06/28/21 13:04 Brayan Test POSITIVE 06/28/21 13:04 O2 Delivery Device NASAL CANNULA 06/28/21 13:04 O2 Liters/Min 4.00 LPM 06/28/21 13:04 Sodium 144 mmol/L (135-145) 06/28/21 05:47 Potassium 3.6 mmol/L (3.5-5.0) 06/28/21 05:47 Chloride 97 mmol/L (101-111) L 06/28/21 05:47 Carbon Dioxide 39 mmol/L (21-32) H* 06/28/21 05:47 Anion Gap 8.0 (6-13) 06/28/21 05:47 BUN 32 mg/dL (6-20) H 06/28/21 05:47 Creatinine 0.9 mg/dL (0.4-1.0) 06/28/21 05:47 Estimated GFR (MDRD) 59 (>89) L 06/28/21 05:47 Glucose 119 mg/dL (70-100) H 06/28/21 05:47 Estimat Average Glucose 123 mg/dL (70-100) H 06/27/21 06:03 Hemoglobin A1c % 5.9 % (4.27-6.07) 06/27/21 06:03 Calcium 8.3 mg/dL (8.5-10.3) L 06/28/21 05:47 Phosphorus 5.1 mg/dL (2.5-4.6) H 06/26/21 09:08 Total Bilirubin 0.6 mg/dL (0.2-1.0) 06/26/21 09:08 AST 19 IU/L (10-42) 06/26/21 09:08 ALT 27 IU/L (10-60) 06/26/21 09:08 Alkaline Phosphatase 70 IU/L (42-121) 06/26/21 09:08 Troponin I High Sens 38.0 ng/L (2.3-14.8) H* 06/28/21 12:58 B-Natriuretic Peptide 482 pg/mL (5-100) H 06/28/21 05:47 Total Protein 7.2 g/dL (6.7-8.2) 06/26/21 09:08 Albumin 3.9 g/dL (3.2-5.5) 06/26/21 09:08 Globulin 3.3 g/dL (2.1-4.2) 06/26/21 09:08 Albumin/Globulin Ratio 1.2 (1.0-2.2) 06/26/21 09:08 Lipase 27 U/L (22-51) 06/26/21 09:08 Vitamin B12 2348 pg/mL (180-914) H 06/27/21 06:03 TSH 5.11 uIU/mL (0.34-5.60) 06/26/21 09:08 Nasal Adenovirus (PCR) NOT DETECTED 06/26/21 09:15 Nasal B. parapertussis DNA (PCR) NOT DETECTED 06/26/21 09:15 Nasal Coronavir 229E PCR NOT DETECTED 06/26/21 09:15 Nasal Coronavir HKU1 PCR NOT DETECTED 06/26/21 09:15 Nasal Coronavir NL63 PCR NOT DETECTED 06/26/21 09:15 Nasal Coronavir OC43 PCR NOT DETECTED 06/26/21 09:15 Nasal Enterovir/Rhinovir PCR NOT DETECTED 06/26/21 09:15 Nasal Influenza B PCR NOT DETECTED 06/26/21 09:15 Nasal Influenza A PCR NOT DETECTED 06/26/21 09:15 Nasal Parainfluen 1 PCR NOT DETECTED 06/26/21 09:15 Nasal Parainfluen 2 PCR NOT DETECTED 06/26/21 09:15 Nasal Parainfluen 3 PCR NOT DETECTED 06/26/21 09:15 Nasal Parainfluen 4 PCR NOT DETECTED 06/26/21 09:15 Nasal RSV (PCR) NOT DETECTED 06/26/21 09:15 Nasal B.pertussis DNA PCR NOT DETECTED 06/26/21 09:15 Nasal C.pneumoniae (PCR) NOT DETECTED 06/26/21 09:15 Shine Human Metapneumo PCR NOT DETECTED 06/26/21 09:15 Nasal M.pneumoniae (PCR) NOT DETECTED 06/26/21 09:15 Nasal SARS-CoV-2 (PCR) NOT DETECTED 06/26/21 09:15 - Procedures Procedures: Procedures CARPAL TUNNEL RELEASE (01/14/15) REPLACEMENT OF LEFT LENS WITH SYNTH SUB, PERC APPROACH (06/23/18) REPLACEMENT OF RIGHT LENS WITH SYNTH SUB, PERC APPROACH (07/28/18) Sepsis Event Note (H) - Evaluation Current Stage of Sepsis: Ruled out
[2021-06-28 15:46] LABS: ABG BASE EXCESS 9.3 mmol/L (-2.0-3.0); ABG HCO3 37.2 mmol/L (22.0-26.0); ABG PH 7.35 (7.35-7.45); ABG PO2 60 mmHg (80-100)
[2021-06-28 15:47] LABS: ABG OXYGEN SATURATION 91 % (94-98); ALLEN TEST POSITIVE
[2021-06-28 15:49] LABS: ABG PCO2 69 mmHg (34-45); ABG TCO2 39.3 MMOL/L (21.0-29.0)
[2021-06-28] MEDS: MORPHINE 2 MG/ML CARPUJECT IVP PRN ×2 (18:56→21:06)
[2021-06-28] MEDS: ATORVASTATIN 10 MG TABLET PO SCH (21:02)
[2021-06-29 05:10] LABS: BASOPHILS % (AUTO) 0.2 %; EOSINOPHILS # (AUTO) 0.3 10^3/uL (0.0-0.7); EOSINOPHILS % (AUTO) 2.3 %; HCT - HEMATOCRIT 41.7 % (37.0-47.0); HGB - HEMOGLOBIN 12.6 g/dL (12.0-16.0); LYMPHOCYTES # (AUTO) 1.2 10^3/uL (1.5-3.5); LYMPHOCYTES % (AUTO) 11.2 %; MEAN CORPUSCULAR HEMOGLOBIN 31.2 pg (27.0-31.0); MEAN CORPUSCULAR HGB CONC 30.2 g/dL (32.0-36.0); MEAN CORPUSCULAR VOLUME 103.2 fL (81.0-99.0); MEAN PLATELET VOLUME 10.2 fL (7.9-10.8); MONOCYTES # (AUTO) 0.8 10^3/uL (0.0-1.0); MONOCYTES % (AUTO) 6.9 %; NEUTROPHILS # (AUTO) 8.5 10^3/uL (1.5-6.6); NEUTROPHILS % (AUTO) 78.8 %; PLT - PLATELET COUNT 163 10^3/uL (130-450); RED BLOOD COUNT 4.04 10^6/uL (4.20-5.40); RED CELL DISTRIBUTION WIDTH 15.9 % (12.0-15.0); WHITE BLOOD COUNT 10.8 x10^3/uL (4.8-10.8)
[2021-06-29 05:27] LABS: CALCIUM 8.2 mg/dL (8.5-10.3); CREATININE 0.8 mg/dL (0.4-1.0); MAGNESIUM 2.1 mg/dL (1.7-2.8); POTASSIUM 3.4 mmol/L (3.5-5.0)
[2021-06-29 05:55] LABS: CALCIUM, IONIZED 1.08 mmol/L (1.15-1.33); VBG PH 7.311 (7.31-7.41)
[2021-06-29] MEDS: LEVOTHYROXINE 75 MCG TABLET PO SCH (06:57)
[2021-06-29] MEDS: GABAPENTIN 100 MG CAPSULE PO SCH ×3 (06:57→21:07)
[2021-06-29] MEDS: FUROSEMIDE 20 MG/2 ML VIAL IVP SCH ×2 (06:57→14:18)
[2021-06-29] MEDS ORDERED: IOVERSOL 320 100 ML VIAL IVP ONE (08:10)
[2021-06-29] MEDS: INSULIN ASPART 300 UNIT/3 ML PEN SUBQ SCH ×4 (08:25→21:06)
[2021-06-29] MEDS: ASPIRIN CHEW 81 MG TABLET PO SCH (08:29)
[2021-06-29] MEDS: AZITHROMYCIN 250 MG TABLET PO SCH (08:29)
[2021-06-29] MEDS: carvediloL 12.5 MG TABLET PO SCH ×2 (08:30→21:07)
[2021-06-29] MEDS: POTASSIUM CHLORIDE 20 MEQ TABLET PO SCH ×2 (08:30→10:00)
[2021-06-29] MEDS: MULTIVITAMIN W/MINERALS TABLET PO SCH (08:30)
[2021-06-29] MEDS: lisinopriL 5 MG TABLET PO SCH (08:33)
[2021-06-29] MEDS: CALCIUM CARBONATE CHEW 500 MG TABLET PO SCH ×2 (08:39→12:42)
[2021-06-29] MEDS: ENOXAPARIN 40 MG/0.4 ML SYRINGE SUBQ SCH (08:41)
[2021-06-29] MEDS: SODIUM CHLORIDE FLUSH 0.9% 10 ML SYRINGE IVP SCH ×3 (08:50→21:08)
[2021-06-29] MEDS: MORPHINE 2 MG/ML CARPUJECT IVP PRN (10:14)
[2021-06-29] MEDS: SODIUM CHLORIDE FLUSH 0.9% 10 ML SYRINGE IVP PRN (14:18)
--- NOTE | 2021-06-29 18:43 | PROVIDER PROGRESS NOTE ---
Assessment/Plan - Problem List (1) Acute respiratory acidosis Assessment/Plan: The patient had visibly worsening air hunger and was using accessory muscles of respiration and respiratory rate increased to 36 when her ABG showed ventilatory failure (resp acidosis and hypoxia) yesterday and she was moved to the ICU and BIPAP started. Today her serum bicarbonate is increased, evidence of compensation starting Continue BiPAP and treating the underlying problem, CHF. (2) Acute respiratory failure with hypoxia Assessment/Plan: She continues to require supplemental oxygen for low oxygen saturations, and we are treating CHF which is the underlying cause We will continue diuretics, continue supplemental oxygen, BIPAP at night (3) CHF exacerbation Conclusion/Plan: Echo showed patient has EF 40 to 45%, RVSP at 50 mmHG with mild to moderate Right ventricular abnormality Will continue 40 mg Lasix bid Follow daily weight. I&Os, BNP. Continue home coreg, Lipitor, low dosage lisinopril, Patient will need follow-up with cardiology as outpatient. (4) Atrial fibrillation Conclusion/Plan: Patient has new Afibrillation per the EKG. Patient denied palpitation or chest pain. Heart rate is less than 100. Pt has bruises on her body, and falls at home. Continue aspirin as her blood thinner. Continue on Coreg and continue telemetry. (5) Elevated troponin Conclusion/Plan: Patient had elevated but "flat" troponins. Likely elevated due to CHF. (6) Pulmonary hypertension Conclusion/Plan: Patient has a history of pulmonary hypertension, Echo showed patient has RVSP 50 mmHg, This is likely the reason why patient had a chronic shortness of breathing in the home. Patient needs follow-up with a revenue cycle consultant as out-pt. (7) COPD (chronic obstructive pulmonary disease) Conclusion/Plan: Patient has history of COPD,we did not think she was in COPD exacerbation. Added Duoneb as needed, and today Xopenex prn Continue supplemental oxygen at BIPAP Will consider empric iv steroids if no improvement in resp status as she diureses (8) Diabetes mellitus Conclusion/Plan: Patient was not on insulin for her diabetes at home. Her A1c is 5.9 We started sliding scale insulin coverage while here, fingerstick Glucose checks while here. (9) HTN (hypertension) Conclusion/Plan: Stable, we are continuing patient's home coreg, also on intravenous Lasix and ALIYAH (10) CKD (chronic kidney disease) stage 3, GFR 30-59 ml/min Conclusion/Plan: Patient has history of CKD, here her creatinine is 1.0. We will follow BMP daily while on diuretics for her fluid overload (11) Hypothyroidism Conclusion/Plan: Her TSH here was 5.11, will continue her home Synthroid dose. (12) Weakness and deconditioning Patient presented with weakness, physical deconditioning. We initially consulted with PT and OT, but this was cancelled as she went to ICU for BIPAP yesterday. - Current Meds Current Meds: Current Medications Generic Name Dose Route Start Last Admin Trade Name Freq PRN Reason Stop Dose Admin Aspirin 81 mg 06/26/21 12:00 06/29/21 08:29 Aspirin Chew 81 Mg Tablet PO 81 mg DAILY VENUS Administration Atorvastatin Calcium 20 mg 06/26/21 21:00 06/28/21 21:02 Atorvastatin 10 Mg Tablet PO 20 mg QPM VENUS Administration Carvedilol 12.5 mg 06/26/21 13:08 06/29/21 08:30 Carvedilol 12.5 Mg Tablet PO 12.5 mg BID VENUS Administration Enoxaparin Sodium 40 mg 06/27/21 09:00 06/29/21 08:41 Enoxaparin 40 Mg/0.4 Ml Syringe SUBQ 40 mg DAILY VENUS Administration Furosemide 20 mg 06/28/21 09:00 06/29/21 14:18 Furosemide 20 Mg/2 Ml Vial IVP 20 mg BIDDIURETIC VENUS Administration Gabapentin 100 mg 06/26/21 14:00 06/29/21 14:18 Gabapentin 100 Mg Capsule PO 100 mg TID VENUS Administration Insulin Aspart 1 - 9 unit 06/26/21 12:00 06/29/21 17:21 Insulin Aspart 300 Unit/3 Ml Pen SUBQ 3 unit 0800,1200,1700,2100 VENUS Administration Protocol Levothyroxine Sodium 75 mcg 06/27/21 07:00 06/29/21 06:57 Levothyroxine 75 Mcg Tablet PO 75 mcg QDAC VENUS Administration Lisinopril 5 mg 06/27/21 09:00 06/29/21 08:33 Lisinopril 5 Mg Tablet PO 5 mg DAILY VENUS Administration Morphine Sulfate 2 mg 06/28/21 12:20 06/29/21 10:14 Morphine 2 Mg/Ml Carpuject IVP 2 mg Q2HR PRN Administration PAIN Multivitamins/Minerals 1 tab 10/29/21 12:00 06/29/21 08:30 Multivitamin W/Minerals Tablet PO 1 tab DAILYWM VENUS Administration Sodium Chloride 10 ml 06/26/21 11:30 06/29/21 14:18 Sodium Chloride Flush 0.9% 10 Ml Syringe IVP 10 ml PRN PRN Administration NEEDED PER PROVIDER ORDERS Sodium Chloride 10 ml 06/26/21 17:00 06/29/21 10:17 Sodium Chloride Flush 0.9% 10 Ml Syringe IVP 10 ml 0100,0900,1700 VENUS Administration - Lab Result Fish Bone Diagrams: 06/30/21 05:04 06/30/21 05:04 - Additional Planning My Orders: My Active Orders 06/30/21 05:00 PHOSPHORUS [CHEM] DAILYLAB Subjective - Subjective Patient Reports: No Complaints (But she is visibly tacypneic) Nursing Reports: Other (She tolerated her first night on BiPAP in the ICU however the smallest mask is too big for her and uncomfortable. She also has needed the BiPAP when taking naps during the day. The nurse notices that she is more alert when off BiPAP, since being admitted to the ICU) Objective Vital Signs: Vital Signs - 24 hr 06/28/21 06/28/21 06/28/21 19:00 19:51 20:00 Temperature Heart Rate 80 Heart Rate [ 95 100 Monitoring electrodes] Respiratory 28 H Rate Blood Pressure 112/77 100/61 [Left Brachial artery] O2 Saturation 91 L 85 L 06/28/21 06/28/21 06/28/21 21:00 22:00 23:00 Temperature Heart Rate Heart Rate [ 87 87 86 Monitoring electrodes] Respiratory 24 20 17 Rate Blood Pressure 100/61 76/48 L 85/59 L [Left Brachial artery] O2 Saturation 94 95 95 06/29/21 06/29/21 06/29/21 00:00 01:00 02:00 Temperature 37.1 C Heart Rate Heart Rate [ 85 85 86 Monitoring electrodes] Respiratory 18 26 H 24 Rate Blood Pressure 81/47 L 82/54 L 99/61 [Left Brachial artery] O2 Saturation 94 97 96 06/29/21 06/29/21 06/29/21 03:00 04:00 05:00 Temperature Heart Rate Heart Rate [ 80 71 84 Monitoring electrodes] Respiratory 24 22 23 Rate Blood Pressure 97/54 L 106/62 119/67 [Left Brachial artery] O2 Saturation 95 94 95 06/29/21 06/29/21 06/29/21 05:30 06:00 07:00 Temperature Heart Rate 90 Heart Rate [ 85 91 Monitoring electrodes] Respiratory 20 25 H Rate Blood Pressure 113/65 112/70 [Left Brachial artery] O2 Saturation 95 95 06/29/21 06/29/21 06/29/21 07:15 08:00 09:00 Temperature 36.3 C L Heart Rate 91 Heart Rate [ 93 89 Monitoring electrodes] Respiratory 21 28 H Rate Blood Pressure 104/72 122/67 [Left Brachial artery] O2 Saturation 98 97 06/29/21 06/29/21 06/29/21 10:00 10:30 10:53 Temperature 36.4 C L Heart Rate 87 Heart Rate [ 86 89 Monitoring electrodes] Respiratory 30 H 20 Rate Blood Pressure 104/62 104/62 [Left Brachial artery] O2 Saturation 94 94 06/29/21 06/29/21 06/29/21 12:18 12:30 13:00 Temperature Heart Rate 84 74 Heart Rate [ 74 Monitoring electrodes] Respiratory 18 Rate Blood Pressure 119/89 H [Left Brachial artery] O2 Saturation 94 06/29/21 06/29/21 06/29/21 14:00 14:15 15:00 Temperature 36.9 C Heart Rate 88 Heart Rate [ 93 96 Monitoring electrodes] Respiratory 29 H 31 H Rate Blood Pressure 97/64 113/69 [Left Brachial artery] O2 Saturation 94 96 06/29/21 06/29/21 06/29/21 16:00 17:00 18:00 Temperature 36.7 C Heart Rate Heart Rate [ 101 H 100 99 Monitoring electrodes] Respiratory 30 H 26 H 28 H Rate Blood Pressure 113/71 126/72 116/72 [Left Brachial artery] O2 Saturation 94 93 93 Oxygen O2 Source Mechanical ventilator Oxygen Flow Rate 4 I&O (Last 24 Hrs): Intake and Output Totals x24h 06/27/21 06/28/21 06/29/21 23:59 23:59 23:59 Intake Total 835 740 820 Output Total 850 1250 650 Balance -15 -510 170 General: Alert, Oriented x3, Other (Thin elederly female) HEENT: Mucous membr. moist/pink, Other (Lips cyanotic) Neck: Supple, Other ((+) JVD) Neuro: Alert, Non Focal Cardiovascular: Regular rate, No murmurs Respiratory: Rales Abdomen: Soft Extremities: No clubbing, No edema - Results Results: Laboratory Results WBC 10.8 x10^3/uL (4.8-10.8) 06/29/21 04:53 RBC 4.04 10^6/uL (4.20-5.40) L 06/29/21 04:53 Hgb 12.6 g/dL (12.0-16.0) 06/29/21 04:53 Hct 41.7 % (37.0-47.0) 06/29/21 04:53 MCV 103.2 fL (81.0-99.0) H 06/29/21 04:53 MCH 31.2 pg (27.0-31.0) H 06/29/21 04:53 MCHC 30.2 g/dL (32.0-36.0) L 06/29/21 04:53 RDW 15.9 % (12.0-15.0) H 06/29/21 04:53 Plt Count 163 10^3/uL (130-450) 06/29/21 04:53 MPV 10.2 fL (7.9-10.8) 06/29/21 04:53 Neut # (Auto) 8.5 10^3/uL (1.5-6.6) H 06/29/21 04:53 Lymph # (Auto) 1.2 10^3/uL (1.5-3.5) L 06/29/21 04:53 [place]ander # (Auto) 0.8 10^3/uL (0.0-1.0) 06/29/21 04:53 Eos # (Auto) 0.3 10^3/uL (0.0-0.7) 06/29/21 04:53 Baso # (Auto) 0.0 10^3/uL (0.0-0.1) 06/29/21 04:53 Absolute Nucleated RBC 0.00 x10^3/uL 06/29/21 04:53 Nucleated RBC % 0.0 /100WBC 06/29/21 04:53 PT 13.1 secs (9.9-12.6) H 06/26/21 09:08 INR 1.2 (0.8-1.2) 06/26/21 09:08 D-Dimer 367.4 ng/mL (200.0-255.0) H 06/26/21 09:08 Bld Gas Analysis Time 1546 06/28/21 15:35 Sample Site 06/28/21 15:35 ABG pH 7.35 (7.35-7.45) 06/28/21 15:35 ABG pCO2 69 mmHg (34-45) H* 06/28/21 15:35 ABG pO2 60 mmHg (80-100) L 06/28/21 15:35 ABG HCO3 37.2 mmol/L (22.0-26.0) H 06/28/21 15:35 ABG Total CO2 39.3 MMOL/L (21.0-29.0) H* 06/28/21 15:35 ABG O2 Saturation 91 % (94-98) L 06/28/21 15:35 ABG Base Excess 9.3 mmol/L (-2.0-3.0) H 06/28/21 15:35 Brayan Test POSITIVE 06/28/21 15:35 VBG pH 7.311 (7.31-7.41) 06/29/21 04:51 Ionized Calcium 1.08 mmol/L (1.15-1.33) L 06/29/21 04:51 O2 Delivery Device BiPAP 06/28/21 15:35 O2 Liters/Min 4.00 LPM 06/28/21 13:04 FiO2 40.00 06/28/21 15:35 EPAP 4 cmH2O 06/28/21 15:35 IPAP 8 cmH2O 06/28/21 15:35 Sodium 143 mmol/L (135-145) 06/29/21 04:53 Potassium 3.4 mmol/L (3.5-5.0) L 06/29/21 04:53 Chloride 93 mmol/L (101-111) L 06/29/21 04:53 Carbon Dioxide 42 mmol/L (21-32) H* 06/29/21 04:53 Anion Gap 8.0 (6-13) 06/29/21 04:53 BUN 27 mg/dL (6-20) H 06/29/21 04:53 Creatinine 0.8 mg/dL (0.4-1.0) 06/29/21 04:53 Estimated GFR (MDRD) 68 (>89) L 06/29/21 04:53 Glucose 189 mg/dL (70-100) H 06/29/21 04:53 Estimat Average Glucose 123 mg/dL (70-100) H 06/27/21 06:03 Hemoglobin A1c % 5.9 % (4.27-6.07) 06/27/21 06:03 Calcium 8.2 mg/dL (8.5-10.3) L 06/29/21 04:53 Phosphorus 3.1 mg/dL (2.5-4.6) 06/29/21 04:51 Magnesium 2.1 mg/dL (1.7-2.8) 06/29/21 04:53 Total Bilirubin 0.6 mg/dL (0.2-1.0) 06/26/21 09:08 AST 19 IU/L (10-42) 06/26/21 09:08 ALT 27 IU/L (10-60) 06/26/21 09:08 Alkaline Phosphatase 70 IU/L (42-121) 06/26/21 09:08 Troponin I High Sens 34.7 ng/L (2.3-14.8) H* 06/28/21 15:55 B-Natriuretic Peptide 357 pg/mL (5-100) H 06/29/21 04:53 Total Protein 7.2 g/dL (6.7-8.2) 06/26/21 09:08 Albumin 3.9 g/dL (3.2-5.5) 06/26/21 09:08 Globulin 3.3 g/dL (2.1-4.2) 06/26/21 09:08 Albumin/Globulin Ratio 1.2 (1.0-2.2) 06/26/21 09:08 Lipase 27 U/L (22-51) 06/26/21 09:08 Vitamin B12 2348 pg/mL (180-914) H 06/27/21 06:03 TSH 5.11 uIU/mL (0.34-5.60) 06/26/21 09:08 Nasal Adenovirus (PCR) NOT DETECTED 06/26/21 09:15 Nasal B. parapertussis DNA (PCR) NOT DETECTED 06/26/21 09:15 Nasal Coronavir 229E PCR NOT DETECTED 06/26/21 09:15 Nasal Coronavir HKU1 PCR NOT DETECTED 06/26/21 09:15 Nasal Coronavir NL63 PCR NOT DETECTED 06/26/21 09:15 Nasal Coronavir OC43 PCR NOT DETECTED 06/26/21 09:15 Nasal Enterovir/Rhinovir PCR NOT DETECTED 06/26/21 09:15 Nasal Influenza B PCR NOT DETECTED 06/26/21 09:15 Nasal Influenza A PCR NOT DETECTED 06/26/21 09:15 Nasal Parainfluen 1 PCR NOT DETECTED 06/26/21 09:15 Nasal Parainfluen 2 PCR NOT DETECTED 06/26/21 09:15 Nasal Parainfluen 3 PCR NOT DETECTED 06/26/21 09:15 Nasal Parainfluen 4 PCR NOT DETECTED 06/26/21 09:15 Nasal RSV (PCR) NOT DETECTED 06/26/21 09:15 Nasal Screen MRSA (PCR) NEGATIVE (NEGATIVE) 06/28/21 17:20 Nasal B.pertussis DNA PCR NOT DETECTED 06/26/21 09:15 Nasal C.pneumoniae (PCR) NOT DETECTED 06/26/21 09:15 Shine Human Metapneumo PCR NOT DETECTED 06/26/21 09:15 Nasal M.pneumoniae (PCR) NOT DETECTED 06/26/21 09:15 Nasal SARS-CoV-2 (PCR) NOT DETECTED 06/26/21 09:15 - Procedures Procedures: Procedures CARPAL TUNNEL RELEASE (01/14/15) REPLACEMENT OF LEFT LENS WITH SYNTH SUB, PERC APPROACH (06/23/18) REPLACEMENT OF RIGHT LENS WITH SYNTH SUB, PERC APPROACH (07/28/18) Sepsis Event Note (H) - Evaluation Current Stage of Sepsis: Ruled out
[2021-06-29] MEDS: ATORVASTATIN 10 MG TABLET PO SCH (21:07)
[2021-06-30 05:14] LABS: BASOPHILS % (AUTO) 0.2 %; EOSINOPHILS # (AUTO) 0.3 10^3/uL (0.0-0.7); EOSINOPHILS % (AUTO) 2.4 %; HCT - HEMATOCRIT 43.8 % (37.0-47.0); HGB - HEMOGLOBIN 13.5 g/dL (12.0-16.0); LYMPHOCYTES # (AUTO) 1.2 10^3/uL (1.5-3.5); LYMPHOCYTES % (AUTO) 8.9 %; MEAN CORPUSCULAR HEMOGLOBIN 30.8 pg (27.0-31.0); MEAN CORPUSCULAR HGB CONC 30.8 g/dL (32.0-36.0); MEAN CORPUSCULAR VOLUME 99.8 fL (81.0-99.0); MEAN PLATELET VOLUME 10.9 fL (7.9-10.8); MONOCYTES # (AUTO) 0.8 10^3/uL (0.0-1.0); MONOCYTES % (AUTO) 6.3 %; NEUTROPHILS # (AUTO) 10.7 10^3/uL (1.5-6.6); NEUTROPHILS % (AUTO) 81.9 %; PLT - PLATELET COUNT 177 10^3/uL (130-450); RED BLOOD COUNT 4.39 10^6/uL (4.20-5.40); RED CELL DISTRIBUTION WIDTH 15.8 % (12.0-15.0); WHITE BLOOD COUNT 13.1 x10^3/uL (4.8-10.8)
[2021-06-30 05:27] LABS: CALCIUM 8.9 mg/dL (8.5-10.3); CREATININE 0.7 mg/dL (0.4-1.0); POTASSIUM 3.7 mmol/L (3.5-5.0)
[2021-06-30 05:43] LABS: CALCIUM, IONIZED 1.13 mmol/L (1.15-1.33); VBG PH 7.452 (7.31-7.41)
[2021-06-30] MEDS: LEVOTHYROXINE 75 MCG TABLET PO SCH (06:30)
[2021-06-30] MEDS: GABAPENTIN 100 MG CAPSULE PO SCH ×3 (06:30→22:43)
[2021-06-30] MEDS: FUROSEMIDE 20 MG/2 ML VIAL IVP SCH ×2 (06:30→15:01)
[2021-06-30] MEDS: NEUTRA-PHOS 250 MG TABLET PO SCH ×2 (06:32→09:10)
[2021-06-30] MEDS: SODIUM CHLORIDE FLUSH 0.9% 10 ML SYRINGE IVP PRN ×2 (06:32→15:01)
[2021-06-30] MEDS ORDERED: POTASSIUM CHLORIDE 20 MEQ TABLET PO ONE (08:00)
[2021-06-30] MEDS: carvediloL 12.5 MG TABLET PO SCH ×2 (09:08→20:59)
[2021-06-30] MEDS: MULTIVITAMIN W/MINERALS TABLET PO SCH (09:08)
[2021-06-30] MEDS: INSULIN ASPART 300 UNIT/3 ML PEN SUBQ SCH ×4 (09:09→20:59)
[2021-06-30] MEDS: ASPIRIN CHEW 81 MG TABLET PO SCH (09:09)
[2021-06-30] MEDS: ENOXAPARIN 40 MG/0.4 ML SYRINGE SUBQ SCH (09:09)
[2021-06-30] MEDS: lisinopriL 5 MG TABLET PO SCH (09:10)
[2021-06-30] MEDS: SODIUM CHLORIDE FLUSH 0.9% 10 ML SYRINGE IVP SCH ×2 (09:11→17:10)
--- NOTE | 2021-06-30 18:27 | PROVIDER PROGRESS NOTE ---
Assessment/Plan - Problem List (1) Acute respiratory acidosis Assessment/Plan: The patient had visibly worsening air hunger 2 days ago, and was using accessory muscles of respiration and respiratory rate increased to 36 when her ABG showed ventilatory failure (resp acidosis and hypoxia) and she was moved to the ICU and BIPAP started. Then her serum bicarbonate is increased, evidence of compensation starting. She was off BIPAP for 24 hours and was able to be moved out of the ICU Continue supplemental O2, keeping sats > 88% Despite improved respiratory status after BiPAP, she continues to be tachypneic, which corresponds with what family said that she was failing to thrive for the past 1 week at home, too tired to get out of bed. Here we saw she was too tired to even feed herself. We will order a Palliative Care consult to help establish what she wants along with family wishes and possibly transition to Hospice (2) Acute respiratory failure with hypoxia Assessment/Plan: She continues to require supplemental oxygen for low oxygen saturations, and we are treating CHF which is the underlying cause We will continue diuretics, continue supplemental oxygen (3) CHF exacerbation Conclusion/Plan: Echo showed patient has EF 40 to 45%, RVSP at 50 mmHG with mild to moderate Right ventricular abnormality Will continue 40 mg Lasix bid Follow daily weight. I&Os, BNP. Continue home coreg, Lipitor, low dosage lisinopril, Patient will need follow-up with cardiology as outpatient unless she goes home with Hospice. (4) Atrial fibrillation Conclusion/Plan: Patient has new Afibrillation per the EKG. Patient denied palpitation or chest pain. Heart rate is less than 100. Pt has bruises on her body, and falls at home. Continue aspirin as her blood thinner. Continue on Coreg and continue telemetry. (5) Elevated troponin Conclusion/Plan: Patient had elevated but "flat" troponins. Likely elevated due to CHF. (6) Pulmonary hypertension Conclusion/Plan: Patient has a history of pulmonary hypertension, Echo showed patient has RVSP 50 mmHg, This is likely the reason why patient had a chronic shortness of breathing in the home. Patient needs follow-up with a auxiliary operator as out-pt unless she goes home with Hospice. (7) COPD (chronic obstructive pulmonary disease) Conclusion/Plan: Patient has history of COPD,we did not think she was in COPD exacerbation. Added Duoneb as needed, and today Xopenex prn Continue supplemental oxygen at BIPAP Will consider empric iv steroids (8) Diabetes mellitus Conclusion/Plan: Patient was not on insulin for her diabetes at home. Her A1c is 5.9 We started sliding scale insulin coverage while here, fingerstick Glucose checks while here. (9) HTN (hypertension) Conclusion/Plan: Stable, we are continuing patient's home coreg, also on intravenous Lasix and ALIYAH (10) CKD (chronic kidney disease) stage 3, GFR 30-59 ml/min Conclusion/Plan: Patient has history of CKD, here her creatinine is 1.0. We will follow BMP daily while on diuretics for her fluid overload (11) Hypothyroidism Conclusion/Plan: Her TSH here was 5.11, will continue her home Synthroid dose. (12) Weakness and deconditioning Patient presented with weakness, physical deconditioning. We initially consulted with PT and OT, but this was cancelled as she went to ICU for BIPAP yesterday. Despite improved respiratory status after BiPAP, she continues to be tachypneic, which corresponds with what family said that she was failing to thrive for the past 1 week at home, too tired to get out of bed. Here we saw she was too tired to even feed herself. We will order a Palliative Care consult to help establish what she wants along with family wishes and possibly transition to Hospice. - Current Meds Current Meds: Current Medications Generic Name Dose Route Start Last Admin Trade Name Freq PRN Reason Stop Dose Admin Aspirin 81 mg 06/26/21 12:00 06/30/21 09:09 Aspirin Chew 81 Mg Tablet PO 81 mg DAILY VENUS Administration Atorvastatin Calcium 20 mg 06/26/21 21:00 06/29/21 21:07 Atorvastatin 10 Mg Tablet PO 20 mg QPM VENUS Administration Carvedilol 12.5 mg 06/26/21 13:08 06/30/21 09:08 Carvedilol 12.5 Mg Tablet PO 12.5 mg BID VENUS Administration Enoxaparin Sodium 40 mg 06/27/21 09:00 06/30/21 09:09 Enoxaparin 40 Mg/0.4 Ml Syringe SUBQ 40 mg DAILY VENUS Administration Furosemide 20 mg 06/28/21 09:00 06/30/21 15:01 Furosemide 20 Mg/2 Ml Vial IVP 20 mg BIDDIURETIC VENUS Administration Gabapentin 100 mg 06/26/21 14:00 06/30/21 15:01 Gabapentin 100 Mg Capsule PO 100 mg TID VENUS Administration Insulin Aspart 2 - 10 unit 06/30/21 08:00 06/30/21 17:09 Insulin Aspart 300 Unit/3 Ml Pen SUBQ 4 unit 0800,1200,1700,2100 VENUS Administration Protocol Levothyroxine Sodium 75 mcg 06/27/21 07:00 06/30/21 06:30 Levothyroxine 75 Mcg Tablet PO 75 mcg QDAC VENUS Administration Lisinopril 5 mg 06/27/21 09:00 06/30/21 09:10 Lisinopril 5 Mg Tablet PO 5 mg DAILY VENUS Administration Metoprolol Tartrate 5 mg 06/26/21 13:16 06/30/21 09:33 Metoprolol 5 Mg/5 Ml Vial IVP 5 mg Q6H PRN Administration Tachycardia Morphine Sulfate 2 mg 06/28/21 12:20 06/29/21 10:14 Morphine 2 Mg/Ml Carpuject IVP 2 mg Q2HR PRN Administration PAIN Multivitamins/Minerals 1 tab 06/27/21 12:00 06/30/21 09:08 Multivitamin W/Minerals Tablet PO 1 tab DAILYWM VENUS Administration Sodium Chloride 10 ml 06/26/21 11:30 06/30/21 15:01 Sodium Chloride Flush 0.9% 10 Ml Syringe IVP 10 ml PRN PRN Administration NEEDED PER PROVIDER ORDERS Sodium Chloride 10 ml 06/26/21 17:00 06/30/21 17:10 Sodium Chloride Flush 0.9% 10 Ml Syringe IVP 10 ml 0100,0900,1700 VENUS Administration - Lab Result Fish Bone Diagrams: 07/01/21 05:25 07/01/21 05:25 - Additional Planning My Orders: My Active Orders 06/30/21 Palliative Care Consult [CONS] Routine 07/01/21 05:00 CALCIUM, IONIZED ([facility]) [BG] DAILYLAB MAGNESIUM [CHEM] DAILYLAB 07/02/21 05:00 CALCIUM, IONIZED ([facility]) [BG] DAILYLAB MAGNESIUM [CHEM] DAILYLAB Subjective - Subjective Patient Reports: Shortness of Breath Nursing Reports: Other (Able to feed herself 50% then she gets tired even doing that) Objective Vital Signs: Vital Signs - 24 hr 06/29/21 06/29/21 06/29/21 19:00 20:44 21:00 Temperature 36.8 C 36.8 C Heart Rate [ 107 H 110 H 105 H Monitoring electrodes] Respiratory 28 H 30 H 28 H Rate Blood Pressure Blood Pressure 119/89 H 136/84 H 140/86 H [Left Brachial artery] O2 Saturation 93 94 92 06/29/21 06/29/21 06/30/21 22:00 23:00 00:00 Temperature Heart Rate [ 97 97 93 Monitoring electrodes] Respiratory 29 H 28 H 29 H Rate Blood Pressure Blood Pressure 120/68 116/77 113/70 [Left Brachial artery] O2 Saturation 89 L 94 95 06/30/21 06/30/21 06/30/21 01:00 02:00 03:00 Temperature 37.4 C Heart Rate [ 99 99 105 H Monitoring electrodes] Respiratory 30 H 29 H 30 H Rate Blood Pressure Blood Pressure 123/70 135/73 H 140/69 H [Left Brachial artery] O2 Saturation 93 94 94 06/30/21 06/30/21 06/30/21 04:00 05:00 06:00 Temperature 37.2 C Heart Rate [ 113 H 105 H 109 H Monitoring electrodes] Respiratory 30 H 28 H 25 H Rate Blood Pressure Blood Pressure 121/89 H 141/95 H 136/78 H [Left Brachial artery] O2 Saturation 91 L 96 95 06/30/21 06/30/21 06/30/21 07:00 08:00 09:00 Temperature 37.1 C Heart Rate [ 105 H 110 H 115 H Monitoring electrodes] Respiratory 28 H 27 H 28 H Rate Blood Pressure Blood Pressure 133/97 H 137/98 H 107/72 [Left Brachial artery] O2 Saturation 93 95 93 06/30/21 06/30/21 06/30/21 09:33 10:00 10:03 Temperature Heart Rate [ 102 H Monitoring electrodes] Respiratory 37 H Rate Blood Pressure 133/74 H 114/55 L Blood Pressure 108/53 L [Left Brachial artery] O2 Saturation 91 L 06/30/21 06/30/21 06/30/21 11:00 13:00 14:00 Temperature Heart Rate [ 99 109 H 113 H Monitoring electrodes] Respiratory 40 H 31 H 35 H Rate Blood Pressure Blood Pressure 114/55 L 106/71 99/73 [Left Brachial artery] O2 Saturation 90 L 97 95 06/30/21 06/30/21 15:00 16:36 Temperature 36.7 C Heart Rate [ 105 H 93 Monitoring electrodes] Respiratory 22 25 H Rate Blood Pressure Blood Pressure 98/85 H 124/84 H [Left Brachial artery] O2 Saturation 93 96 Oxygen O2 Source Nasal cannula Oxygen Flow Rate 4 I&O (Last 24 Hrs): Intake and Output Totals x24h 06/28/21 06/29/21 06/30/21 23:59 23:59 23:59 Intake Total 740 820 495 Output Total 1250 650 450 Balance -510 170 45 General: Alert, Oriented x3, Mild distress (respiratory) HEENT: Mucous membr. moist/pink Neck: Supple Neuro: Alert, Non Focal Cardiovascular: No murmurs Respiratory: Rales Abdomen: Soft Extremities: No edema - Results Results: Laboratory Results WBC 13.1 x10^3/uL (4.8-10.8) H 06/30/21 05:04 RBC 4.39 10^6/uL (4.20-5.40) 06/30/21 05:04 Hgb 13.5 g/dL (12.0-16.0) 06/30/21 05:04 Hct 43.8 % (37.0-47.0) 06/30/21 05:04 MCV 99.8 fL (81.0-99.0) H 06/30/21 05:04 MCH 30.8 pg (27.0-31.0) 06/30/21 05:04 MCHC 30.8 g/dL (32.0-36.0) L 06/30/21 05:04 RDW 15.8 % (12.0-15.0) H 06/30/21 05:04 Plt Count 177 10^3/uL (130-450) 06/30/21 05:04 MPV 10.9 fL (7.9-10.8) H 06/30/21 05:04 Neut # (Auto) 10.7 10^3/uL (1.5-6.6) H 06/30/21 05:04 Lymph # (Auto) 1.2 10^3/uL (1.5-3.5) L 06/30/21 05:04 Hart # (Auto) 0.8 10^3/uL (0.0-1.0) 06/30/21 05:04 Eos # (Auto) 0.3 10^3/uL (0.0-0.7) 06/30/21 05:04 Baso # (Auto) 0.0 10^3/uL (0.0-0.1) 06/30/21 05:04 Absolute Nucleated RBC 0.00 x10^3/uL 06/30/21 05:04 Nucleated RBC % 0.0 /100WBC 06/30/21 05:04 PT 13.1 secs (9.9-12.6) H 06/26/21 09:08 INR 1.2 (0.8-1.2) 06/26/21 09:08 D-Dimer 367.4 ng/mL (200.0-255.0) H 06/26/21 09:08 Bld Gas Analysis Time 1546 06/28/21 15:35 Sample Site 06/28/21 15:35 ABG pH 7.35 (7.35-7.45) 06/28/21 15:35 ABG pCO2 69 mmHg (34-45) H* 06/28/21 15:35 ABG pO2 60 mmHg (80-100) L 06/28/21 15:35 ABG HCO3 37.2 mmol/L (22.0-26.0) H 06/28/21 15:35 ABG Total CO2 39.3 MMOL/L (21.0-29.0) H* 06/28/21 15:35 ABG O2 Saturation 91 % (94-98) L 06/28/21 15:35 ABG Base Excess 9.3 mmol/L (-2.0-3.0) H 06/28/21 15:35 Brayan Test POSITIVE 06/28/21 15:35 VBG pH 7.452 (7.31-7.41) H 06/30/21 05:04 Ionized Calcium 1.13 mmol/L (1.15-1.33) L 06/30/21 05:04 O2 Delivery Device BiPAP 06/28/21 15:35 O2 Liters/Min 4.00 LPM 06/28/21 13:04 FiO2 40.00 06/28/21 15:35 EPAP 4 cmH2O 06/28/21 15:35 IPAP 8 cmH2O 06/28/21 15:35 Sodium 144 mmol/L (135-145) 06/30/21 05:04 Potassium 3.7 mmol/L (3.5-5.0) 06/30/21 05:04 Chloride 91 mmol/L (101-111) L 06/30/21 05:04 Carbon Dioxide 44 mmol/L (21-32) H* 06/30/21 05:04 Anion Gap 9.0 (6-13) 06/30/21 05:04 BUN 23 mg/dL (6-20) H 06/30/21 05:04 Creatinine 0.7 mg/dL (0.4-1.0) 06/30/21 05:04 Estimated GFR (MDRD) 79 (>89) L 06/30/21 05:04 Glucose 180 mg/dL (70-100) H 06/30/21 05:04 Estimat Average Glucose 123 mg/dL (70-100) H 06/27/21 06:03 Hemoglobin A1c % 5.9 % (4.27-6.07) 06/27/21 06:03 Calcium 8.9 mg/dL (8.5-10.3) 06/30/21 05:04 Phosphorus 2.2 mg/dL (2.5-4.6) L 06/30/21 05:04 Magnesium 1.9 mg/dL (1.7-2.8) 06/30/21 05:04 Total Bilirubin 0.6 mg/dL (0.2-1.0) 06/26/21 09:08 AST 19 IU/L (10-42) 06/26/21 09:08 ALT 27 IU/L (10-60) 06/26/21 09:08 Alkaline Phosphatase 70 IU/L (42-121) 06/26/21 09:08 Troponin I High Sens 34.7 ng/L (2.3-14.8) H* 06/28/21 15:55 B-Natriuretic Peptide 354 pg/mL (5-100) H 06/30/21 05:04 Total Protein 7.2 g/dL (6.7-8.2) 06/26/21 09:08 Albumin 3.9 g/dL (3.2-5.5) 06/26/21 09:08 Globulin 3.3 g/dL (2.1-4.2) 06/26/21 09:08 Albumin/Globulin Ratio 1.2 (1.0-2.2) 06/26/21 09:08 Lipase 27 U/L (22-51) 06/26/21 09:08 Vitamin B12 2348 pg/mL (180-914) H 06/27/21 06:03 TSH 5.11 uIU/mL (0.34-5.60) 06/26/21 09:08 Nasal Adenovirus (PCR) NOT DETECTED 06/26/21 09:15 Nasal B. parapertussis DNA (PCR) NOT DETECTED 06/26/21 09:15 Nasal Coronavir 229E PCR NOT DETECTED 06/26/21 09:15 Nasal Coronavir HKU1 PCR NOT DETECTED 06/26/21 09:15 Nasal Coronavir NL63 PCR NOT DETECTED 06/26/21 09:15 Nasal Coronavir OC43 PCR NOT DETECTED 06/26/21 09:15 Nasal Enterovir/Rhinovir PCR NOT DETECTED 06/26/21 09:15 Nasal Influenza B PCR NOT DETECTED 06/26/21 09:15 Nasal Influenza A PCR NOT DETECTED 06/26/21 09:15 Nasal Parainfluen 1 PCR NOT DETECTED 06/26/21 09:15 Nasal Parainfluen 2 PCR NOT DETECTED 06/26/21 09:15 Nasal Parainfluen 3 PCR NOT DETECTED 06/26/21 09:15 Nasal Parainfluen 4 PCR NOT DETECTED 06/26/21 09:15 Nasal RSV (PCR) NOT DETECTED 06/26/21 09:15 Nasal Screen MRSA (PCR) NEGATIVE (NEGATIVE) 06/28/21 17:20 Nasal B.pertussis DNA PCR NOT DETECTED 06/26/21 09:15 Nasal C.pneumoniae (PCR) NOT DETECTED 06/26/21 09:15 Shine Human Metapneumo PCR NOT DETECTED 06/26/21 09:15 Nasal M.pneumoniae (PCR) NOT DETECTED 06/26/21 09:15 Nasal SARS-CoV-2 (PCR) NOT DETECTED 06/26/21 09:15 - Procedures Procedures: Procedures CARPAL TUNNEL RELEASE (01/14/15) REPLACEMENT OF LEFT LENS WITH SYNTH SUB, PERC APPROACH (06/23/18) REPLACEMENT OF RIGHT LENS WITH SYNTH SUB, PERC APPROACH (07/28/18) Sepsis Event Note (H) - Evaluation Current Stage of Sepsis: Ruled out
[2021-06-30] MEDS: ATORVASTATIN 10 MG TABLET PO SCH (22:43)
[2021-07-01] MEDS: SODIUM CHLORIDE FLUSH 0.9% 10 ML SYRINGE IVP SCH ×3 (02:16→16:32)
[2021-07-01] MEDS: FUROSEMIDE 20 MG/2 ML VIAL IVP SCH ×2 (05:31→13:14)
[2021-07-01] MEDS: GABAPENTIN 100 MG CAPSULE PO SCH ×3 (05:32→21:23)
[2021-07-01] MEDS: LEVOTHYROXINE 75 MCG TABLET PO SCH (05:32)
[2021-07-01 05:39] LABS: BASOPHILS % (AUTO) 0.4 %; EOSINOPHILS # (AUTO) 0.2 10^3/uL (0.0-0.7); EOSINOPHILS % (AUTO) 2.1 %; HCT - HEMATOCRIT 39.6 % (37.0-47.0); HGB - HEMOGLOBIN 11.9 g/dL (12.0-16.0); LYMPHOCYTES # (AUTO) 1.3 10^3/uL (1.5-3.5); LYMPHOCYTES % (AUTO) 11.7 %; MEAN CORPUSCULAR HEMOGLOBIN 30.9 pg (27.0-31.0); MEAN CORPUSCULAR HGB CONC 30.1 g/dL (32.0-36.0); MEAN CORPUSCULAR VOLUME 102.9 fL (81.0-99.0); MEAN PLATELET VOLUME 11.5 fL (7.9-10.8); MONOCYTES # (AUTO) 0.7 10^3/uL (0.0-1.0); MONOCYTES % (AUTO) 6.9 %; NEUTROPHILS # (AUTO) 8.5 10^3/uL (1.5-6.6); NEUTROPHILS % (AUTO) 78.4 %; PLT - PLATELET COUNT 149 10^3/uL (130-450); RED BLOOD COUNT 3.85 10^6/uL (4.20-5.40); RED CELL DISTRIBUTION WIDTH 15.9 % (12.0-15.0); WHITE BLOOD COUNT 10.8 x10^3/uL (4.8-10.8)
[2021-07-01 05:40] LABS: CALCIUM, IONIZED 1.05 mmol/L (1.15-1.33); VBG PH 7.475 (7.31-7.41)
[2021-07-01 05:50] LABS: CALCIUM 8.5 mg/dL (8.5-10.3); CREATININE 1.1 mg/dL (0.4-1.0); MAGNESIUM 2.2 mg/dL (1.7-2.8); POTASSIUM 3.7 mmol/L (3.5-5.0)
[2021-07-01] MEDS: ASPIRIN CHEW 81 MG TABLET PO SCH (08:47)
[2021-07-01] MEDS: MULTIVITAMIN W/MINERALS TABLET PO SCH (08:47)
[2021-07-01] MEDS: carvediloL 12.5 MG TABLET PO SCH ×2 (08:47→21:22)
[2021-07-01] MEDS: INSULIN ASPART 300 UNIT/3 ML PEN SUBQ SCH ×4 (08:47→21:23)
[2021-07-01] MEDS: lisinopriL 5 MG TABLET PO SCH (08:47)
[2021-07-01] MEDS: ENOXAPARIN 40 MG/0.4 ML SYRINGE SUBQ SCH (08:48)
[2021-07-01 12:23] LABS: ABG HCO3 49.7 mmol/L (22.0-26.0); ABG PH 7.47 (7.35-7.45); ABG PO2 56 mmHg (80-100)
[2021-07-01 12:24] LABS: ABG BASE EXCESS 21.9 mmol/L (-2.0-3.0); ABG OXYGEN SATURATION 90 % (94-98); ALLEN TEST POSITIVE
--- NOTE | 2021-07-01 12:26 | CONSULTATION NOTE ---
Palliative Care Consultation - Referral Referring Provider: Dr. Sabina Guillen Time of Visit: 10:45-11:45;[id number] Referral setting: Hospitalized patient Referral Reason: Goals of Care/Acute on Chronic Respiratory Failure/FTT - Information Sources Records reviewed: RN notes reviewed, Previous records reviewed History/Review of Systems obtained from: Family, Nursing Exam limitations: Clinical condition (patient very lethargic) - History of Present Illness Brief History of Present Illness: This is an 85-year-old woman who presented to the hospital on 06/26 for worsening respiratory status, with mild cough, shortness of breath, and weakness. She presented though with an O2 sat of 65% on room air. Her original chest x-ray showed congestive heart failure exacerbation, was found to have pulmonary hypertension, and pleural effusions right greater than left. She was found to have a new diagnosis of atrial fib, and developed worsening air hunger respiratory acidosis and hypoxia, was moved to the ICU with BiPAP. She did improve some, though dislikes the mask, and was transition back out to the floor. She continues with fluctuating mental status. And concern for patient's ongoing decline particularly given the context of her deteriorating status. Palliative care was asked to follow-up and establish goals of care. In meeting with patient this am, patient does not present with decision-making capacity, she does understand she is in the hospital in [place]. When asked if she understood what was going on, she could not answer me. We did discuss if she thought she was going to get better, she said "I think I will", but in follow-up questioning, she does just also want to be comfortable, we did discuss transitioning home with possible hospice. Patient does not appear to understand any of the concepts or questions being put forth, repeatedly says "I am just tired and want to rest". She is not agitated, or anxious, denies having worries. I did call the family on the phone, this included Katia Flores her DPOA, her son Floyd Smith and Madhav Lauryn were both on the call. We discussed that she is continuing to do poorly, and their understanding is she had 2 choices to move to a care facility and focus on getting stronger, or transition home for end-of-life. Their perception is that her quality of life is continued to be diminished, and would not want her suffering prolonged. This includes returning to Bipap support. In the context of patient's healthcare directive, it is fairly broad but does speak to would not want application of life-sustaining treatment to artificially prolong process of dying, and be permitted to naturally. If she were to be diagnosed in a terminal condition, as well as not have artificial nutrition or hydration. 1630 In follow up with meeting with Katia Flores (DP) and son Juan J, reviewed patient has some baseline memory/dementia issues prior to admit. Has had trouble with memory, insight into health issues, and physical health has been declining. Patient has had severe spinal issues for almost 20 years, with multiple cortisone shots, with less response and physical decline last several months to years, as well as her respiratory issues. She has been resistant to help and support, which has made it difficult for daughter who is CECILIA worker to provide ongoing help, son Juan J is planning to be available as well for ass istance through her decline and transition home. Medical/Surgical History - Past Medical History Cardiovascular: reports: Congestive heart failure, Hypertension, High cholesterol Respiratory: reports: COPD, Shortness of breath Neuro: Dementia Endocrine/Autoimmune: reports: Type 2 diabetes GI: reports: None RESIDENT CAREGIVER: reports: None : reports: None HEENT: reports: None Psych: reports: Depression, Anxiety Musculoskeletal: reports: Osteoarthritis, Fatigue, Chronic back pain (spine surgeries) Derm: reports: None MRSA Hx?: Yes - Past Surgical History General: reports: Colonoscopy /RESIDENT CAREGIVER: reports: Hysterectomy Cardiovascular: reports: Coronary stent Social History - Living Situation Living arrangement: At home Living Situation: With family Support System: This is mostly taken from the chart, patient was unable to recall her children's names. She was able to tell me she was , that her had a couple years ago. Her daughter Katia Flores has been her caregiver, her son has been also of support and had seen her recently to confirm her deterioration. They are quite anxious to see her. Both sons and daughter are currently avai lable, would also like to include her [id number] [place]rit[place] in our meeting, is available to support Katia in her care. 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 Patient may qualify for more hours as she transition to hospice. She has not been total care up to this point. Family History - Family History Family History: Mother: , Father: Medications/Allergies - Medications Active Medication List: Active Medications Acetaminophen (Acetaminophen 325 Mg Tablet) 650 mg PO Q4HR PRN PRN Reason: Pain 1 to 4 Albuterol/Ipratropium (Ipratropium/Albuterol 3 Ml Neb) 3 ml INH Q4HR PRN PRN Reason: Wheezing Aspirin (Aspirin Chew 81 Mg Tablet) 81 mg PO DAILY [facility] Last Admin: 07/01/21 08:47 Dose: 81 mg Documented by: Atorvastatin Calcium (Atorvastatin 10 Mg Tablet) 20 mg PO QPM [facility] Last Admin: 06/30/21 22:43 Dose: Not Given Documented by: Carvedilol (Carvedilol 12.5 Mg Tablet) 12.5 mg PO BID [facility] Last Admin: 07/01/21 08:47 Dose: 12.5 mg Documented by: Enoxaparin Sodium (Enoxaparin 40 Mg/0.4 Ml Syringe) 40 mg SUBQ DAILY [facility] Last Admin: 07/01/21 08:48 Dose: 40 mg Documented by: Furosemide (Furosemide 20 Mg/2 Ml Vial) 20 mg IVP BIDDIURETIC [facility] Last Admin: 07/01/21 05:31 Dose: Not Given Documented by: Gabapentin (Gabapentin 100 Mg Capsule) 100 mg PO TID [facility] Last Admin: 07/01/21 05:32 Dose: Not Given Documented by: Insulin Aspart (Insulin Aspart 300 Unit/3 Ml Pen) 2 - 10 unit SUBQ 0800,1200,1700,2100 [facility]; Protocol Last Admin: 07/01/21 08:47 Dose: Not Given Documented by: Levothyroxine Sodium (Levothyroxine 75 Mcg Tablet) 75 mcg PO QDAC [facility] Last Admin: 07/01/21 05:32 Dose: Not Given Documented by: Lisinopril (Lisinopril 5 Mg Tablet) 5 mg PO DAILY [facility] Last Admin: 07/01/21 08:47 Dose: 5 mg Documented by: Metoprolol Tartrate (Metoprolol 5 Mg/5 Ml Vial) 5 mg IVP Q6H PRN PRN Reason: Tachycardia Last Admin: 06/30/21 09:33 Dose: 5 mg Documented by: Morphine Sulfate (Morphine 2 Mg/Ml Carpuject) 2 mg IVP Q2HR PRN PRN Reason: PAIN Last Admin: 06/29/21 10:14 Dose: 2 mg Documented by: Multivitamins/Minerals (Multivitamin W/Minerals Tablet) 1 tab PO DAILYWM [facility] Last Admin: 07/01/21 08:47 Dose: 1 tab Documented by: Ondansetron HCl (Ondansetron 4 Mg/2 Ml Vial) 4 mg IVP Q6HR PRN PRN Reason: Nausea / Vomiting Sodium Chloride (Sodium Chloride Flush 0.9% 10 Ml Syringe) 10 ml IVP PRN PRN PRN Reason: NEEDED PER PROVIDER ORDERS Last Admin: 06/30/21 15:01 Dose: 10 ml Documented by: Sodium Chloride (Sodium Chloride Flush 0.9% 10 Ml Syringe) 10 ml IVP 0100,0900,1700 [facility] Last Admin: 07/01/21 08:48 Dose: 10 ml Documented by: Aspirin [Aspir 81] 81 mg PO DAILY 01/08/15 Carvedilol [Coreg] 12.5 mg PO BID 01/08/15 Glipizide [Glipizide ER] 2.5 mg PO DAILY 01/08/15 Levothyroxine [Synthroid] 75 mcg PO QDAC 01/08/15 Rosuvastatin Calcium [Crestor] 20 mg PO QPM 01/08/15 Gabapentin 300 mg PO TID 01/09/19 - Allergies Allergies/Adverse Reactions: Allergies Allergy/AdvReac Type Severity Reaction Status Date / Time No Known Drug Allergies Allergy Verified 06/26/21 08:10 Review of Systems - Constitutional Constitutional: reports: Fatigue, Malaise, Weakness, Poor appetite, Weight loss - Ears, Nose & Throat Ears, Nose & Throat: reports: Hearing loss, Dry mouth - Cardiovascular Cardiovascular: denies: Chest pain - Respiratory Respiratory: reports: Other (denies distress) - Musculoskeletal Musculoskeletal: reports: Muscle weakness (has been bedbound since at hospital; and previous week at home) - Integumentary Integumentary: reports: Dryness - Neurological Neurological: reports: General weakness, Memory problems - Endocrine Endocrine: reports: Diabetes type 2 - All Other Systems All Other Systems: reports: Other (limited with patients drowsiness) Physical Exam - Vital Signs Vital Signs: Vital Signs x48h Temp Pulse Pulse Resp BP Pulse Ox 07/01/21 12:21 36.8 C 96 24 116/61 95 07/01/21 11:40 87 20 07/01/21 11:02 95 07/01/21 09:11 18 96 07/01/21 08:46 103 H 18 103/48 L 96 07/01/21 07:18 36.5 C 97 20 123/76 07/01/21 04:31 36.8 C 92 18 99/60 97 - Physical Exam General Appearance: positive: No acute distress, Lethargic Eyes Bilateral: positive: Other (closes eyes for most of visitit) ENT: positive: Other (tongue with scattered white patches; has upper dentures in) Neck: positive: Trachea midline Cardiovascular: positive: Tachycardia Respiratory: positive: Diminished throughout, Other (RR 28). 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 Eating only small amounts today with assistance, does tire easily. Previous level of functioning able to toilet and ambulate short distances. - Palliative Care Discussion: 1045 Patient does not present with decision-making capacity, nor insight into her current situation. Did discuss focusing on comfort and transitioning home, did introduce hospice but did not appear to recognize language or able to engage in conversation regarding this. Did talk on the phone initially to 3 children Katia, Floyd and Madhav. Katia does have DPOA but all children were present and in agreement of focusing on not prolonging her suffering, they had wanted to try and get her home, but would not want to transition her if she was actively dying. They have not seen her since she has been in the hospital, discussed given we are transitioning to comfort care and focus we will go ahead and make arrangements for family to come in. We also discussed in the context of this may be a more prolonged process, moving forward with hospice and hospice support. Agreed would yocha dehe around and talk to family later when they come to visit. 1630 Patient more alert and able make eye contact and answer short answers, but not able to recall history, provide any insight to her understanding of her current condition, and falls back to "I am tired". Katia and Gucci came in, she perked up but stayed engaged just for a few minutes, seemed happy they were going to take her home. She is missing her salcedo retrieve "Sparkle" and Gucci showed her the photo. Katia feels patient not able to participate after few attempts at conversation, and met separately with Katia and Juan J. Reviewed goals, which are to bring her home, aware it is for end of life and Katia was surprised she did not prior to her hospitalization as she was so frail. She was very resistant to care prior to arrival, we reviewed the POLST with completing DNAR/Allow Natural and to provide Comfort Focused Care. Counseling provided regarding hospice services, what team includes and services, reviewed patient may continue to decline slowly and plateau and/or continue with a quick decline if worsens with hypoxia/respiratory failure. Reviewed would use comfort medications to provide comfort, would continue medications for comfort from baseline i..e. gabapentin. That it would not to be to return to [facility]. Reviewed equipment needed: Hospital bed, bedside commode; oxygen; and wheelchair. Will need BLS transfer. Do feel it is consistent for the goals for mother, reviewed if anxiety or agitation can use medication to keep her comfortable as worried patient may be resistant to care i.e. changing depends or bathing. INVESTIGATION DIVISION SERGEANT from hospice can bathe, can consider evans for comfort if needed. Results - Lab Results Lab results reviewed: Yes Fish Bones: 07/01/21 05:25 07/01/21 05:25 Lab and Imaging Results: Lab Results x24hrs 07/01/21 07/01/21 07/01/21 Range/Units 05:25 05:25 05:25 WBC 10.8 (4.8-10.8) x10^3/uL RBC 3.85 L (4.20-5.40) 10^6/uL Hgb 11.9 L (12.0-16.0) g/dL Hct 39.6 (37.0-47.0) % MCV 102.9 H (81.0-99.0) fL MCH 30.9 (27.0-31.0) pg MCHC 30.1 L (32.0-36.0) g/dL RDW 15.9 H (12.0-15.0) % Plt Count 149 (130-450) 10^3/uL MPV 11.5 H (7.9-10.8) fL Neut # (Auto) 8.5 H (1.5-6.6) 10^3/uL Lymph # (Auto) 1.3 L (1.5-3.5) 10^3/uL [place] # (Auto) 0.7 (0.0-1.0) 10^3/uL Eos # (Auto) 0.2 (0.0-0.7) 10^3/uL Baso # (Auto) 0.0 (0.0-0.1) 10^3/uL Absolute Nucleated RBC 0.00 x10^3/uL Nucleated RBC % 0.0 /100WBC VBG pH 7.475 H (7.31-7.41) Ionized Calcium 1.05 L (1.15-1.33) mmol/L Sodium 145 (135-145) mmol/L Potassium 3.7 (3.5-5.0) mmol/L Chloride 91 L (101-111) mmol/L Carbon Dioxide 45 H* (21-32) mmol/L Anion Gap 9.0 (6-13) BUN 34 H (6-20) mg/dL Creatinine 1.1 H (0.4-1.0) mg/dL Estimated GFR (MDRD) 47 L (>89) Glucose 143 H (70-100) mg/dL Calcium 8.5 (8.5-10.3) mg/dL Magnesium 2.2 (1.7-2.8) mg/dL B-Natriuretic Peptide (5-100) pg/mL 07/01/21 Range/Units 05:25 WBC (4.8-10.8) x10^3/uL RBC (4.20-5.40) 10^6/uL Hgb (12.0-16.0) g/dL Hct (37.0-47.0) % MCV (81.0-99.0) fL MCH (27.0-31.0) pg MCHC (32.0-36.0) g/dL RDW (12.0-15.0) % Plt Count (130-450) 10^3/uL MPV (7.9-10.8) fL Neut # (Auto) (1.5-6.6) 10^3/uL Lymph # (Auto) (1.5-3.5) 10^3/uL [place] # (Auto) (0.0-1.0) 10^3/uL Eos # (Auto) (0.0-0.7) 10^3/uL Baso # (Auto) (0.0-0.1) 10^3/uL Absolute Nucleated RBC x10^3/uL Nucleated RBC % /100WBC VBG pH (7.31-7.41) Ionized Calcium (1.15-1.33) mmol/L Sodium (135-145) mmol/L Potassium (3.5-5.0) mmol/L Chloride (101-111) mmol/L Carbon Dioxide (21-32) mmol/L Anion Gap (6-13) BUN (6-20) mg/dL Creatinine (0.4-1.0) mg/dL Estimated GFR (MDRD) (>89) Glucose (70-100) mg/dL Calcium (8.5-10.3) mg/dL Magnesium (1.7-2.8) mg/dL B-Natriuretic Peptide 191 H (5-100) pg/mL Impression and Recommendations - Palliative Care Impression: This is an 85-year-old woman who presented with worsening acute respiratory failure with hypoxia, failure to thrive, and bedbound status. Patient continues to do poorly, in the context of decision-making, and defaulting defining goals to the family as patient does not present with decision-making capacity currently. It though would be in alignment with her healthcare directive, will transition to comfort focused care. Patient's condition continues to fluctuate, will need increase support to manage at home, given goals of family will refer to hospice. Palliative care assisting with goal clarification and transition plan. Recommendations/Counseling Done: 1. Oral candidiasis. Patient with dry uncomfortable mouth, on exam (has dentures) white patches on tongue. Follow up with hospitalist regarding treatment nystatin swish and swallow, if able to participate, may need diflucan if not. 2. Advanced care planning. Patient is not improving, continues to decline with bedbound status, declining cognitive status, decreased oral intake and fragile respiratory status. Patient does not present with decision making capacity to weigh the benefits/burdens of medical decisions for outcomes of current condition. Family goals are to not prolong patient's suffering, perceive her worsening quality of life even prior to hospitalization, wanting to bring her home for her end of life though reviewed fluctuating status could have quick decline, or prolonged / plateau because of underlying chronicity of status. Hospice opening tomorrow afternoon, will make arrangements for equipment tomorrow, and admit tomorrow afternoon. 105 minutes with greater than 50% provided in counseling and coordination of care regarding family meeting, follow up with hospital team, and hospice for admission.
[2021-07-01 12:27] LABS: ABG PCO2 70 mmHg (34-45); ABG TCO2 51.8 MMOL/L (21.0-29.0)
[2021-07-01] MEDS: SODIUM CHLORIDE FLUSH 0.9% 10 ML SYRINGE IVP PRN (13:14)
--- NOTE | 2021-07-01 18:34 | PROVIDER PROGRESS NOTE ---
Assessment/Plan - Problem List (1) Acute respiratory acidosis Assessment/Plan: The patient had visibly worsening respiratory distress 2 days ago, and was using accessory muscles of respiration and respiratory rate increased to 36 when her ABG showed ventilatory failure (resp acidosis and hypoxia) and she was moved to the ICU and BIPAP started which she needed for a day. She was off BIPAP for 24 hours, on O2 per n.c. and was able to be moved out of the ICU Will continue supplemental O2, keeping sats > 88% Despite improved respiratory status after BiPAP, she continues to be tachypneic, which corresponds with what family said that she was failing to thrive for the past 1 week at home, too tired to get out of bed. Here we saw she was too tired to even feed herself. Today she had a Palliative Care consult, with daughter and son and pt meeting Alma Christianson NP and they all want comfort-directed care, and no heroics and no further BIPAP or transfer to ICU. She will transition to Hospice. Hospice may be able to take her as their patient tomorrow at her home. Alma has requested equipment. (2) Acute respiratory failure with hypoxia Assessment/Plan: She continues to require supplemental oxygen for low oxygen saturations, and we are treating CHF which is the underlying cause We will continue diuretics, continue supplemental oxygen (3) CHF exacerbation Conclusion/Plan: Echo showed patient has EF 40 to 45%, RVSP at 50 mmHG with mild to moderate Right ventricular abnormality Will continue 40 mg Lasix bid Follow daily weight. I&Os, BNP. Continue home coreg, Lipitor, low dosage lisinopril, Patient will not need follow-up with cardiology as outpatient since she is going home with Hospice. (4) Atrial fibrillation Conclusion/Plan: Patient has new Afibrillation per the EKG. Patient denied palpitation or chest pain. Heart rate is less than 100. Pt has bruises on her body, and falls at home. Continue aspirin as her blood thinner. Continue on Coreg and continue telemetry. (5) Elevated troponin Conclusion/Plan: Patient had elevated but "flat" troponins. Likely elevated due to CHF. (6) Pulmonary hypertension Conclusion/Plan: Patient has a history of pulmonary hypertension, Echo showed patient has RVSP 50 mmHg, This is likely the reason why patient had a chronic shortness of breathing in the home. Patient does not need follow-up with a semiconductor wafers tester, since raphael is going home with Hospice. (7) COPD (chronic obstructive pulmonary disease) Conclusion/Plan: Patient has history of COPD,we did not think she was in COPD exacerbation. Added Duoneb as needed, and today Xopenex prn Continue supplemental oxygen (8) Diabetes mellitus Conclusion/Plan: Patient was not on insulin for her diabetes at home. Her A1c is 5.9 On sliding scale insulin coverage while here, fingerstick Glucose checks while here. (9) HTN (hypertension) Conclusion/Plan: Stable, we are continuing patient's home coreg, also on intravenous Lasix and ALIYAH (10) CKD (chronic kidney disease) stage 3, GFR 30-59 ml/min Conclusion/Plan: Patient has history of CKD, here her creatinine is 1.0. We will follow BMP daily while on diuretics for her fluid overload (11) Hypothyroidism Conclusion/Plan: Her TSH here was 5.11, will continue her home Synthroid dose. (12) Weakness and deconditioning Patient presented with weakness, physical deconditioning. We initially consulted with PT and OT, but this was cancelled when she went to ICU for BIPAP. Despite improved respiratory status after BiPAP, she continues to be tachypneic, which corresponds with what family said that she was failing to thrive for the past 1 week at home, too tired to get out of bed. Here we saw she was too tired to even feed herself. She had a Palliative Care consult today to help establish what she wants along with family wishes. She will be transitioned to Hospice. - Current Meds Current Meds: Current Medications Generic Name Dose Route Start Last Admin Trade Name Freq PRN Reason Stop Dose Admin Aspirin 81 mg 06/26/21 12:00 07/01/21 08:47 Aspirin Chew 81 Mg Tablet PO 81 mg DAILY VENUS Administration Atorvastatin Calcium 20 mg 06/26/21 21:00 06/30/21 22:43 Atorvastatin 10 Mg Tablet PO Not Given QPM VENUS Carvedilol 12.5 mg 06/26/21 13:08 07/01/21 08:47 Carvedilol 12.5 Mg Tablet PO 12.5 mg BID VENUS Administration Enoxaparin Sodium 40 mg 06/27/21 09:00 07/01/21 08:48 Enoxaparin 40 Mg/0.4 Ml Syringe SUBQ 40 mg DAILY VENUS Administration Furosemide 20 mg 06/28/21 09:00 07/01/21 13:14 Furosemide 20 Mg/2 Ml Vial IVP 20 mg BIDDIURETIC VENUS Administration Gabapentin 100 mg 06/26/21 14:00 07/01/21 13:16 Gabapentin 100 Mg Capsule PO 100 mg TID VENUS Administration Insulin Aspart 2 - 10 unit 06/30/21 08:00 07/01/21 17:19 Insulin Aspart 300 Unit/3 Ml Pen SUBQ 6 unit 0800,1200,1700,2100 VENUS Administration Protocol Levothyroxine Sodium 75 mcg 06/27/21 07:00 07/01/21 05:32 Levothyroxine 75 Mcg Tablet PO Not Given QDAC VENUS Lisinopril 5 mg 06/27/21 09:00 07/01/21 08:47 Lisinopril 5 Mg Tablet PO 5 mg DAILY VENUS Administration Metoprolol Tartrate 5 mg 06/26/21 13:16 06/30/21 09:33 Metoprolol 5 Mg/5 Ml Vial IVP 5 mg Q6H PRN Administration Tachycardia Morphine Sulfate 2 mg 06/28/21 12:20 06/29/21 10:14 Morphine 2 Mg/Ml Carpuject IVP 2 mg Q2HR PRN Administration PAIN Multivitamins/Minerals 1 tab 06/27/21 12:00 07/01/21 08:47 Multivitamin W/Minerals Tablet PO 1 tab DAILYWM VENUS Administration Sodium Chloride 10 ml 06/26/21 11:30 07/01/21 13:14 Sodium Chloride Flush 0.9% 10 Ml Syringe IVP 10 ml PRN PRN Administration NEEDED PER PROVIDER ORDERS Sodium Chloride 10 ml 06/26/21 17:00 07/01/21 16:32 Sodium Chloride Flush 0.9% 10 Ml Syringe IVP 10 ml 0100,0900,1700 VENUS Administration - Lab Result Fish Bone Diagrams: 07/01/21 05:25 07/01/21 05:25 - Additional Planning My Orders: My Active Orders 07/02/21 05:00 CALCIUM, IONIZED ([facility]) [BG] DAILYLAB MAGNESIUM [CHEM] DAILYLAB Subjective - Subjective Patient Reports: Shortness of Breath Nursing Reports: Other (Today for several hours she is confused and appears tachypneic. Then she is more lucent and has some energy. Following that she has spells where she needs to nap today.) Objective Vital Signs: Vital Signs - 24 hr 06/30/21 06/30/21 06/30/21 20:30 20:58 21:50 Temperature 36.9 C 36.8 C Heart Rate Heart Rate [ 97 96 Brachial] Heart Rate [ Monitoring electrodes] Respiratory 20 24 Rate Blood Pressure [Left Brachial artery] Blood Pressure 108/68 91/45 L 112/75 [Right Brachial artery] O2 Saturation 97 98 07/01/21 07/01/21 07/01/21 00:01 04:31 07:18 Temperature 36.7 C 36.8 C 36.5 C Heart Rate Heart Rate [ 92 97 Brachial] Heart Rate [ 94 Monitoring electrodes] Respiratory 24 18 20 Rate Blood Pressure 94/58 L [Left Brachial artery] Blood Pressure 99/60 123/76 [Right Brachial artery] O2 Saturation 100 97 07/01/21 07/01/21 07/01/21 08:46 09:11 11:02 Temperature Heart Rate Heart Rate [ 103 H Brachial] Heart Rate [ Monitoring electrodes] Respiratory 18 18 Rate Blood Pressure [Left Brachial artery] Blood Pressure 103/48 L [Right Brachial artery] O2 Saturation 96 96 95 07/01/21 07/01/21 07/01/21 11:40 12:21 13:10 Temperature 36.8 C Heart Rate 87 Heart Rate [ 96 97 Brachial] Heart Rate [ Monitoring electrodes] Respiratory 20 24 Rate Blood Pressure 111/48 L [Left Brachial artery] Blood Pressure 116/61 [Right Brachial artery] O2 Saturation 95 07/01/21 16:08 Temperature 36.8 C Heart Rate Heart Rate [ 92 Brachial] Heart Rate [ Monitoring electrodes] Respiratory 20 Rate Blood Pressure 108/57 L [Left Brachial artery] Blood Pressure [Right Brachial artery] O2 Saturation 92 Oxygen O2 Source Nasal cannula Oxygen Flow Rate 4 I&O (Last 24 Hrs): Intake and Output Totals x24h 06/29/21 06/30/21 07/01/21 23:59 23:59 23:59 Intake Total 820 495 870 Output Total 650 500 100 Balance 170 -5 770 General: Other (Lethargic and tachypneic) HEENT: Mucous membr. moist/pink Neck: Supple Neuro: Alert, Non Focal Cardiovascular: No murmurs Respiratory: Rales Abdomen: Soft Extremities: No edema - Results Results: Laboratory Results WBC 10.8 x10^3/uL (4.8-10.8) 07/01/21 05:25 RBC 3.85 10^6/uL (4.20-5.40) L 07/01/21 05:25 Hgb 11.9 g/dL (12.0-16.0) L 07/01/21 05:25 Hct 39.6 % (37.0-47.0) 07/01/21 05:25 MCV 102.9 fL (81.0-99.0) H 07/01/21 05:25 MCH 30.9 pg (27.0-31.0) 07/01/21 05:25 MCHC 30.1 g/dL (32.0-36.0) L 07/01/21 05:25 RDW 15.9 % (12.0-15.0) H 07/01/21 05:25 Plt Count 149 10^3/uL (130-450) 07/01/21 05:25 MPV 11.5 fL (7.9-10.8) H 07/01/21 05:25 Neut # (Auto) 8.5 10^3/uL (1.5-6.6) H 07/01/21 05:25 Lymph # (Auto) 1.3 10^3/uL (1.5-3.5) L 07/01/21 05:25 [place] # (Auto) 0.7 10^3/uL (0.0-1.0) 07/01/21 05:25 Eos # (Auto) 0.2 10^3/uL (0.0-0.7) 07/01/21 05:25 Baso # (Auto) 0.0 10^3/uL (0.0-0.1) 07/01/21 05:25 Absolute Nucleated RBC 0.00 x10^3/uL 07/01/21 05:25 Nucleated RBC % 0.0 /100WBC 07/01/21 05:25 PT 13.1 secs (9.9-12.6) H 06/26/21 09:08 INR 1.2 (0.8-1.2) 06/26/21 09:08 D-Dimer 367.4 ng/mL (200.0-255.0) H 06/26/21 09:08 Bld Gas Analysis Time 1212 07/01/21 11:23 Sample Site RIGHT RADIAL 07/01/21 11:23 ABG pH 7.47 (7.35-7.45) H 07/01/21 11:23 ABG pCO2 70 mmHg (34-45) H* 07/01/21 11:23 ABG pO2 56 mmHg (80-100) L 07/01/21 11:23 ABG HCO3 49.7 mmol/L (22.0-26.0) H 07/01/21 11:23 ABG Total CO2 51.8 MMOL/L (21.0-29.0) H* 07/01/21 11:23 ABG O2 Saturation 90 % (94-98) L 07/01/21 11:23 ABG Base Excess 21.9 mmol/L (-2.0-3.0) H 07/01/21 11:23 Brayan Test POSITIVE 07/01/21 11:23 VBG pH 7.475 (7.31-7.41) H 07/01/21 05:25 Ionized Calcium 1.05 mmol/L (1.15-1.33) L 07/01/21 05:25 O2 Delivery Device NASAL CANNULA 07/01/21 11:23 O2 Liters/Min 1.00 LPM 07/01/21 11:23 FiO2 40.00 06/28/21 15:35 EPAP 4 cmH2O 06/28/21 15:35 IPAP 8 cmH2O 06/28/21 15:35 Sodium 145 mmol/L (135-145) 07/01/21 05:25 Potassium 3.7 mmol/L (3.5-5.0) 07/01/21 05:25 Chloride 91 mmol/L (101-111) L 07/01/21 05:25 Carbon Dioxide 45 mmol/L (21-32) H* 07/01/21 05:25 Anion Gap 9.0 (6-13) 07/01/21 05:25 BUN 34 mg/dL (6-20) H 07/01/21 05:25 Creatinine 1.1 mg/dL (0.4-1.0) H 07/01/21 05:25 Estimated GFR (MDRD) 47 (>89) L 07/01/21 05:25 Glucose 143 mg/dL (70-100) H 07/01/21 05:25 Estimat Average Glucose 123 mg/dL (70-100) H 06/27/21 06:03 Hemoglobin A1c % 5.9 % (4.27-6.07) 06/27/21 06:03 Calcium 8.5 mg/dL (8.5-10.3) 07/01/21 05:25 Phosphorus 2.2 mg/dL (2.5-4.6) L 06/30/21 05:04 Magnesium 2.2 mg/dL (1.7-2.8) 07/01/21 05:25 Total Bilirubin 0.6 mg/dL (0.2-1.0) 06/26/21 09:08 AST 19 IU/L (10-42) 06/26/21 09:08 ALT 27 IU/L (10-60) 06/26/21 09:08 Alkaline Phosphatase 70 IU/L (42-121) 06/26/21 09:08 Troponin I High Sens 34.7 ng/L (2.3-14.8) H* 06/28/21 15:55 B-Natriuretic Peptide 191 pg/mL (5-100) H 07/01/21 05:25 Total Protein 7.2 g/dL (6.7-8.2) 06/26/21 09:08 Albumin 3.9 g/dL (3.2-5.5) 06/26/21 09:08 Globulin 3.3 g/dL (2.1-4.2) 06/26/21 09:08 Albumin/Globulin Ratio 1.2 (1.0-2.2) 06/26/21 09:08 Lipase 27 U/L (22-51) 06/26/21 09:08 Vitamin B12 2348 pg/mL (180-914) H 06/27/21 06:03 TSH 5.11 uIU/mL (0.34-5.60) 06/26/21 09:08 Nasal Adenovirus (PCR) NOT DETECTED 06/26/21 09:15 Nasal B. parapertussis DNA (PCR) NOT DETECTED 06/26/21 09:15 Nasal Coronavir 229E PCR NOT DETECTED 06/26/21 09:15 Nasal Coronavir HKU1 PCR NOT DETECTED 06/26/21 09:15 Nasal Coronavir NL63 PCR NOT DETECTED 06/26/21 09:15 Nasal Coronavir OC43 PCR NOT DETECTED 06/26/21 09:15 Nasal Enterovir/Rhinovir PCR NOT DETECTED 06/26/21 09:15 Nasal Influenza B PCR NOT DETECTED 06/26/21 09:15 Nasal Influenza A PCR NOT DETECTED 06/26/21 09:15 Nasal Parainfluen 1 PCR NOT DETECTED 06/26/21 09:15 Nasal Parainfluen 2 PCR NOT DETECTED 06/26/21 09:15 Nasal Parainfluen 3 PCR NOT DETECTED 06/26/21 09:15 Nasal Parainfluen 4 PCR NOT DETECTED 06/26/21 09:15 Nasal RSV (PCR) NOT DETECTED 06/26/21 09:15 Nasal Screen MRSA (PCR) NEGATIVE (NEGATIVE) 06/28/21 17:20 Nasal B.pertussis DNA PCR NOT DETECTED 06/26/21 09:15 Nasal C.pneumoniae (PCR) NOT DETECTED 06/26/21 09:15 Shine Human Metapneumo PCR NOT DETECTED 06/26/21 09:15 Nasal M.pneumoniae (PCR) NOT DETECTED 06/26/21 09:15 Nasal SARS-CoV-2 (PCR) NOT DETECTED 06/26/21 09:15 - Procedures Procedures: Procedures CARPAL TUNNEL RELEASE (01/14/15) REPLACEMENT OF LEFT LENS WITH SYNTH SUB, PERC APPROACH (06/23/18) REPLACEMENT OF RIGHT LENS WITH SYNTH SUB, PERC APPROACH (07/28/18) Sepsis Event Note (H) - Evaluation Current Stage of Sepsis: Ruled out
[2021-07-01] MEDS: ATORVASTATIN 10 MG TABLET PO SCH (21:22)
[2021-07-02] MEDS: SODIUM CHLORIDE FLUSH 0.9% 10 ML SYRINGE IVP SCH ×3 (00:51→20:19)
[2021-07-02] MEDS: GABAPENTIN 100 MG CAPSULE PO SCH ×3 (05:46→15:01)
[2021-07-02] MEDS: FUROSEMIDE 20 MG/2 ML VIAL IVP SCH (05:46)
[2021-07-02] MEDS: LEVOTHYROXINE 75 MCG TABLET PO SCH (05:46)
[2021-07-02 06:02] LABS: CALCIUM, IONIZED 1.04 mmol/L (1.15-1.33); VBG PH 7.52 (7.31-7.41)
[2021-07-02] MEDS: lisinopriL 5 MG TABLET PO SCH (08:34)
[2021-07-02] MEDS: ASPIRIN CHEW 81 MG TABLET PO SCH (08:34)
[2021-07-02] MEDS: MULTIVITAMIN W/MINERALS TABLET PO SCH (08:34)
[2021-07-02] MEDS: carvediloL 12.5 MG TABLET PO SCH ×2 (08:34→20:19)
[2021-07-02] MEDS: ENOXAPARIN 40 MG/0.4 ML SYRINGE SUBQ SCH (08:35)
[2021-07-02] MEDS: INSULIN ASPART 300 UNIT/3 ML PEN SUBQ SCH ×2 (08:36→11:38)
[2021-07-02] MEDS: MORPHINE 2 MG/ML CARPUJECT IVP PRN ×3 (08:56→14:58)
[2021-07-02] MEDS ORDERED: MORPHINE SOL 10 MG/0.5 ML ORAL SYRINGE PO PRN (09:19)
--- NOTE | 2021-07-02 13:10 | PROVIDER PROGRESS NOTE ---
Assessment/Plan - Problem List (1) Acute respiratory acidosis Assessment/Plan: (1) Acute respiratory acidosis Assessment/Plan: The patient had visibly worsening respiratory distress 2 days ago, and was using accessory muscles of respiration and respiratory rate increased to 36 when her ABG showed ventilatory failure (resp acidosis and hypoxia) and she was moved to the ICU and BIPAP started which she needed for a day. She was off BIPAP for 24 hours, on O2 per n.c. and was able to be moved out of the ICU Will continue supplemental O2, keeping sats > 88Will change iv Lasix to po Lasix after today Despite improved respiratory status after BiPAP, she continues to be tachypneic, which corresponds with what family said that she was failing to thrive for the past 1 week at home, too tired to get out of bed. Here we saw she was too tired to even feed herself. Yesterday she had a Palliative Care consult, with daughter and son and pt meeting Alma Christianson NP and they all want comfort-directed care, and no heroics and no further BIPAP or transfer to ICU. She will transition to Hospice. Hospice will be able to take her as their patient tomorrow afternoon at her home. Alma has requested equipment to be delivered. (2) Acute respiratory failure with hypoxia Assessment/Plan: She continues to require supplemental oxygen for low oxygen saturations, and we are treating CHF which is the underlying cause We will continue diuretics changing from iv Lasix (stopping today) to po Lasix tomorrow. Continue supplemental oxygen under Hospice at the time of [facility]. (3) CHF exacerbation Conclusion/Plan: Echo showed patient has EF 40 to 45%, RVSP at 50 mmHG with mild to moderate Right ventricular abnormality Will continue Lasix po after today Continue home coreg, Lipitor, low dosage lisinopril, Patient is going home with Hospice on O2 (4) Atrial fibrillation Conclusion/Plan: Patient has new Afibrillation per the EKG. Patient denied palpitation or chest pain. Heart rate is less than 100. Pt has bruises on her body, and falls at home. Continue aspirin as her blood thinner. Continue on Coreg Will stop telemetry (5) Elevated troponin Conclusion/Plan: Patient had elevated but "flat" troponins, due to CHF. (6) Pulmonary hypertension Conclusion/Plan: Patient has a history of pulmonary hypertension, Echo showed patient has RVSP 50 mmHg, This is likely the reason why patient had a chronic shortness of breathing in the home. (7) COPD (chronic obstructive pulmonary disease) Conclusion/Plan: Patient has history of COPD,we did not think she was in COPD exacerbation. Added Duoneb as needed, and today Xopenex prn Continue supplemental oxygen for comfort under Hospice care (8) Diabetes mellitus Conclusion/Plan: Patient was not on insulin for her diabetes at home. Her A1c is 5.9 On sliding scale insulin coverage while here, fingerstick Glucose checks while here. Will stop these and allow comfort eating. (9) HTN (hypertension) Conclusion/Plan: Stable, we are continuing patient's home coreg, also on intravenous Lasix and ALIYAH Will check BP only daily (10) CKD (chronic kidney disease) stage 3, GFR 30-59 ml/min Conclusion/Plan: Patient has history of CKD, here her creatinine is 1.0. No further blood draws (11) Hypothyroidism Conclusion/Plan: Her TSH here was 5.11, we are continuing her home Synthroid dose. (12) Weakness and deconditioning Patient presented with weakness, physical deconditioning. We initially consulted with PT and OT, but this was cancelled when she went to ICU for BIPAP. Despite improved respiratory status after BiPAP, she continues to be tachypneic, which corresponds with what family said that she was failing to thrive for the past 1 week at home, too tired to get out of bed. Here we saw she was too tired to even feed herself. She had a Palliative Care consult yesterday and they all want comfort-directed care, and no heroics and no further BIPAP or transfer to ICU. She will transition to Hospice. Hospice will be able to take her as their patient tomorrow afternoon at her home. Alma has requested equipment to be delivered. - Current Meds Current Meds: Current Medications Generic Name Dose Route Start Last Admin Trade Name Freq PRN Reason Stop Dose Admin Aspirin 81 mg 06/26/21 12:00 07/02/21 08:34 Aspirin Chew 81 Mg Tablet PO 81 mg DAILY VENUS Administration Atorvastatin Calcium 20 mg 06/26/21 21:00 07/01/21 21:22 Atorvastatin 10 Mg Tablet PO 20 mg QPM VENUS Administration Carvedilol 12.5 mg 06/26/21 13:08 07/02/21 08:34 Carvedilol 12.5 Mg Tablet PO 12.5 mg BID VENUS Administration Enoxaparin Sodium 40 mg 06/27/21 09:00 07/02/21 08:35 Enoxaparin 40 Mg/0.4 Ml Syringe SUBQ 40 mg DAILY VENUS Administration Gabapentin 100 mg 06/26/21 14:00 07/02/21 05:46 Gabapentin 100 Mg Capsule PO 100 mg TID VENUS Administration Insulin Aspart 2 - 10 unit 06/30/21 08:00 07/02/21 11:38 Insulin Aspart 300 Unit/3 Ml Pen SUBQ 8 unit 0800,1200,1700,2100 [facility] Administration Protocol Levothyroxine Sodium 75 mcg 06/27/21 07:00 07/02/21 05:46 Levothyroxine 75 Mcg Tablet PO 75 mcg QDAC VENUS Administration Lisinopril 5 mg 06/27/21 09:00 07/02/21 08:34 Lisinopril 5 Mg Tablet PO 5 mg DAILY VENUS Administration Metoprolol Tartrate 5 mg 06/26/21 13:16 06/30/21 09:33 Metoprolol 5 Mg/5 Ml Vial IVP 5 mg Q6H PRN Administration Tachycardia Morphine Sulfate 2 mg 06/28/21 12:20 07/02/21 11:38 Morphine 2 Mg/Ml Carpuject IVP 2 mg Q2HR PRN Administration PAIN Multivitamins/Minerals 1 tab 06/27/21 12:00 07/02/21 08:34 Multivitamin W/Minerals Tablet PO 1 tab DAILYWM VENUS Administration Sodium Chloride 10 ml 06/26/21 11:30 07/01/21 13:14 Sodium Chloride Flush 0.9% 10 Ml Syringe IVP 10 ml PRN PRN Administration NEEDED PER PROVIDER ORDERS Sodium Chloride 10 ml 06/26/21 17:00 07/02/21 08:37 Sodium Chloride Flush 0.9% 10 Ml Syringe IVP 10 ml 0100,0900,1700 [facility] Administration - Lab Result Fish Bone Diagrams: 07/01/21 05:25 07/01/21 05:25 - Additional Planning My Orders: My Active Orders 07/01/21 18:42 Telemetry-Discontinue [RC] .ONCE 07/02/21 09:19 Morphine Oral Soln [Roxanol] 10 mg PO Q8HR PRN 07/02/21 11:15 Omer Continuation and Care [RC] QSHIFT Omer Insertion [RC] QSHIFT 07/03/21 09:00 Furosemide [Lasix] 40 mg PO DAILY Subjective - Subjective Nursing Reports: Other (Unchanged: weak and somnolent, then awakens and has brief energy, eating minimally) Objective Vital Signs: Vital Signs - 24 hr 07/01/21 07/01/21 07/01/21 13:10 16:08 20:02 Temperature 36.8 C Heart Rate Heart Rate [ 97 92 104 H Brachial] Respiratory 20 Rate Blood Pressure 111/48 L 108/57 L 146/83 H [Left Brachial artery] Blood Pressure [Right Brachial artery] O2 Saturation 92 07/01/21 07/01/21 07/02/21 20:50 21:21 00:52 Temperature 36.8 C Heart Rate 94 Heart Rate [ 102 H Brachial] Respiratory 20 19 20 Rate Blood Pressure 131/88 H [Left Brachial artery] Blood Pressure [Right Brachial artery] O2 Saturation 91 L 91 L 07/02/21 07:18 Temperature 36.7 C Heart Rate Heart Rate [ 99 Brachial] Respiratory 24 Rate Blood Pressure [Left Brachial artery] Blood Pressure 143/65 H [Right Brachial artery] O2 Saturation 92 Oxygen O2 Source Nasal cannula Oxygen Flow Rate 4 I&O (Last 24 Hrs): Intake and Output Totals x24h 06/30/21 07/01/21 07/02/21 23:59 23:59 23:59 Intake Total 495 1120 400 Output Total 500 300 50 Balance -5 820 350 General: Other (somnolent) HEENT: Mucous membr. moist/pink Neck: Supple Neuro: Alert Cardiovascular: Regular rate Respiratory: Other (Tachypneic) Abdomen: Soft Extremities: No edema - Results Results: Laboratory Results WBC 10.8 x10^3/uL (4.8-10.8) 07/01/21 05:25 RBC 3.85 10^6/uL (4.20-5.40) L 07/01/21 05:25 Hgb 11.9 g/dL (12.0-16.0) L 07/01/21 05:25 Hct 39.6 % (37.0-47.0) 07/01/21 05:25 MCV 102.9 fL (81.0-99.0) H 07/01/21 05:25 MCH 30.9 pg (27.0-31.0) 07/01/21 05:25 MCHC 30.1 g/dL (32.0-36.0) L 07/01/21 05:25 RDW 15.9 % (12.0-15.0) H 07/01/21 05:25 Plt Count 149 10^3/uL (130-450) 07/01/21 05:25 MPV 11.5 fL (7.9-10.8) H 07/01/21 05:25 Neut # (Auto) 8.5 10^3/uL (1.5-6.6) H 07/01/21 05:25 Lymph # (Auto) 1.3 10^3/uL (1.5-3.5) L 07/01/21 05:25 [place] # (Auto) 0.7 10^3/uL (0.0-1.0) 07/01/21 05:25 Eos # (Auto) 0.2 10^3/uL (0.0-0.7) 07/01/21 05:25 Baso # (Auto) 0.0 10^3/uL (0.0-0.1) 07/01/21 05:25 Absolute Nucleated RBC 0.00 x10^3/uL 07/01/21 05:25 Nucleated RBC % 0.0 /100WBC 07/01/21 05:25 PT 13.1 secs (9.9-12.6) H 06/26/21 09:08 INR 1.2 (0.8-1.2) 06/26/21 09:08 D-Dimer 367.4 ng/mL (200.0-255.0) H 06/26/21 09:08 Bld Gas Analysis Time 1212 07/01/21 11:23 Sample Site RIGHT RADIAL 07/01/21 11:23 ABG pH 7.47 (7.35-7.45) H 07/01/21 11:23 ABG pCO2 70 mmHg (34-45) H* 07/01/21 11:23 ABG pO2 56 mmHg (80-100) L 07/01/21 11:23 ABG HCO3 49.7 mmol/L (22.0-26.0) H 07/01/21 11:23 ABG Total CO2 51.8 MMOL/L (21.0-29.0) H* 07/01/21 11:23 ABG O2 Saturation 90 % (94-98) L 07/01/21 11:23 ABG Base Excess 21.9 mmol/L (-2.0-3.0) H 07/01/21 11:23 Brayan Test POSITIVE 07/01/21 11:23 VBG pH 7.520 (7.31-7.41) H 07/02/21 05:53 Ionized Calcium 1.04 mmol/L (1.15-1.33) L 07/02/21 05:53 O2 Delivery Device NASAL CANNULA 07/01/21 11:23 O2 Liters/Min 1.00 LPM 07/01/21 11:23 FiO2 40.00 06/28/21 15:35 EPAP 4 cmH2O 06/28/21 15:35 IPAP 8 cmH2O 06/28/21 15:35 Sodium 145 mmol/L (135-145) 07/01/21 05:25 Potassium 3.7 mmol/L (3.5-5.0) 07/01/21 05:25 Chloride 91 mmol/L (101-111) L 07/01/21 05:25 Carbon Dioxide 45 mmol/L (21-32) H* 07/01/21 05:25 Anion Gap 9.0 (6-13) 07/01/21 05:25 BUN 34 mg/dL (6-20) H 07/01/21 05:25 Creatinine 1.1 mg/dL (0.4-1.0) H 07/01/21 05:25 Estimated GFR (MDRD) 47 (>89) L 07/01/21 05:25 Glucose 143 mg/dL (70-100) H 07/01/21 05:25 Estimat Average Glucose 123 mg/dL (70-100) H 06/27/21 06:03 Hemoglobin A1c % 5.9 % (4.27-6.07) 06/27/21 06:03 Calcium 8.5 mg/dL (8.5-10.3) 07/01/21 05:25 Phosphorus 2.2 mg/dL (2.5-4.6) L 06/30/21 05:04 Magnesium 2.1 mg/dL (1.7-2.8) 07/02/21 05:53 Total Bilirubin 0.6 mg/dL (0.2-1.0) 06/26/21 09:08 AST 19 IU/L (10-42) 06/26/21 09:08 ALT 27 IU/L (10-60) 06/26/21 09:08 Alkaline Phosphatase 70 IU/L (42-121) 06/26/21 09:08 Troponin I High Sens 34.7 ng/L (2.3-14.8) H* 06/28/21 15:55 B-Natriuretic Peptide 191 pg/mL (5-100) H 07/01/21 05:25 Total Protein 7.2 g/dL (6.7-8.2) 06/26/21 09:08 Albumin 3.9 g/dL (3.2-5.5) 06/26/21 09:08 Globulin 3.3 g/dL (2.1-4.2) 06/26/21 09:08 Albumin/Globulin Ratio 1.2 (1.0-2.2) 06/26/21 09:08 Lipase 27 U/L (22-51) 06/26/21 09:08 Vitamin B12 2348 pg/mL (180-914) H 06/27/21 06:03 TSH 5.11 uIU/mL (0.34-5.60) 06/26/21 09:08 Nasal Adenovirus (PCR) NOT DETECTED 06/26/21 09:15 Nasal B. parapertussis DNA (PCR) NOT DETECTED 06/26/21 09:15 Nasal Coronavir 229E PCR NOT DETECTED 06/26/21 09:15 Nasal Coronavir HKU1 PCR NOT DETECTED 06/26/21 09:15 Nasal Coronavir NL63 PCR NOT DETECTED 06/26/21 09:15 Nasal Coronavir OC43 PCR NOT DETECTED 06/26/21 09:15 Nasal Enterovir/Rhinovir PCR NOT DETECTED 06/26/21 09:15 Nasal Influenza B PCR NOT DETECTED 06/26/21 09:15 Nasal Influenza A PCR NOT DETECTED 06/26/21 09:15 Nasal Parainfluen 1 PCR NOT DETECTED 06/26/21 09:15 Nasal Parainfluen 2 PCR NOT DETECTED 06/26/21 09:15 Nasal Parainfluen 3 PCR NOT DETECTED 06/26/21 09:15 Nasal Parainfluen 4 PCR NOT DETECTED 06/26/21 09:15 Nasal RSV (PCR) NOT DETECTED 06/26/21 09:15 Nasal Screen MRSA (PCR) NEGATIVE (NEGATIVE) 06/28/21 17:20 Nasal B.pertussis DNA PCR NOT DETECTED 06/26/21 09:15 Nasal C.pneumoniae (PCR) NOT DETECTED 06/26/21 09:15 Shine Human Metapneumo PCR NOT DETECTED 06/26/21 09:15 Nasal M.pneumoniae (PCR) NOT DETECTED 06/26/21 09:15 Nasal SARS-CoV-2 (PCR) NOT DETECTED 06/26/21 09:15 - Procedures Procedures: Procedures CARPAL TUNNEL RELEASE (01/14/15) REPLACEMENT OF LEFT LENS WITH SYNTH SUB, PERC APPROACH (06/23/18) REPLACEMENT OF RIGHT LENS WITH SYNTH SUB, PERC APPROACH (07/28/18) Sepsis Event Note (H) - Evaluation Current Stage of Sepsis: Ruled out
[2021-07-03] MEDS: SODIUM CHLORIDE FLUSH 0.9% 10 ML SYRINGE IVP SCH ×2 (02:22→10:08)
[2021-07-03] MEDS: LEVOTHYROXINE 75 MCG TABLET PO SCH (05:55)
[2021-07-03] MEDS: GABAPENTIN 100 MG CAPSULE PO SCH ×2 (05:55→13:48)
[2021-07-03] MEDS ORDERED: FUROSEMIDE 40 MG TABLET PO SCH (09:00)
[2021-07-03 09:28] VITALS: BP 101/61
[2021-07-03] MEDS: MORPHINE 2 MG/ML CARPUJECT IVP PRN (10:07)
[2021-07-03] MEDS: ASPIRIN CHEW 81 MG TABLET PO SCH (10:08)
[2021-07-03] MEDS: lisinopriL 5 MG TABLET PO SCH (10:08)
[2021-07-03] MEDS: carvediloL 12.5 MG TABLET PO SCH (10:08)
[2021-07-03] MEDS: MULTIVITAMIN W/MINERALS TABLET PO SCH (10:08)
--- NOTE | 2021-07-03 11:15 | Discharge Plan ---
Discharge Plan Problem Reviewed?: Yes Disposition: 50 Hospice/Home DC/Xfer Condition: Poor Prescriptions: Acetaminophen 325 mg PO Q6H PRN #1 bottle PRN Reason: Pain Or Fever > 38c (100.4f) LORazepam [Ativan] 0.5 mg PO Q6H PRN #10 tablet PRN Reason: Anxiety Bisacodyl Supp [Dulcolax Supp] 10 mg [place] DAILY PRN #3 supp PRN Reason: Constipation Haloperidol Oral Soln [Haldol Oral Soln] 1 mg PO Q6H PRN #15 ml PRN Reason: Agitation Furosemide [Lasix] 40 mg PO DAILY #30 tablet Hyoscyamine Sulfate [Levsin-Sl] 0.125 mg SL Q4H PRN #12 tab PRN Reason: Excessive Secretions Albuterol Sulfate [Proair Hfa Inhaler] 1 - 2 puffs INH Q4H PRN #1 inh PRN Reason: Shortness Of Air/Wheezing Morphine Oral Soln [Roxanol] 5 mg PO Q4H PRN #30 ml PRN Reason: Dyspnea Diet: Soft Activity Restrictions: Activity as Tolerated Health Concerns: The patient was admitted with weakness and shortness of breath, treated for CHF and has underlying COPD, now needs oxygen and because of failure to thrive she was seen by Palliative Care provider and is transitioning to Hospice for end-of-life care at home. Plan of Treatment: As above. Care Goals: Comfort is the goal. Assessment: The patient and family understand and are agreeable with the plan. Additional Instructions or Follow Up instructions: Use oxygen via nasal cannula Omer has been inserted to go home with No Smoking: If you smoke, Please STOP! Call for help. Follow-up with: Elijah Chahal MD [Provider Admit Priv/Credential] -
--- NOTE | 2021-07-03 11:32 | DISCHARGE SUMMARY ---
Discharge Summary Admit Date: 06/26/21 Discharge Date: 07/03/21 Discharging Provider: Dr Sabina Guillen Primary Care Provider: Dr Sarah Garay Code Status: Do Not Attempt Resuscitation Condition at Discharge: Poor Discharge Disposition: 50 Hospice/Home DC/Xfer - HPI History of Present Illness: From the admission H&P of Bj Barrios NP: This is an 85-year-old white female with Past medical history significant for HTN, CKD, HLD, CHF, COPD, Pulmonary hypertension, chronic SOB, DM2, osteoarthritis, who present ER complain of shortness of breath and weakness. She report she has been sick for 6 days. Her main complaint is shortness of breath. she report mild cough but denies fever, chill, or chest pain. she report her COVID test was negative, and she has been vaccinated. Patient went to see her PCP, patient had x-ray done 8 days ago which show basilar plate atelectasis versus scar. when pt was arrival, pt was found to have 65% on room air. Today ch est x-ray show congestive heart failure exacerbation, probably pulmonary artery hypertension. Patient also had a CTA of the chest which show no evidence of pulmonary embolism, no aortic dissection, Bilaterally small to moderate pleural effusions, and right larger than left with an adjacent atelectasis, Diffuse peribronchial cuffing suggestive of nonspecific bronchitis or reactive airway disease. Routine laboratory tests that show patient had slightly elevated troponin at 50, BNP is 740. EKG show atrial fibrillation with heart rate at 101. Given above pt's medical conditions, Medical team was consulted for admission of this patient. Discussed the care goal with patient, patient clearly state she wants to be DNR - HOSPITAL COURSE Hospital Course: (1) Acute respiratory failure with hypoxia She was put on supplemental oxygen for low oxygen saturations. The cause was found to be CHF. She was started on iv Lasix, changed to po Lasix before discharge. Despite improved respiratory status, she continued to be weak and tachypneic, which corresponded with what family said that she was failing to thrive for the past 1 week at home, too tired to get out of bed. Here she was too tired to even feed herself. She had a Palliative Care consult with Alma Christianson NP and they all want comfort-directed care (no transfer back to the ICU or BIPAP). She will continue supplemental oxygen and go home with Hospice accepting her as their patient. (2) Acute respiratory acidosis The patient had visibly worsening respiratory distress on 2nd day of admission, was using accessory muscles of respiration and respiratory rate increased to 36. Her ABG showed resp acidosis and hypoxia, and she was moved to the ICU and needed BIPAP for 24 hours, then tolerated being back to O2 via n.c. and was able to be moved out of the ICU. (3) CHF, new onset Echo showed LV EF 40 to 45%, RVSP at 50 mmHg. She stabilized on new Lasix and continued Coreg, low dosage lisinopril and daily Lasix. No Cardiology F/U is planned since patient is going home with Hospice on O2. (4) Paroxysmal Atrial fibrillation, new onset Patient has new Atrial fibrillation per the EKG. Heart rate was controlled on meds and because of bruises on her body, and falls at home, she was put on aspirin. (5) Elevated troponin Patient had elevated but "flat" troponins, due to CHF. (6) Pulmonary hypertension Patient has a history of pulmonary hypertension and COPD. Echo showed her PA pressure was 50 mmHg. (7) COPD (chronic obstructive pulmonary disease) Patient has history of COPD. We ordered Duoneb and Xopenex prn. She was dis charged on Albuterol Inhaler prn (8) Diabetes mellitus Patient was not on insulin for her diabetes at home. Her A1c returned at 5.9. We stopped the insulin coverage for fingerstick Glucose checks, and allowed comfort eating. (9) HTN (hypertension) Stable, on home Coreg dose, and now on Lasix and ALIYAH-I. (10) CKD (chronic kidney disease) stage 3, GFR 30-59 ml/min Patient has history of CKD, here her creatinine was 1.0. (11) Hypothyroidism Her TSH here was 5.11, and we continued her home Synthroid dose. (12) Weakness and deconditioning Patient presented with weakness, physical deconditioning. We initially consulted with PT and OT, but this was cancelled when she went into the ICU for BIPAP. Despite improved respiratory status after BiPAP, she continued to be tachypneic, which corresponded with what family had said, that she was failing to thrive for the past 1 week at home, and was too tired to get out of bed. She had a Palliative Care consult and will transition to care under Hospice at her home. - ALLERGIES Allergies/Adverse Reactions: Allergies Allergy/AdvReac Type Severity Reaction Status Date / Time No Known Drug Allergies Allergy Verified 06/26/21 08:10 - MEDICATIONS Home Medications: Ambulatory Orders Medication Instructions Recorded Confirmed Aspirin [Aspir 81] 81 mg PO DAILY 01/08/15 06/26/21 Carvedilol [Coreg] 12.5 mg PO BID 01/08/15 06/26/21 Glipizide [Glipizide ER] 2.5 mg PO DAILY 01/08/15 06/26/21 Levothyroxine [Synthroid] 75 mcg PO QDAC 01/08/15 06/26/21 Gabapentin 300 mg PO TID 01/09/19 06/26/21 Amlodipine Besylate 10 mg PO DAILY #20 tablet 02/28/19 06/26/21 Acetaminophen 325 mg PO Q6H PRN #1 bottle 07/03/21 Acetaminophen [Tylenol] 650 mg PO Q4HR PRN tablet 07/03/21 Albuterol Sulfate [Proair Hfa 1 - 2 puffs INH Q4H PRN #1 inh 07/03/21 Inhaler] Bisacodyl Supp [Dulcolax Supp] 10 mg [place] DAILY PRN #3 supp 07/03/21 Furosemide [Lasix] 40 mg PO DAILY #30 tablet 07/03/21 Haloperidol Oral Soln [Haldol Oral 1 mg PO Q6H PRN #15 ml 07/03/21 Soln] Hyoscyamine Sulfate [Levsin-Sl] 0.125 mg SL Q4H PRN #12 tab 07/03/21 LORazepam [Ativan] 0.5 mg PO Q6H PRN #10 tablet 07/03/21 Morphine Oral Soln [Roxanol] 5 mg PO Q4H PRN #30 ml 07/03/21 - PHYSICAL EXAM AT DISCHARGE General Appearance: positive: Alert, Mild distress (respiratory: shallow breaths) Eyes Bilateral: positive: Normal inspection, EOMI ENT: positive: ENT inspection nml, No signs of dehydration Neck: positive: Nml inspection, Other ((+) JVD) Respiratory: positive: Breath sounds nml, Other (shallow resps) Cardiovascular: positive: Other (Distant heart sounds due to barrel chest, thin) Abdomen: positive: Non-tender, Other (Mildly distended, not hypertympanic) Skin: positive: Warm, Dry Extremities: positive: Non-tender, Other (Trace pre-tibial edema) Neurologic/Psychiatric: positive: Disoriented to time (Non-focal) - LABS Result Diagrams: 07/01/21 05:25 07/01/21 05:25 - DIAGNOSTIC IMAGING Diagnostic Imaging Results: Final report reviewed - SEPSIS Current Stage of Sepsis: Ruled out - FOLLOW UP Follow Up: She is going home and will be under Hospice care (Dr Chahal). - TIME SPENT Time Spent in Discharge (Minutes): 50
== END 2021-07-03 15:30 | disposition hospice, home (50) | DRG 189 ==
LOC: EDUNIT# → ED 07:57 → MS2 11:30 → ICU 06-28 14:21 → MS2 06-30 16:30
PROVIDERS: ADMIT Nurse Practitioner Gerontology; ATTEND Internal Medicine
DX: I11.0 Hypertensive heart disease with heart failure (principal); I50.9 Heart failure, unspecified; R09.02 Hypoxemia; E78.00 Pure hypercholesterolemia, unspecified; J44.9 Chronic obstructive pulmonary disease, unspecified; E11.9 Type 2 diabetes mellitus without complications; J96.01 Acute respiratory failure with hypoxia; Z20.822 Contact with and (suspected) exposure to COVID-19; I13.0 Hypertensive heart and chronic kidney disease with heart failure and stage 1 through stage 4 chronic kidney disease, or unspecified chronic kidney disease; E87.2 Acidosis; J44.0 Chronic obstructive pulmonary disease with (acute) lower respiratory infection; B37.0 Candidal stomatitis; I50.20 Unspecified systolic (congestive) heart failure; J40 Bronchitis, not specified as acute or chronic; E11.22 Type 2 diabetes mellitus with diabetic chronic kidney disease; N18.30 Chronic kidney disease, stage 3 unspecified; I48.0 Paroxysmal atrial fibrillation; I27.20 Pulmonary hypertension, unspecified; R62.7 Adult failure to thrive; Z68.22 Body mass index [BMI] 22.0-22.9, adult; E78.5 Hyperlipidemia, unspecified; E03.9 Hypothyroidism, unspecified; M19.90 Unspecified osteoarthritis, unspecified site; R53.1 Weakness; H91.90 Unspecified hearing loss, unspecified ear; Z66 Do not resuscitate; Z51.5 Encounter for palliative care; T14.8XXA Other injury of unspecified body region, initial encounter; X58.XXXA Exposure to other specified factors, initial encounter; Z91.81 History of falling; Z79.82 Long term (current) use of aspirin; Z79.84 Long term (current) use of oral hypoglycemic drugs; Z79.899 Other long term (current) drug therapy; Z95.5 Presence of coronary angioplasty implant and graft; Z87.891 Personal history of nicotine dependence
CPT/HCPCS: 36415; 36600; 71045; 71275; 80048; 80053; 82330; 82607; 82803; 83036; 83690; 83735; 83880; 84100; 84443; 84484; 85025; 85379; 85610; 87150; 87631; 93005; 93306; 94640; 94660; 96374; 97161; 97165; 99223; 99284; 99285; A9270; J1650; Q9967; 0202U

== ENCOUNTER 2021-07-03 15:15 | Outpatient (CLI) | payer MEDICARE, OTHER | END 2021-07-03 15:16 | disposition hospice, home (50) | LOC: EMS 15:15 | PROVIDERS: ATTEND Internal Medicine | DX: Z51.5 Encounter for palliative care (principal) | CPT/HCPCS: A0425; A0428 ==